=== PATIENT | female | born 1950 | race Caucasian/White ===

== ENCOUNTER → 2021-04-05 09:42 | Outpatient (CLI) | payer BC, SELFPAY | PROVIDERS: PCP Internal Medicine; Referring Provider Internal Medicine; Visit Provider Internal Medicine | DX: M81.0 Age-related osteoporosis without current pathological fracture (principal) | CPT/HCPCS: 77080 ==

== ENCOUNTER → 2021-07-24 16:24 | Outpatient (CLI) | payer BC, SELFPAY ==
[2021-07-24 16:50] LABS: Appearance Urine UA CLEAR; Bilirubin Urine UA NEGATIVE (NEGATIVE); Color Urine UA YELLOW; Glucose Urine UA NEGATIVE (Negative); Ketones Urine UA NEGATIVE (NEGATIVE); Leukocyte Esterase Urine UA 1+ (NEGATIVE); Nitrite Urine UA POSITIVE (Negative); Occult Blood Urine UA TRACE-LYSED (Negative); Protein Urine UA NEGATIVE (Negative); Specific Gravity Urine UA 1.025 (1.000-1.035); Urobilinogen Urine UA 0.2 E.U./dL (0.2)
[2021-07-24 17:01] LABS: Add Manual Diff / Slide Review NO; Amorphous Sediment Urine 2+; Bacteria Urine Moderate (10-30); Basophils Absolute Auto 0 /uL (0-100); Basophils Percent Auto 0.4 % (0-2); Culture Indicated Urine Cult Not Indicated; Eosinophils Absolute Auto 100 /uL (0-450); Eosinophils Percent Auto 1.8 % (2-4); Hematocrit 40.1 % (36-46); Hemoglobin 13.2 g/dL (12.0-16.0); Lymphocytes Absolute Auto 900 /uL (1100-4500); Lymphocytes Percent Auto 19.8 % (25-40); Mean Corpuscular HGB Conc 32.8 % (30-36); Mean Corpuscular Hemoglobin 30.8 PG (26-34); Mean Corpuscular Volume 93.9 fL (80-100); Monocytes Absolute Auto 400 /uL (0-900); Monocytes Percent Auto 7.5 % (3-14); Neutrophils Absolute Auto 3300 /uL (1500-7000); Neutrophils Percent Auto 70.5 % (50-75); Platelet Count 211 X10^3/uL (150-400); RBC Urine None Seen (0-5/HPF); Red Blood Cell Count 4.27 X10^6/uL (4.0-5.2); Red Cell Distribution Width 14.2 % (11.6-14.8); Renal Epithelial Cells Urine 5-10/HPF (0-1/HPF); Squamous Epithelial Cell Urine 10-30 /HPF (0-5/HPF); WBC Urine 5-10/HPF (0-5/HPF); White Blood Cell Count 4.7 X10^3/uL (4.5-11.0)
[2021-07-24 17:02] LABS: Hemoglobin A1C% w Est Avg Glu 4.8 % (4.0-6.0)
[2021-07-24 17:11] LABS: BUN Creatinine Ratio 17.9 (6-22); Blood Urea Nitrogen 17 mg/dL (7-17); Calcium 9.3 mg/dL (8.4-10.2); Carbon Dioxide 29 mmol/L (22-32); Chloride 107 mmol/L (98-107); Estimated Glomerular Filt Rate 58.5 mL/min (>60); Glucose 104 mg/dL (80-110); HEMOLYSIS < 15 (0-50); Potassium 4.4 mmol/L (3.4-5.1); Sodium 139 mmol/L (137-145)
== END ==
PROVIDERS: PCP Internal Medicine; Referring Provider Orthopaedic Surgery; Visit Provider Orthopaedic Surgery
DX: Z01.812 Encounter for preprocedural laboratory examination (principal); R73.9 Hyperglycemia, unspecified; N39.0 Urinary tract infection, site not specified
CPT/HCPCS: 36415; 80048; 81001; 83036; 85025; 93005; 93010

== ENCOUNTER → 2021-08-19 09:28 | Outpatient (CLI) | payer BC, SELFPAY ==
[2021-08-19 16:32] LABS: COVID19 -Nasal RAPID Negative (Negative)
== END ==
PROVIDERS: PCP Internal Medicine; Visit Provider Family Medicine Sleep Medicine
DX: Z20.822 Contact with and (suspected) exposure to COVID-19 (principal)
CPT/HCPCS: 87635; C9803

== ENCOUNTER 2021-08-20 09:00 | Day surgery (SDC) | payer BC, SELFPAY ==
[2021-08-20 12:17] VITALS: BMI 42.1
== END 2021-08-20 23:59 | disposition home or self-care (01) ==
LOC: OR 09-11 09:58
PROVIDERS: PCP Internal Medicine; Referring Provider Orthopaedic Surgery; Visit Provider Orthopaedic Surgery
DX: M17.11 Unilateral primary osteoarthritis, right knee (principal); D17.23 Benign lipomatous neoplasm of skin and subcutaneous tissue of right leg
CPT/HCPCS: 27447; 73560; 97162; 97530; C1776; C1713; C9290; J0171; J0690; J1170; J2250; J2405; J2704; J3010

== ENCOUNTER 2021-08-21 13:05 | Inpatient (IN) | payer MEDICARE, BC, SELFPAY ==
[2021-08-08 09:43] VITALS: BMI 42.1
[2021-08-20] VITALS (15 sets, daily range): BP systolic 92–121; BP diastolic 44–66; PULSE 59–69; RESP 10–16; TEMP 35.5–36.4; O2SAT 92–99; BMI 42.1
--- NOTE | 2021-08-20 | PATH_ITS ---
[facility] Accession Number: [id number] . 01 Material submitted: . knee - LIPOMA R KNEE . 01 Diagnosis: Right Knee, Excisions: Fragments of mature adipose tissue, consistent with lipoma. MRV 08/23/2021 0926 Local . 01 Electronically signed: . Ronen Skinner MD, Dermatopathologist NPI- [id number] . 01 Gross description: . LIPOMA R KNEE: Received in formalin are multiple fragment of shell soft tissue measuring 7.0 x 6.0 x 1.5 cm in aggregate. Tissue is inked. Specimen is sectioned and submitted in sales representative cash registers sections in 3 cassettes. /CODIE 08/22/2021 0104 Local . 01 Pathologist provided ICD-10: D17.9 . 01 CPT . 660541 Specimen Comment: A courtesy copy of this report has been sent to [facility] Pathology Performed at: 01 [facility] [address] [place] [address] [id number] MD Erik Robbins MD Phone: [phone]
--- NOTE | 2021-08-20 06:00 | DI.RAD.S_ITS ---
PROCEDURE: XR KNEE RT 1TO2V INDICATIONS: prosthesis placement TECHNIQUE: 2 view(s) of the knee acquired. COMPARISON: [facility], CR, XR KNEE ARTHRITIC SERIES , 04/03/2021, 11:21. FINDINGS: Bones: Patient is status post knee joint arthroplasty. Hardware components are in expected positions. Visualized bony structures are intact. Soft tissues: Overlying postoperative changes are noted. Soft tissue drain is in place. IMPRESSION: Expected postsurgical changes status post interval right total knee arthroplasty. No acute hardware complication seen. Dictated by: Dexter Duong M.D. on 08/20/2021 at 14:21 Approved by: Dexter Duong M.D. on 08/20/2021 at 14:22
[2021-08-20] MEDS: PREGABALIN 75 MG CAPSULE PO (07:14)
[2021-08-20] MEDS: LACTATED RINGERS 1,000 ML 42 ML IV ×2 (07:14→10:22)
[2021-08-20] MEDS: ACETAMINOPHEN 325 MG TABLET 975 MG PO (07:15)
[2021-08-20] MEDS: VANCOMYCIN 1,000 MG/200 ML PIGGYBACK 200 MG IV (07:22)
--- NOTE | 2021-08-20 07:46 | PM.PREOP ---
Pre-operative Note COVID-19 COVID-19 status: Negative Criteria for continued procedure: Increased loss of function and Continuing or worsening of significant or severe pain Interval Note History & Physical reviewed/Exam performed by Physician: Yes Changes to H&P: No
--- NOTE | 2021-08-20 07:47 | PM.OP.1 ---
Operative Date/Time/Diagnoses Date of procedure: 08/20/21 Time of procedure: 08:00 Pre-op diagnosis: Right knee osteoarthritis, right knee lipoma Post-op diagnosis: same Procedure & Clinicians Procedure: Right total knee arthroplasty, right knee excision of lipoma soft tissue mass Same procedure as scheduled: Yes Indications: The patient has had progressively worsening right knee pain with radiographic changes consistent with arthritis. Non-operative management has failed and the patient has requested total knee replacement. The risks, benefits and alternatives to surgery were discussed with the patient prior to proceeding. Risks discussed included, but were not limited to, failure to relieve pain, stiffness, infection, nerve damage, deep venous thrombosis, pulmonary embolism, stroke, coma, heart attack, permanent paralysis and , as well as the potential need for eventual revision of the prosthetic. She also has a large soft tissue mass on the medial aspect of her leg which was worked up with an MRI scan and showed evidence of a lipoma. Surgeon: Melvi Burdick Columnist/Commentator: Josephine Fung Anesthesia Type: General and Spinal Operative Notes Findings: Severe right knee osteoarthritis especially in the lateral compartment, fairly large medial soft tissue mass consistent with a lipoma, slightly grayish marginally perfused fatty tissue Closure Type: primary Specimen(s): none sent Prosthetic devices, grafts, tissues, transplants, or devices: [employer] BCS 2 size 7 femur, size 5 tibia, 10 mm poly, 35 x 9 mm patella Applied: drain(s) Estimated Blood Loss (mL): 300 Blood products transfused: none Tourniquet time (min): 89 Procedure in detail: The patient was seen in the pre-operative area, where the patient identified the right knee as the operative site and this was marked with my initials. The patient received pre-operative antibiotics, and was taken to the operating room and placed on the operative table in the supine position. After satisfactory anesthesia, a time lock expert out was performed. The right leg was encircled with a tourniquet about the proximal thigh, and the leg was prepared from the toes to the tourniquet with ChloroPrep in the usual fashion and draped through sterile drapes. The leg was elevated and exsanguinated with Eschmark bandage and the tourniquet inflated to [250] mmHg pressure. The knee was approached through an approximately 18 cm incision centered over the patella and carried into the knee through a medial parapatellar arthrotomy. A portion of the medial and lateral meniscus was resected. Soft tissue was carefully mobilized around the patella the patella was measured with a caliper. Bone was resected from the patella and the patellar height was reconstituted with up an appropriate sized patellar component. A cover was then placed on the patella. A small amount of additional medial and lateral meniscus was resected. The distal femur was cut at 5?. A [+2] cut was used. It looked like an appropriate distal femoral cut and the cut was made without difficulty. An extramedullary guide was used for the tibial cut. 10 mm was resected off the least affected side.The tibia was prepared. The rotation was assessed. The patient was placed in extension residual medial and lateral meniscus as well as any residual bone was carefully resected. 4mm additional tibia was resected. Hemostasis was achieved especially posteriorly. Additional local was injected into the posterior capsule. The extension gap was assessed and additional releases for gap balancing were performed as necessary. It was checked with the gap cartridge loading operator. The femoral component was trial was placed and the notch was finished. The rotation was assessed and the appropriate size femoral guide was placed on the distal femur and finishing cuts were made. There was no evidence of notching. The anterior, posterior and chamfer cuts were then made. The posterior osteophytes and soft tissues were then removed. The posterior capsule was injected with part of a mixture of 60 ml 0.25% Marcaine mixed with 20 ml Exparel for post operative pain control. The remainder of this mixture was injected into the capsule and subcutaneous tissues during cement curing. The tibial and femoral components were then placed and the knee placed through a range of motion. Range of motion was [0-130], with good stability throughout the range. The trials were then removed, and the tibia was finished. The bone was prepared with pulsatile lavage, and dried with a sponge. Cement was applied and the final prosthetics placed. During the curing of the cement attention was directed to the lipoma. She had a fairly large lipoma along the medial aspect of her knee. It was medially and in the posterior medial aspect of the distal thigh. Metzenbaum scissors was used to dissect along the medial aspect of the knee. There was fairly large about 4 or 5 cm soft tissue mass consistent with a lipoma that was encountered. It was removed but in a somewhat piecemeal fashion as it was quite friable. It was specifically removed in a way to attempt to minimize any compromise of the vascularity of the medial flap. More normal residual fatty tissue was left intentionally in order to maintain adequate blood flow to the medial flap. Soft tissue mass was sent to pathology a piecemeal fashion. Once the cement had fully cured. Excess cement was removed during and after cement curing. A brief Betadine soak was performed. After confirming there was no extruded cement posteriorly, the final tibial insert was placed. The knee was copiously irrigated and the tourniquet deflated. Hemostasis was obtained with the bovie. A drain was placed and brought out supero medially. A 2nd portion of the drain was placed into the subcutaneous cavity created from the soft tissue mass excision. Subcutaneous flap was gently tacked down medially with interrupted Vicryl. The capsule was closed with interrupted nonabsorbable suture. The subcutaneous layer was closed with barbed sutures, and the skin with a running 3-0 V-Lock suture and skin yehuda. An julian dressing was applied and the patient was taken to recovery having tolerated the procedure well. Complications: none Post-operative Condition: stable Disposition: Acute Care Plan for aftercare: The patient will be maintained on a standard total knee replacement protocol with weight bearing as tolerated. The patient will receive Eliquis and sequential compression devices for DVT prophylaxis. The patient will be discharged home when safe for the home environment.
[2021-08-20] MEDS: CEFAZOLIN 2 GM/20 ML SYRINGE IV ×3 (08:09→23:22)
[2021-08-20] MEDS: TRANEXAMIC ACID 1,000 MG VIAL 1000 MG INJ ×2 (08:29→10:04)
--- NOTE | 2021-08-20 08:37 | SUR.OPER ---
Supine on padded OR bed. Pillow under head, arms secured on padded armboards <90 degree abduction. Safety belt across torso. Non-operative leg secured with tape over blanket over lower leg. Operative leg secured in DeMayo/Yadiel/Nathe positioner. Foam padded brace at thigh of operative leg.
[2021-08-20] MEDS: BUPIVACAINE LIPOSOME 266 MG/20 ML VIAL INJ (08:48)
[2021-08-20] MEDS: BUPIVACAINE 0.25% (PF) 60 ML, EPINEPHrine 0.3 MG INJ (08:49)
[2021-08-20] MEDS: SODIUM CHLORIDE IRRIG SOLUTION 250 ML, POVIDONE-IODINE SPONGE STICKS 1 APPLIC IRR (08:50)
[2021-08-20] MEDS: HYDROMORPHONE 2 MG INJ IV ×2 (10:58→11:16)
[2021-08-20] MEDS: ONDANSETRON 4 MG/2 ML INJ IV (11:17)
[2021-08-20] MEDS: fentaNYL 250 MCG/5 ML INJ IV (11:19)
--- NOTE | 2021-08-20 11:41 | SUR.PHASEI ---
Report to Barbara SANDOVAL
--- NOTE | 2021-08-20 12:47 | PC.NURSE ---
Addendum entered by Belkis Morocho R.N. 08/20/21 18:41: Patient given 5mg of oxycodone earlier around 1330, somewhat helpful. She was also given 2 oxycodone around 1600 and patient has been comfortable since. She has not voided as of yet. Patient came to the floor around 1215, 8hours will be around 0815. Will let junior SANDOVAL know in pass down. Patients Hemovac was emptied times two for a total of 170cc of bloody drainage. She is resting comfortably. Addendum entered by Belkis Morocho R.N. 08/20/21 13:20: Patients blood pressure 90s/50s and 90s/46. She usually runs low with a low pulse. Friend in room and LR infusing. Original Note: Patient to room around 1215, she has a julian dressing to her r.knee that is cdi, hemovac drain will be unclamped at 1300. Patient is groggy but moaning out that her leg hurts. Last blood pressure 90s/50s, given dilaudid down in Pacu and some zofran. Patient states that she still has nausea but then goes back to sleep. When patients blood pressure is a bit more stable and pulse is up, will give patient some oxycodone for pain. She has ice on her knee. CMS wnl and patient has feeling to her bilateral feet.
[2021-08-20] MEDS: OXYCODONE IR 5 MG TABLET PO (13:14)
[2021-08-20] MEDS: LACTATED RINGERS 1,000 ML 100 ML IV (13:17)
--- NOTE | 2021-08-20 13:45 | PT.IIE ---
Current Diagnoses Benign lipomatous neoplasm of skin and subcutaneous tissue of right leg (08/20/21) Unilateral primary osteoarthritis, right knee (08/20/21) Surgery Performed Operation Date: 08/20/21 07:45 Actual Procedures p Total Knee Arthroplasty, lipoma excision right knee(Right) - Melvi Burdick MD Medical History (Last Updated 08/08/21 @ 10:30 by Cari Noe RN) Cervical cancer (~1991) Chronic anemia DDD (degenerative disc disease) Depression Dry skin Easy bruisability Esophageal spasm Fatty liver Fibromyalgia Guillain-Wellington syndrome (~1995) Hearing impaired Macular degeneration of both eyes JL on CPAP Paroxysmal A-fib RLS (restless legs syndrome) Sepsis (~2017) Physical Therapy Inpatient Evaluation/Re-Eval M1 PT/OT-IP Prior Functional Status Start: 08/20/21 14:57 Freq: NEEDED Status: Active Protocol: Document 08/20/21 13:45 AB (Rec: 08/20/21 15:10 AB [email or web address]) Medical Review Prior Functional Status Medical History Reviewed Yes Communication with confusion; drowsy Mobility and Gait pt's friend in room and provided PLOF and home set up info: stated that pt is independent with all mobilities and ambulation without AD but occasionally uses a SPC Social History Household Members none Living Arrangements Mobile home Number of Floors (Floors) One Floor Number of Stairs To Enter/Railing? 1 step to enter Home Environment High Toilet,Walk in Shower, Built-In Shower Seat Home Equipment Hand Held Shower,Lift Recliner ,Grab Bars Near Toilet Additional Social History Comment pt plans to sleep on her lift chair pt's friend will stay with her until August 30 and then pt's daughter will come in and stay with her august 31 M2 PT-IP Current Condition Start: 08/20/21 14:57 Freq: NEEDED Status: Active Protocol: Document 08/20/21 13:45 AB (Rec: 08/20/21 15:10 AB [email or web address]) Physical Therapy Current Condition Current Condition Evaluation Date 08/20/21 Treatment Diagnosis s/p R TKA; difficulty in walking Onset Date 08/20/21 M3 PT-IP Subjective Start: 08/20/21 14:57 Freq: NEEDED Status: Active Protocol: Document 08/20/21 13:45 AB (Rec: 08/20/21 15:10 AB [email or web address]) Subjective Physical Therapy Visit Type Type Initial Evaluation Visit Start Time 13:30 Visit Stop Time 14:45 Total Visit Minutes 60 Number of MANAGER MSW Visits 0 Physical Therapy Visit Comments Patient Comments c/o increase knee pain and wants to get up and stand Therapy Pain Assessment Pain When Pain Assessed At Rest Pain Present Pain Present Pain Reported Location Right Knee Intensity 10 Scale Used Numeric (0 - 10) M4 PT-IP Mobility and Gait Start: 08/20/21 14:57 Freq: NEEDED Status: Active Protocol: Document 08/20/21 13:45 AB (Rec: 08/20/21 15:10 AB [email or web address]) PT-Bed Mobility Assessment Supine to Sit Supine to Sit Moderate Assistance,1 Person Assistance Sit to Supine Sit to Supine Maximum Assistance,1 Person Assistance,2 Person Assistance ,Head of Bed Elevated PT-Transfer Assessment Comments Mobility Comments pt is impulsive, drowsy and restless and just wants to get up. educated on safety. BP checked: 114/83. completed supine to sit mod A and cues. pt able to sit on EOB CGA. pt is drowsy. BP checked: 106/ 55. pt falling asleep sitting on EOB but wants to sit for a while and stated that knee pain is less in sitting. BP checked: 95/55. pt falling asleep sitting. Standing not attempted due to safety concerns as pt is drowsy and will not be able to follow instructions. assisted pt to supine max A x 1-2 and max cues. positioned pt in bed. call light and table placed within reach. BP checked: 95/ 53. informed pt's friend regarding possible SNF at this time but will continue to assess progress. friend understood. PT-Balance Assessment Sitting Balance and Reactions Static Sitting Balance Ability Fair Dynamic Sitting Balance Ability Fair M5 PT-IP Objective Assessments Start: 08/20/21 14:57 Freq: NEEDED Status: Active Protocol: Document 08/20/21 13:45 AB (Rec: 08/20/21 15:10 AB [email or web address]) Orientation Orientation/Cognition Level of Alertness Lethargic Orientation Name Safety Awareness Decreased Safety Awareness Memory Description Short Term Impaired Gross Range of Motion Lower Extremity ROM Assessment Right Impaired Impairments pain limiting R knee movement Strength Lower Extremity Strength Assessment Right Impaired Hip 2-/5 Knee 2-/5 Muscle Tone Muscle Tone WNL Yes M6 PT-IP Treatment Start: 08/20/21 14:57 Freq: NEEDED Status: Active Protocol: Document 08/20/21 13:45 AB (Rec: 08/20/21 15:10 AB [email or web address]) Physical Therapy Treatment Education Education Provided Safety M7 PT-IP Assessment and Plan Start: 08/20/21 14:57 Freq: NEEDED Status: Active Protocol: Document 08/20/21 13:45 AB (Rec: 08/20/21 15:10 AB [email or web address]) PT Summary Assessment and Plan Potential Rehabilitation Potential Fair Status of Condition at Evaluation Evolving Summary Impairments Pain,ROM,Strength,Balance, Coordination,Sensation,Tone, Cognition,Bed Mobility, Transfers,Gait,Activity Tolerance Assessment Summary pt s/p R TKA and just had surgery this morning. pt is lethargic but restless with c/ o increase R knee pain and wants to get up but with decrease BP and not safe to stand. Pt was able to sit on EOB. required mod A with supine to sit but max A x 1-2 with sit to supine. will continue to assess progress but pt may require SNF rehab. will conduct caregiver training when appropriate. Goals Bed Mobility Goal Standby Assistance Transfer Goal Standby Assistance,Front Wheeled Walker Gait Goal Standby Assistance,Front Wheel Walker Gait Distance 100 Other Goals up/down 1 step using FWW Days to Meet Goals 5 Frequency of Treatment Frequency Of Treatment Twice a Day Treatment Plan Physical Therapy Treatment Plan Bed Mobility Training,Transfer Training,Gait Training, Therapeutic Exercise,Balance Retraining,Post Op Education, Discharge Planning,Hot or Cold Pack,Neuromuscular Re-ed, Coordination Retraining,Manual Therapy Weight Bearing Status Weight Bearing Status Weight Bear as Tolerated Allowed Weight Bearing Amount (enter % RLE WBAT or #) (%) Recommendations To Nursing Amount of Assist Needed PT/OT Assist Only Discharge Recommendations PT Discharge Recommendations Home with 05/01 Assist Available,Home Health,SNF Rehab,Home vs SNF Transportation Needs at Discharge Wheelchair/Cabulance,Stretcher /Ambulance
[2021-08-20] MEDS: ACETAMINOPHEN 325 MG TABLET 650 MG PO ×2 (14:54→20:13)
[2021-08-20] MEDS: OXYCODONE IR 10 MG TABLET PO ×3 (16:01→23:22)
[2021-08-20] MEDS: DOCUSATE 100 MG CAPSULE PO (20:13)
[2021-08-20] MEDS: ASPIRIN EC 81 MG TABLET PO (20:13)
[2021-08-20] MEDS: buPROPion SR 150 MG TAB PO (20:14)
[2021-08-20] MEDS: VIT C/E/ZN/COPPR/LUTEIN/ZEAXAN CAPSULE 1 CAP PO (20:15)
[2021-08-20] MEDS: PANTOPRAZOLE DR 20 MG TABLET PO (23:22)
[2021-08-21] VITALS: BP 113/70; PULSE 68; RESP 17; TEMP 36.7; O2SAT 94
[2021-08-21] MEDS: HYDROMORPHONE 2 MG TABLET PO ×4 (00:14→21:33)
[2021-08-21 04:00] VITALS: BP 118/59; PULSE 73; RESP 18; TEMP 36.7; O2SAT 97
[2021-08-21] MEDS: OXYCODONE IR 10 MG TABLET PO (05:09)
[2021-08-21 05:20] LABS: Hemoglobin 12.4 g/dL (12.0-16.0)
[2021-08-21] MEDS: LACTATED RINGERS 1,000 ML 100 ML IV ×2 (06:43→18:56)
[2021-08-21] MEDS: KETOROLAC 30 MG/ML VIAL 15 MG IV ×3 (06:45→15:49)
[2021-08-21] MEDS: ESCITALOPRAM 10 MG TABLET 20 MG PO (08:08)
[2021-08-21] MEDS: VIT C/E/ZN/COPPR/LUTEIN/ZEAXAN CAPSULE 1 CAP PO ×2 (08:08→21:33)
[2021-08-21] MEDS: dilTIAZem CD 120 MG CAP PO (08:09)
[2021-08-21] MEDS: ACETAMINOPHEN 325 MG TABLET 650 MG PO ×3 (08:09→21:34)
[2021-08-21] MEDS: DOCUSATE 100 MG CAPSULE PO ×2 (08:09→21:33)
[2021-08-21] MEDS: buPROPion SR 150 MG TAB PO ×2 (08:09→21:33)
[2021-08-21 08:15] VITALS: BP 125/56; PULSE 56; RESP 16; TEMP 36.9; O2SAT 96
--- NOTE | 2021-08-21 09:23 | CM.DANOTE ---
Addendum entered by Elena Baird R.N. 08/21/21 14:08: Spoke to patient and friend, Perla, who was in the room. She is a retired TAX COMPLIANCE AGENT, patient is a retired nurse. Mentioned skilled rehab, and patient really wants to go home, but feels that she needs another day here with therapy. [facility] does have referral, explained to patient that they can accept her on the COVID waiver if needed. Mentioned home health, patient 'is interested, has not used services before, and is open to any agency. She would like nursing, P.T, O.t, and bath aide. [facility] is listed on calendar for this week. Faxed over face sheet, face to face, orders, and today's progress note with P.T. note to [facility]. Called [facility] and spoke to Danette, she will look for referral. [facility] will keep referral as back up, and will complete PASSR as well. Addendum entered by Elena Baird R.N. 08/21/21 12:42: [facility] ran patient's insurance. She indicated that her Blue Cross is no longer her primary insurance, it is her Medicare A, this is as of December 30. Sent an email to the admission change group. There is no vaccination listed on the state web site. Palak at [facility] had originally stated that she could accept on the COVID waiver, but will have to speak to patient further about this. Addendum entered by Elena Baird R.N. 08/21/21 11:01: Jessica P.T, stated that patient did not do well. She will plan on working again with her this afternoon. Called Palak at [facility] and asked her if she accepted her insurance, Blue [employer] Federal. She indicated that she will run her insurance through, they aren't in network, and she may be responsible for some of the payment. Original Note: DCP: Case received, EMR reviewed and met with patient. Introduced self and role. Was able to obtain information regarding patient's baseline activity status at home prior to her surgery, as well as her current living situation. DCP assessment completed with information currently available. Patient is a 70 year old female who admitted yesterday morning to the care of the hospitalist team. PCP: Dr. Thomas. Payer: confirmed: [employer]. Patient came to the hospital for a surgical procedure. She had right total knee arthroplasty. Patient has history of osteoarthritis. Met with patient in her room. She was sitting in bed, alert and oriented. She did work with P.T. yesterday, and they stated that she was max assist, and may need skilled. Patient does not remember this. Confirmed that she lives here in [place] alone, is a , but has a friend that is staying with her until the 18, and her daughter, Kenyatta, who lives in the [facility], is to be coming up after that. At her baseline, she uses a cane, and does drive. She did ask about Meals on Wheels, can give her resources. Asked her if she would be willing to go to rehab if needed, and she stated, I'd rather not if I don't have to. She will work with P.T. today. P: DCP to continue to follow. Will see how she does with P.T. May give to Palak at [facility] to review, for she does have [employer], and would need insurance auth. Elena Baird RN/Licensing Registration Examiner Discharge Planning/Care Management CM Discharge Assessment Start: 08/21/21 09:20 Freq: Status: Active Protocol: Document 08/21/21 09:20 (Rec: 08/21/21 09:23 [id number]) Discharge Planning Assessment Assigned Business Operations Manager Elena Baird RN/Licensing Registration Examiner Advance Directives? No History Provided By Patient,Medical Record Prior Living Arrangements Mobile home Household Members none Type of transporation used prior to Drives own vehicle admit DME Already Rented / Owned Cane Barriers to Discharge No Discharge Plan Home Transportation Arrangement Friend Additional Comment May send referral to [facility], but will discuss with P. T. first. Whiteboard Updated in Patient Room with Yes name and ext. # of Business Operations Manager Review Status In Process Next Review Type Continued Stay Review Pre-Anesthesia Assessment Start: 08/08/21 09:43 Freq: Status: Active Protocol: Document 08/08/21 09:43 CAB (Rec: 08/08/21 10:46 CAB [id number]) Pre-Anesthesia Assessment Patient Information Reviewed Via Phone Assessment Assessment Completed With Patient Diagnostic Results BMP/CMP,CBC,EKG,Urinalysis Comment Labs/ECG @ [facility] 07/24/21, COVID screen @ 08/19/21 Primary Care Provider Stephen Thomas Seen Specialist in Last 12 Months Yes Specialist Seen Orthopedist Primary Language Yoruba Homeowner Association Manager Required No Height 5 ft 6 in Weight 261 lb Body Mass Index (BMI) 42.1 Hearing Ability Hard of Hearing,Use of Hearing Aid Visual Assist Glasses Dentition Type Teeth, Natural Present Barriers to Learning None Hx Anesthesia Reactions No Hx Family Anesthesia Reaction No Hx Malignant Hyperthermia No Hx Blood Transfusions No Anesthesia Review Requested No alcohol intake current alcohol intake frequency holidays/special occasions only Smoking Status Never smoker Substance Use Type does not use Pain Present Pain Reported Musculoskeletal Symptoms Abnormal Gait,Back Pain, Difficulty Walking,Joint Pain History of Falling (Recent or History of Yes ) Patient is completely paralyzed or No completely immobile Prosthesis or Orthotic Device Cane Mental Status Oriented to own ability Is patient on oxygen? No Does patient have RUTH/SOB No Hx Sleep Apnea Yes CPAP/BIPAP use prescribed and used routinely Will Bring CPAP/BIPAP DOS Yes Currently Taking a Beta Med No Hx Chest Pain No Hx SOB No Hx Syncope or Dizziness No Anti-Coagulant Therapy Yes: Eliquis-pt advised to hold [address] Burdick Has a Manager Solution No Cardiac Testing No Hx Pacemaker/ICD No Pacemaker Rep Required? No Cardiac Clearance Received Not Applicable Diet Type At Home Regular dysphagia Yes: Occasional, esophageal spasm Gastrointestinal Symptoms Diarrhea Bladder Pattern Incontinent,Urgency Urinary Catheter Present No Hx Urinary Self Catheterization No Diabetes No Patient No Lactating No Hx Drug Resistant Organism No Presence of External or Internal Medical Yes Devices Have you had any close contact with Yes: Daughter-approx 1 month someone diagnosed with COVID-19? ago Are you experiencing any of these No symptoms symptoms? Received a COVID vaccine? No Marital Status / Lives With none Prior Living Arrangements Mobile home Support System Friend(s) Does the Patient Have Assistance After Yes: Friend will be with pt Surgery for 2 weeks to assist Patient Discharge Plan Description Return Home Comment Pt advised one night length of stay per surgeon Feels Safe in Current Environment Yes Been Physically Hurt or Threatened By a No Person in Current Environment Do you have thoughts of harming yourself None or others? Are you currently considering suicide? No Do you have a plan to hurt yourself or No Plan others? Do You Have Any Spiritual Beliefs That No May Affect Your HC Choices? Do You Have Any Cultural Practices That No May Affect Your HC Choices? Comment Anabaptist Who Can We Speak to About Patient's Care Family, friends Identifying Code for Release of Patient Declines to issue Information Health Care Proxy/Next of Kin Emily Stoddard Kristi ([facility]) Health Care Proxy Emergency Contact Name Emily Cooperjenniffer ([facility]) Emergency Contact Advance Directives? No Power of Scruff Worker No PAC Instructions Bring CPAP/BIPAP,Do not shave/ clip surgical site,Durable medical equipment,Medications to take/avoid,Nasal antibiotic ,No ETOH/petroleum product on skin DOS,NPO,Post-op transportation,Pre-surgical wash,Sensory aids,Sturdy shoes /comfortable clothes
--- NOTE | 2021-08-21 10:38 | PT.IPTN ---
Current Diagnoses Benign lipomatous neoplasm of skin and subcutaneous tissue of right leg (08/20/21) Morbid (severe) obesity due to excess calories (08/20/21) Unilateral primary osteoarthritis, right knee (08/20/21) Presence of right artificial knee joint (08/20/21) Surgery Performed Operation Date: 08/20/21 07:45 Actual Procedures p Total Knee Arthroplasty, lipoma excision right knee(Right) - Melvi Burdick MD Physical Therapy Treatment Note M2 PT-IP Current Condition Start: 08/20/21 14:57 Freq: NEEDED Status: Active Protocol: Document 08/21/21 09:51 SP (Rec: 08/21/21 14:30 SP [id number]) Physical Therapy Current Condition Current Condition Evaluation Date 08/20/21 Treatment Diagnosis s/p R TKA; difficulty in walking Onset Date 08/20/21 M3 PT-IP Subjective Start: 08/20/21 14:57 Freq: NEEDED Status: Active Protocol: Document 08/21/21 09:51 SP (Rec: 08/21/21 14:30 SP [id number]) Subjective Physical Therapy Visit Type Type Treatment Note Visit Start Time 09:51 Visit Stop Time 10:38 Total Visit Minutes 47 Notes Vitals taken during tx: supine 105/46 HR 72 seated: 104/66 HR 76 post mobility: 100/55 HR 69 Number of ZOO KEEPER Visits 1 Physical Therapy Visit Comments Patient Comments c/o increase knee pain and wants to get up and stand Therapy Pain Assessment Pain When Pain Assessed At Rest Pain Present Pain Present Pain Reported Location Right Knee Intensity 7 Scale Used 7/10 at rest, 9/10 post mobility- declined stronger premedication Description With Movement Pain Behaviors Facial Grimacing,Guarding, Moaning,Restlessness Pain Management Techniques Distraction,Modification of Treatment,Re-positioning, Timing of Activity with Medications M4 PT-IP Mobility and Gait Start: 08/20/21 14:57 Freq: NEEDED Status: Active Protocol: Document 08/21/21 09:51 SP (Rec: 08/21/21 14:30 SP [id number]) PT-Bed Mobility Assessment Supine to Sit Supine to Sit Moderate Assistance,1 Person Assistance Scooting Scooting to Edge of Bed Moderate Assistance,Maximum Assistance PT-Transfer Assessment Sit to and From Stand Sit to and from Stand Maximum Assistance,1 Person Assistance,Use of Upper Extremities Equipment Transfer Assistive Device Gait Belt,Front Wheeled Walker Orthotic/Prosthetic Devices or Brace: No Transfers Transfer Destination Chair,Bedside Commode Transfer Technique Stand Step Pivot Transfer Ability Level of Assist Moderate Assistance,1 Person Assistance,Use of Upper Extremities Comments Mobility Comments Pt impulsive, requires cuing for safety sequencing. ZOO KEEPER instructed post op ex: AROM R LE AP x5, HS approx 30 deg flexion wtih out support. Support for trunk righting and Mod- Max A for scooting to EOB via transfer pad and support under RLE, unableto support self with increased pain 10. Sit>stand Max A x1, diffficulty coming to standing with noted RLE buckling, cued quad facilitation and provided support at anterior R knee, SPT bed>BSC to L, BUE WB on FWW. R knee buckled x1 support provided to recover.PT ableto reposition FWW self wtih cuing for awareness body positioning, back up fully and reach. Stand>Sit Mod A x1. Pt able to void, sit>stand Mod A x1, stood with FWW Min A, ZOO KEEPER assisted pericare in standing . SPT BSC to chair 180 deg with extra time completed. Mod A slow descent to chair, cued RLE forward positioning comfort and BUE on chair arms safety support cues. ZOO KEEPER instructed post op heel slide into flexion R knee. Pt requested keeping BLE on floor . 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 ZOO KEEPER educated required safety cues including not ableto ambulate to bathroom as requested, not fully safe at this time in mobility processing. Pt had call light and all needs in reach, AUTO STRIPER in room. Will continue to assess progress. Gait Assessment Comments Gait Comments SPT Mod A x1 w/FWW only approx 2 ft, decrease foot clearance , stride and WB into RLE, unsteady buckling x1. Stair Climbing Assessment Comments Stair Climbing Comments 1 step required assessment for safe return home. Unable to WB into RLE at this time, unsafe to assess. PT-Balance Assessment Sitting Balance and Reactions Static Sitting Balance Ability Fair Dynamic Sitting Balance Ability Fair Standing Balance and Reactions Static Standing Balance Ability Poor Dynamic Standing Balance Ability Poor Device Used FWW M5 PT-IP Objective Assessments Start: 08/20/21 14:57 Freq: NEEDED Status: Active Protocol: Document 08/20/21 13:45 AB (Rec: 08/20/21 15:10 AB [id number]) Orientation Orientation/Cognition Level of Alertness Lethargic Orientation Name Safety Awareness Decreased Safety Awareness Memory Description Short Term Impaired Gross Range of Motion Lower Extremity ROM Assessment Right Impaired Impairments pain limiting R knee movement Strength Lower Extremity Strength Assessment Right Impaired Hip 2-/5 Knee 2-/5 Muscle Tone Muscle Tone WNL Yes M6 PT-IP Treatment Start: 08/20/21 14:57 Freq: NEEDED Status: Active Protocol: Document 08/21/21 09:51 SP (Rec: 08/21/21 14:30 SP [id number]) Physical Therapy Treatment Exercises Exercises Ankle Pumps,Quad Sets,Heel Slides,Seated Knee Flexion/ Extension Education Education Provided Safety M7 PT-IP Assessment and Plan Start: 08/20/21 14:57 Freq: NEEDED Status: Active Protocol: Document 08/21/21 09:51 SP (Rec: 08/21/21 14:30 SP [id number]) PT Summary Assessment and Plan Potential Rehabilitation Potential Fair Status of Condition at Evaluation Evolving Summary Impairments Pain,ROM,Strength,Balance, Coordination,Sensation,Tone, Cognition,Bed Mobility, Transfers,Gait,Activity Tolerance Progress Towards Goals Progressing Toward Goals,Slow Progress due to Pain,Slow Progress due to Activity Tolerance Assessment Summary Pt requires Mod- Max A x1 for bed mob, STS w/ fWW, RLE buckling during transfers only at this time. Pt will require SNF vs home w/ HHPT at this time for progress strength and functional independence. Pt reports doesn't want to go to SNF, wants to see how afternoon will go and possible work with her friend. Goals Bed Mobility Goal Standby Assistance Transfer Goal Standby Assistance,Front Wheeled Walker Gait Goal Standby Assistance,Front Wheel Walker Gait Distance 100 Other Goals up/down 1 step using FWW Days to Meet Goals 5 Frequency of Treatment Frequency Of Treatment Twice a Day Treatment Plan Physical Therapy Treatment Plan Bed Mobility Training,Transfer Training,Gait Training, Therapeutic Exercise,Balance Retraining,Post Op Education, Discharge Planning,Hot or Cold Pack,Neuromuscular Re-ed, Coordination Retraining,Manual Therapy Other Recommendations and Next Treatment post op ex, check vitals, bed Focus mob, transfers, gait if able. Weight Bearing Status Weight Bearing Status Weight Bear as Tolerated Allowed Weight Bearing Amount (enter % RLE WBAT or #) (%) Recommendations To Nursing Amount of Assist Needed 2 Person Assist Discharge Recommendations PT Discharge Recommendations Home with 05/01 Assist Available,Home Health,SNF Rehab,Home vs SNF Equipment Needed for Home Before pt has personal FWW in room. Discharge Transportation Needs at Discharge Private Vehicle,Wheelchair/ Cabulance
--- NOTE | 2021-08-21 13:45 | PM.PNPO.1 ---
Subjective Subjective Date Patient Seen: 08/21/21 Time Patient Seen: 13:46 Interval history: Sitting up in bed, comfortable. Eating and voiding without difficulty. Did fairly well with PT this morning, but at this point needs maximum assistance. Has a lifelong friend, Brook, who will help her at home, but Brook is herself limited by a rotator cuff tear. Exam Vital Signs (past 8 hours): - 08/21/21 08:15 Temperature 98.4 F Pulse Rate 56 L Respiratory Rate 16 Blood Pressure 125/56 L Pulse Oximetry 96 Oxygen Delivery Method Nasal Cannula Oxygen Flow Rate 0 Narrative Exam Narrative: 5/5 strength in hip flexors, quadriceps, hamstrings, DF, PF, EHL bilaterally. Calves soft, compressible, nontender, and without palpable cords or masses. MAUREEN wrap CDI over KIMBERLY dressing. Hemovac with drains x 2, bloody drainage from both. Objective Labs Result Diagrams: 08/21/21 04:55 Labs: Laboratory Results - last 24 hr 08/21/21 04:55 Hgb 12.4 Hct 39.0 PFSH Medical History (Updated 08/21/21 @ 13:50 by Josephine Fung PA-C) Cervical cancer (~1991) Chronic anemia DDD (degenerative disc disease) Depression Dry skin Easy bruisability Esophageal spasm Fatty liver Fibromyalgia Guillain-Hanalei syndrome (~1995) Hearing impaired Macular degeneration of both eyes Morbid (severe) obesity due to excess calories JL on CPAP Paroxysmal A-fib RLS (restless legs syndrome) Sepsis (~2017) Surgical History (Updated 08/21/21 @ 13:50 by Josephine Fung PA-C) History of bladder surgery History of hysterectomy History of surgery Hx of abdominoplasty Hx of appendectomy (~1991) Hx of arthroscopy of right knee Hx of bariatric surgery (~1991) Hx of cholecystectomy (~1991) Social History household members: none Smoking Status: Never smoker alcohol intake: current Assessment & Plan Post-op Assessment and plan (1) Status post total knee replacement, right: Assessment and Plan narrative: Continue PT. May need HH or SNF if she is not ambulatory enough to discharge with minimal or SBA. Continue multimodal pain control. Pt cannot have NSAIDs d/t h/o gastric bypass. Continue Eliquis and SCDs for VTE prophylaxis. (2) Morbid (severe) obesity due to excess calories: Postoperative Procedures: Procedures Operation Date: 08/20/21 07:45 Actual Procedure Side Surgeon p Total Knee Arthroplasty, lipoma excision right knee Right Melvi Burdick MD Postoperative day: 1
[2021-08-21 14:00] VITALS: BP 104/51; PULSE 78; RESP 16; TEMP 37.1; O2SAT 96
--- NOTE | 2021-08-21 16:36 | PT.IPTN ---
Current Diagnoses Benign lipomatous neoplasm of skin and subcutaneous tissue of right leg (08/21/21) Morbid (severe) obesity due to excess calories (08/21/21) Unilateral primary osteoarthritis, right knee (08/21/21) Presence of right artificial knee joint (08/21/21) Surgery Performed Operation Date: 08/20/21 07:45 Actual Procedures p Total Knee Arthroplasty, lipoma excision right knee(Right) - Melvi Burdick MD Physical Therapy Treatment Note M2 PT-IP Current Condition Start: 08/20/21 14:57 Freq: NEEDED Status: Active Protocol: Document 08/21/21 16:20 SP (Rec: 08/21/21 18:56 SP [id number]) Physical Therapy Current Condition Current Condition Evaluation Date 08/20/21 Treatment Diagnosis s/p R TKA; difficulty in walking Onset Date 08/20/21 M3 PT-IP Subjective Start: 08/20/21 14:57 Freq: NEEDED Status: Active Protocol: Document 08/21/21 16:20 SP (Rec: 08/21/21 18:56 SP [id number]) Subjective Physical Therapy Visit Type Type Treatment Note Visit Start Time 16:20 Visit Stop Time 16:36 Total Visit Minutes 16 Notes Friend in room when arrived. Friend stated unable to give alot of support to pt if needing, more for balancing. Number of ECONOMIC DEVELOPMENT MANAGER Visits 2 Physical Therapy Visit Comments Patient Comments Pt willing to work with therapy. Patient Goals Return home with friend to assist her. Therapy Pain Assessment Pain When Pain Assessed During Mobility Pain Present Pain Present Pain Reported Location Right Knee Intensity 5 Scale Used 5/10 at rest, 7/10 with mobility Description With Movement Pain Behaviors Facial Grimacing,Guarding, Moaning,Restlessness Pain Management Techniques Distraction,Modification of Treatment,Re-positioning, Timing of Activity with Medications M4 PT-IP Mobility and Gait Start: 08/20/21 14:57 Freq: NEEDED Status: Active Protocol: Document 08/21/21 16:20 SP (Rec: 08/21/21 18:56 SP [id number]) PT-Transfer Assessment Sit to and From Stand Sit to and from Stand Maximum Assistance,1 Person Assistance,Use of Upper Extremities Equipment Transfer Assistive Device Gait Belt,Front Wheeled Walker Orthotic/Prosthetic Devices or Brace: No Transfers Transfer Destination Chair Transfer Technique Stand Step Pivot Transfer Ability Level of Assist Moderate Assistance,1 Person Assistance,Use of Upper Extremities Comments Mobility Comments Pt seated on commode when arrived 2nd attempt this pm. 1st attempt pt in bed with pain, waiting for medication. ECONOMIC DEVELOPMENT MANAGER donned gait belt, instructed be sure gait belt on when mobilizing out of bed due to unsteady RLE, verbalized understanding. Sit> Stand from BSC Max A x1, standing w/ FWW, Min- Mod A x1 for trunk standing support heavy BUE on FWW with cuing for R LE quad facilitation prevent buckling, while provided pericare assist post voiding. Pt ableto progress forward gait 4 steps then R hand turn to chair approx 3 ft away, step to patterning, minimal RLE WB in midstance during LLE advancement, didn;t buckle but very unsteady. cued sequencing BLE, FWW and direction positioning at this time, mod A x1. Cued to reach back Min A for slow descent to chair, pt able scoot back in chair self. ECONOMIC DEVELOPMENT MANAGER assisted leg rest elevation. Pt had call light and all needs in reach with friend in room before left. ECONOMIC DEVELOPMENT MANAGER discussed with pt and friend at this time recommending SNF vs home / available w/ HHPT due to decrease RLE WB and unable to assess further distance gait and 1 step mgt needs to perform to enter home. Pt stated wanted to try again tomorrow with friend if can, really doesn't want to go to SNF, even with friend also stating unable to provide more than CGA support, pt not seeing and understanding assist is requiring. pt and friend stated will be ready for CGT tomorrow at 1030. Will continue to assess progress. Gait Assessment Gait Gait Assistance Required: Moderate Assistance,Maximum Assistance,1 Person Assist Distance (Feet) 9 Able to Maintain Weight Bearing Status Yes During Gait Assistive Devices Assistive Device Gait Belt,Front Wheeled Walker Orthotic/Prosthetic Devices or Brace: No Gait Deviations General Gait Pattern Antalgic,Decreased Stride Length,Decreased Feet Clearance,Step-to Gait Factors Limiting Gait Function Factors Limiting Gait Function Decreased Activity Tolerance, Decreased Sensation,Decreased Strength,Limited Range of Motion,Pain,Poor Balance,Poor Safety Awareness,Respiratory Distress Comments Gait Comments Decreased RLE WB unsteady not good quad facilitation w/ heavy BUE WB on FWW (approx 25 % WB RLE), step to gait patterning, cued R quad facilitation and importance of knee extension. Pt ableto reposition FWW self, Mod- Mod A x1. Stair Climbing Assessment Comments Stair Climbing Comments Unable due to decrease WB into RLE, approx 25%, unable and not safe to assess. WIll try if safe to attempt, 1 step required for safe return home. PT-Balance Assessment Sitting Balance and Reactions Static Sitting Balance Ability Fair Dynamic Sitting Balance Ability Fair Standing Balance and Reactions Static Standing Balance Ability Poor Dynamic Standing Balance Ability Poor Device Used FWW M5 PT-IP Objective Assessments Start: 08/20/21 14:57 Freq: NEEDED Status: Active Protocol: Document 08/20/21 13:45 AB (Rec: 08/20/21 15:10 AB [id number]) Orientation Orientation/Cognition Level of Alertness Lethargic Orientation Name Safety Awareness Decreased Safety Awareness Memory Description Short Term Impaired Gross Range of Motion Lower Extremity ROM Assessment Right Impaired Impairments pain limiting R knee movement Strength Lower Extremity Strength Assessment Right Impaired Hip 2-/5 Knee 2-/5 Muscle Tone Muscle Tone WNL Yes M6 PT-IP Treatment Start: 08/20/21 14:57 Freq: NEEDED Status: Active Protocol: Document 08/21/21 16:20 SP (Rec: 08/21/21 18:56 SP [id number]) Physical Therapy Treatment Exercises Exercises Ankle Pumps,Seated Knee Flexion/Extension Knee ROM Measurement approx 85-90deg R knee flexion during seated on commode Education Education Provided Safety M7 PT-IP Assessment and Plan Start: 08/20/21 14:57 Freq: NEEDED Status: Active Protocol: Document 08/21/21 16:20 SP (Rec: 08/21/21 18:56 SP [id number]) PT Summary Assessment and Plan Potential Rehabilitation Potential Fair Status of Condition at Evaluation Evolving Summary Impairments Pain,ROM,Strength,Balance, Coordination,Sensation,Tone, Cognition,Bed Mobility, Transfers,Gait,Activity Tolerance Progress Towards Goals Progressing Toward Goals,Slow Progress due to Pain,Slow Progress due to Activity Tolerance Assessment Summary Mod- Max A x1STS from BSC, Mod Ax1 and assist toileting w/ FWW heavy BUE WB and not full wt on RLE (approx 25%). Able to progress gait approx 9 ft total w/ fWW Mod A x1 via ECONOMIC DEVELOPMENT MANAGER, friend observed only. Pt is unable to apply > 25% WB into RLE, not safe at this time to assess 1 step stair mgt with FWW for safe DC home. Recommending SNF at this time vs home 05/01 available of friend. Friend unableto provide > CGA due to bad R shld. Pt requested CGT tomorrow at 1030 to see if ableto do more self. Goals Bed Mobility Goal Standby Assistance Transfer Goal Standby Assistance,Front Wheeled Walker Gait Goal Standby Assistance,Front Wheel Walker Gait Distance 100 Other Goals up/down 1 step using FWW Days to Meet Goals 5 Frequency of Treatment Frequency Of Treatment Twice a Day Treatment Plan Physical Therapy Treatment Plan Bed Mobility Training,Transfer Training,Gait Training, Therapeutic Exercise,Balance Retraining,Post Op Education, Discharge Planning,Hot or Cold Pack,Neuromuscular Re-ed, Coordination Retraining,Manual Therapy Other Recommendations and Next Treatment post op ex, check vitals, bed Focus mob, transfers, gait if able. 1 PF step mgt required to return home. CGT 08/22 at 1030 with friend. Weight Bearing Status Weight Bearing Status Weight Bear as Tolerated Allowed Weight Bearing Amount (enter % RLE WBAT or #) (%) Recommendations To Nursing Amount of Assist Needed 1 Person Assist Discharge Recommendations PT Discharge Recommendations Home with 05/01 Assist Available,Home Health,SNF Rehab,Home vs SNF Equipment Needed for Home Before pt has personal FWW in room. Discharge Transportation Needs at Discharge Private Vehicle,Wheelchair/ Cabulance
[2021-08-21 20:00] VITALS: BP 102/43; PULSE 77; RESP 18; TEMP 36.6; O2SAT 95
[2021-08-21] MEDS: APIXABAN 5 MG TABLET PO (21:32)
[2021-08-21] MEDS: PANTOPRAZOLE DR 20 MG TABLET PO (21:33)
[2021-08-21 23:29] VITALS: BP 98/43; PULSE 69; RESP 18; TEMP 36.7; O2SAT 95
[2021-08-22] MEDS: KETOROLAC 30 MG/ML VIAL 15 MG IV ×2 (00:54→08:23)
[2021-08-22] MEDS: LACTATED RINGERS 1,000 ML 100 ML IV (05:23)
--- NOTE | 2021-08-22 05:40 | PC.NURSE ---
Pt slept well this shift Complained of pain, dilaudid and toradol given with good results. Pt using bed pain this shift.
[2021-08-22 06:28] VITALS: BP 97/56; PULSE 70; RESP 18; TEMP 37; O2SAT 95
[2021-08-22] MEDS: HYDROMORPHONE 2 MG TABLET PO (06:46)
--- NOTE | 2021-08-22 07:22 | PM.PNPO.1 ---
Subjective Subjective Date Patient Seen: 08/22/21 Time Patient Seen: 07:22 Interval history: Patient is complaining of moderate to severe right knee pain. She denies any fevers, chills, night sweats. No new numbness or tingling. The patient is hoping to be discharged home, her friend from [place] is here to assist her. She does have 1 step up to her house. She had difficulty yesterday with physical therapy and pain management. Exam Vital Signs (past 8 hours): - 08/21/21 23:29 08/22/21 06:28 Temperature 98.0 F 98.6 F Pulse Rate 69 70 Respiratory Rate 18 18 Blood Pressure 98/43 L 97/56 L Pulse Oximetry 95 95 Oxygen Delivery Method Nasal Cannula Oxygen Flow Rate 0 Narrative Exam Narrative: Pleasant 62-year-old female, resting comfortably in bed, no acute distress. Dressing is clean, dry, intact. Drain is still in place and has put out 75 cc this morning. My front of bilateral lower extremities: Motor function is grossly intact, sensation is grossly intact to light touch, calves are soft and nontender to palpation. Objective Labs Result Diagrams: 08/21/21 04:55 [facility] Medical History Cervical cancer (~1991) Chronic anemia DDD (degenerative disc disease) Depression Dry skin Easy bruisability Esophageal spasm Fatty liver Fibromyalgia Guillain-[place] syndrome (~1995) Hearing impaired Macular degeneration of both eyes Morbid (severe) obesity due to excess calories JL on CPAP Paroxysmal A-fib RLS (restless legs syndrome) Sepsis (~2017) Surgical History History of bladder surgery History of hysterectomy History of surgery Hx of abdominoplasty Hx of appendectomy (~1991) Hx of arthroscopy of right knee Hx of bariatric surgery (~1991) Hx of cholecystectomy (~1991) Social History household members: none Smoking Status: Never smoker alcohol intake: current Assessment & Plan Post-op Postoperative Procedures: Procedures Operation Date: 08/20/21 07:45 Actual Procedure Side Surgeon p Total Knee Arthroplasty, lipoma excision right knee Right Melvi Burdick MD Postoperative day: 2 Postoperative status: marginal pain control Postoperative status narrative: Stable status post right total knee arthroplasty, lipoma excision Postoperative plan narrative: -mobilize with PT. Encourage p.o. pain meds prior to physical therapy. Weightbearing as tolerated with front wheel walker -continue with current pain regimen: Tylenol as scheduled, oxy 5-10 mg for moderate to severe pain, Dilaudid 2 mg as needed for severe pain -Eliquis 5 mg daily for DVT prophylaxis -disposition: Possibly home today if she does well with physical therapy and her pain is better controlled, otherwise we will need to consider a care home facility
[2021-08-22] MEDS: buPROPion SR 150 MG TAB PO ×2 (08:23→21:53)
[2021-08-22] MEDS: ACETAMINOPHEN 325 MG TABLET 650 MG PO ×3 (08:23→21:52)
[2021-08-22] MEDS: APIXABAN 5 MG TABLET PO ×2 (08:23→21:53)
[2021-08-22] MEDS: VIT C/E/ZN/COPPR/LUTEIN/ZEAXAN CAPSULE 1 CAP PO ×2 (08:24→21:53)
[2021-08-22] MEDS: OXYCODONE IR 10 MG TABLET PO ×2 (08:24→21:52)
[2021-08-22] MEDS: ESCITALOPRAM 10 MG TABLET 20 MG PO (08:24)
[2021-08-22] MEDS: DOCUSATE 100 MG CAPSULE PO ×2 (08:24→21:53)
[2021-08-22] MEDS: dilTIAZem CD 120 MG CAP PO (08:24)
[2021-08-22] MEDS: CYCLOBENZAPRINE 10 MG TABLET PO ×2 (08:24→21:51)
--- NOTE | 2021-08-22 11:48 | PC.NURSE ---
Addendum entered by Adriana Ritchie R.N. 08/22/21 16:07: Patients drain removed, patient tolerated. MAUREEN re-wrapped. CMS intact. KIMBERLY intact, scant drainage noted. Patient encouraged to continue drinking fluids. Patient on bedpan for void. Endorses pain 4/10 at this time, Tylenol administered. Call light in reach. Friend remains bedside. SDC's on bilateral. Original Note: Patient resting with eyes closed, breathing unlabored at 16 bpm, normal depth, CPAP on, continuous pulse ox on. Friend is at bedside. Reports this is the most comfortable she has seen the patient since her surgery. SCD's on bilaterally. Patient responds to inquiry, pain appears to be controlled. Call light in reach, will continue to monitor.
[2021-08-22 11:55] VITALS: BP 82/57; PULSE 68; RESP 18; TEMP 36; O2SAT 90
--- NOTE | 2021-08-22 11:57 | PT-IP ANOTE ---
Attempted to see pt 10:44 and 11:57 AM, pt too lethargic following medication to participate. Will attempt again in PM.
[2021-08-22] MEDS: OXYCODONE IR 5 MG TABLET PO (13:24)
--- NOTE | 2021-08-22 14:57 | PT.IPTN ---
Current Diagnoses Benign lipomatous neoplasm of skin and subcutaneous tissue of right leg (08/21/21) Morbid (severe) obesity due to excess calories (08/21/21) Unilateral primary osteoarthritis, right knee (08/21/21) Presence of right artificial knee joint (08/21/21) Surgery Performed Operation Date: 08/20/21 07:45 Actual Procedures p Total Knee Arthroplasty, lipoma excision right knee(Right) - Melvi Burdick MD Physical Therapy Treatment Note M2 PT-IP Current Condition Start: 08/20/21 14:57 Freq: NEEDED Status: Active Protocol: Document 08/21/21 16:20 SP (Rec: 08/21/21 18:56 SP [id number]) Physical Therapy Current Condition Current Condition Evaluation Date 08/20/21 Treatment Diagnosis s/p R TKA; difficulty in walking Onset Date 08/20/21 M3 PT-IP Subjective Start: 08/20/21 14:57 Freq: NEEDED Status: Active Protocol: Document 08/22/21 14:36 KS (Rec: 08/22/21 16:09 KS [id number]) Subjective Physical Therapy Visit Type Type Treatment Note Visit Start Time 14:36 Visit Stop Time 14:57 Total Visit Minutes 21 Notes Friend in room when arrived. Friend stated unable to give alot of support to pt if needing, more for balancing. Number of COMMUNITY EDUCATOR Visits 3 Physical Therapy Visit Comments Patient Comments Pt willing to work with therapy but reports feeling very groggy. M4 PT-IP Mobility and Gait Start: 08/20/21 14:57 Freq: NEEDED Status: Active Protocol: Document 08/22/21 14:36 KS (Rec: 08/22/21 16:09 KS [id number]) PT-Transfer Assessment Comments Mobility Comments Pt in bed upon arrival and BP: 87/55 and pt reporting feeling very tired and groggy but agreeable to do exercises in bed. Instructed pt and pt completed 1x10 bilateral ankle pumps, quad sets, heel slides , and glut sets. Pt fell asleep several times during exercise and needed frequent cues as she would lose count or drift off. Pt unsafe to get out of bed due to low BP and grogginess. Gait Assessment Comments Gait Comments Unable to ambulate today. Stair Climbing Assessment Comments Stair Climbing Comments Unable M5 PT-IP Objective Assessments Start: 08/20/21 14:57 Freq: NEEDED Status: Active Protocol: Document 08/20/21 13:45 AB (Rec: 08/20/21 15:10 AB [id number]) Orientation Orientation/Cognition Level of Alertness Lethargic Orientation Name Safety Awareness Decreased Safety Awareness Memory Description Short Term Impaired Gross Range of Motion Lower Extremity ROM Assessment Right Impaired Impairments pain limiting R knee movement Strength Lower Extremity Strength Assessment Right Impaired Hip 2-/5 Knee 2-/5 Muscle Tone Muscle Tone WNL Yes M6 PT-IP Treatment Start: 08/20/21 14:57 Freq: NEEDED Status: Active Protocol: Document 08/22/21 14:36 KS (Rec: 08/22/21 16:09 KS [id number]) Physical Therapy Treatment Exercises Exercises Ankle Pumps,Gluteal Sets,Quad Sets,Heel Slides Education Education Provided Safety M7 PT-IP Assessment and Plan Start: 08/20/21 14:57 Freq: NEEDED Status: Active Protocol: Document 08/22/21 14:36 KS (Rec: 08/22/21 16:09 KS [id number]) PT Summary Assessment and Plan Potential Rehabilitation Potential Fair Status of Condition at Evaluation Evolving Summary Impairments Pain,ROM,Strength,Balance, Coordination,Sensation,Tone, Cognition,Bed Mobility, Transfers,Gait,Activity Tolerance Progress Towards Goals Progressing Toward Goals,Slow Progress due to Pain,Slow Progress due to Activity Tolerance Assessment Summary Pt unable to participate much today due to grogginess and low BP. Able to complete exercises in bed to facilitate blood flow, ROM, and strengthening, but drifted off to sleep several times. At this time, pt will requiee SNF to improve functional mobility independence. Will continue to assess progress. Goals Bed Mobility Goal Standby Assistance Transfer Goal Standby Assistance,Front Wheeled Walker Gait Goal Standby Assistance,Front Wheel Walker Gait Distance 100 Other Goals up/down 1 step using FWW Days to Meet Goals 5 Frequency of Treatment Frequency Of Treatment Twice a Day Treatment Plan Physical Therapy Treatment Plan Bed Mobility Training,Transfer Training,Gait Training, Therapeutic Exercise,Balance Retraining,Post Op Education, Discharge Planning,Hot or Cold Pack,Neuromuscular Re-ed, Coordination Retraining,Manual Therapy Other Recommendations and Next Treatment post op ex, check vitals, bed Focus mob, transfers, gait if able. 1 PF step mgt required to return home. CGT 08/22 at 1030 with friend. Weight Bearing Status Weight Bearing Status Weight Bear as Tolerated Allowed Weight Bearing Amount (enter % RLE WBAT or #) (%) Recommendations To Nursing Amount of Assist Needed 1 Person Assist Discharge Recommendations PT Discharge Recommendations Home with 05/01 Assist Available,Home Health,SNF Rehab,Home vs SNF Equipment Needed for Home Before pt has personal FWW in room. Discharge Transportation Needs at Discharge Private Vehicle,Wheelchair/ Cabulance
[2021-08-22 19:45] VITALS: BP 110/55; PULSE 79; RESP 14; TEMP 36.4; O2SAT 95
[2021-08-22] MEDS: PANTOPRAZOLE DR 20 MG TABLET PO (21:52)
[2021-08-23 06:00] VITALS: BP 110/60; PULSE 74; RESP 14; TEMP 36.8; O2SAT 96
[2021-08-23] MEDS: OXYCODONE IR 5 MG TABLET PO ×2 (07:40→15:14)
--- NOTE | 2021-08-23 08:57 | P.PN_ITS ---
Subjective Subjective Date Patient Seen: 08/23/21 Time Patient Seen: 08:57 Interval history: Patient is complaining of moderate to severe right knee pain. The here she is hoping to go home instead of with physical therapy, however yesterday she developed signs and able to complete PT due to drowsiness from her medications. Denies any new numbness or tingling, no shortness of breath or chest pain. Exam Vital Signs (past 8 hours): - 08/23/21 06:00 Temperature 98.2 F Pulse Rate 74 Respiratory Rate 14 Blood Pressure 110/60 Pulse Oximetry 96 Oxygen Delivery Method BiPAP Oxygen Flow Rate 0 Narrative Exam Narrative: Pleasant 70-year-old female, resting comfortably in bed, no acute distress. Dressing demonstrates some scant serosanguineous drainage, no surrounding erythema or induration. Bilateral lower extremities: Motor function is grossly intact, sensation is grossly intact to light touch, calves are soft and nontender to palpation. Objective Labs Result Diagrams: 08/21/21 04:55 [facility] Medical History Cervical cancer (~1991) Chronic anemia DDD (degenerative disc disease) Depression Dry skin Easy bruisability Esophageal spasm Fatty liver Fibromyalgia Guillain-[place] syndrome (~1995) Hearing impaired Macular degeneration of both eyes Morbid (severe) obesity due to excess calories JL on CPAP Paroxysmal A-fib RLS (restless legs syndrome) Sepsis (~2017) Surgical History History of bladder surgery History of hysterectomy History of surgery Hx of abdominoplasty Hx of appendectomy (~1991) Hx of arthroscopy of right knee Hx of bariatric surgery (~1991) Hx of cholecystectomy (~1991) Social History household members: none Smoking Status: Never smoker alcohol intake: current Assessment & Plan Post-op Postoperative Procedures: Procedures Operation Date: 08/20/21 07:45 Actual Procedure Side Surgeon p Total Knee Arthroplasty, lipoma excision right knee Right Melvi Burdick MD Postoperative day: 3 Postoperative status: marginal pain control Postoperative status narrative: Stable status post right total knee arthroplasty, lipoma excision Postoperative plan narrative: -mobilize with PT. Weightbearing as tolerated front wheel walker -changing current pain regimen: Adding long-acting oxy 10 mg q.12 , plus short- acting oxy every 3-4 hours as needed. At discouraged use of Dilaudid oral as well as cyclobenzaprine due to drowsiness. -continue Eliquis 5 mg b.i.d. for DVT prophylaxis -possibly DC home today after 2 sessions of PT. The patient has a friend from [place] available to help her at home.
[2021-08-23] MEDS: ACETAMINOPHEN 325 MG TABLET 650 MG PO ×3 (09:05→20:58)
[2021-08-23] MEDS: APIXABAN 5 MG TABLET PO ×2 (09:06→20:58)
[2021-08-23] MEDS: buPROPion SR 150 MG TAB PO ×2 (09:06→20:58)
[2021-08-23] MEDS: dilTIAZem CD 120 MG CAP PO (09:07)
[2021-08-23] MEDS: DOCUSATE 100 MG CAPSULE PO ×2 (09:07→20:58)
[2021-08-23] MEDS: VIT C/E/ZN/COPPR/LUTEIN/ZEAXAN CAPSULE 1 CAP PO ×2 (09:07→20:58)
[2021-08-23] MEDS: ESCITALOPRAM 10 MG TABLET 20 MG PO (09:07)
[2021-08-23] MEDS: OXYCODONE IR 10 MG TABLET PO (10:35)
--- NOTE | 2021-08-23 11:04 | PT.IPTN ---
Current Diagnoses Benign lipomatous neoplasm of skin and subcutaneous tissue of right leg (08/21/21) Morbid (severe) obesity due to excess calories (08/21/21) Unilateral primary osteoarthritis, right knee (08/21/21) Presence of right artificial knee joint (08/21/21) Surgery Performed Operation Date: 08/20/21 07:45 Actual Procedures p Total Knee Arthroplasty, lipoma excision right knee(Right) - Melvi Burdick MD Physical Therapy Treatment Note M2 PT-IP Current Condition Start: 08/20/21 14:57 Freq: NEEDED Status: Active Protocol: Document 08/21/21 16:20 SP (Rec: 08/21/21 18:56 SP [id number]) Physical Therapy Current Condition Current Condition Evaluation Date 08/20/21 Treatment Diagnosis s/p R TKA; difficulty in walking Onset Date 08/20/21 M3 PT-IP Subjective Start: 08/20/21 14:57 Freq: NEEDED Status: Active Protocol: Document 08/23/21 10:40 KS (Rec: 08/23/21 12:57 KS [id number]) Subjective Physical Therapy Visit Type Type Treatment Note Visit Start Time 10:40 Visit Stop Time 11:04 Total Visit Minutes 24 Notes Friend in room when arrived. Friend stated unable to give alot of support to pt if needing, more for balancing. Number of SCREW MACHINE SET UP OPERATOR Visits 4 Physical Therapy Visit Comments Patient Comments Pt willing to work with therapy but reports 10/10 pain Therapy Pain Assessment Pain When Pain Assessed At Rest Pain Present Pain Present Pain Reported Location Right Knee Intensity 10 Scale Used Numeric (0 - 10) Pain Behaviors Facial Grimacing,Guarding, Moaning,Restlessness Pain Management Techniques Distraction,Modification of Treatment,Re-positioning M4 PT-IP Mobility and Gait Start: 08/20/21 14:57 Freq: NEEDED Status: Active Protocol: Document 08/23/21 10:40 KS (Rec: 08/23/21 12:57 KS [id number]) PT-Transfer Assessment Sit to and From Stand Sit to and from Stand Moderate Assistance,1 Person Assistance,Use of Upper Extremities Equipment Transfer Assistive Device Gait Belt,Front Wheeled Walker Orthotic/Prosthetic Devices or Brace: No Transfers Transfer Destination Chair Transfer Technique Pt ambulated w/ FWW Transfer Ability Level of Assist Moderate Assistance,1 Person Assistance,Use of Upper Extremities Comments Mobility Comments Pt on BSC upon arrival, cues and CGA for scooting to edge and Mod A w/ cues for hand placement for sit<>Stand w/ FWW. Pt able to weight shift ~ 10 seconds followed by additional [address] w/ difficulty elevating RLE off of ground. Pt ambulated ~4 ft to chair and sat down calling out in pain. Pt performed two additional sit<>stands w/ FWW Mod A and cues for keeping RLE more extended to avoid some pain during transition, she verbalized some relief but had quick approach to fatigue and requested to get back in chair following third stance and 10 more seconds marching in place. Pt left in chair w all needs in reach and friend in room. Gait Assessment Gait Gait Assistance Required: Moderate Assistance,1 Person Assist Distance (Feet) 4 Able to Maintain Weight Bearing Status Yes During Gait Assistive Devices Assistive Device Gait Belt,Front Wheeled Walker Orthotic/Prosthetic Devices or Brace: No Gait Deviations General Gait Pattern Antalgic,Decreased Stride Length,Decreased Feet Clearance,Step-to Gait Factors Limiting Gait Function Factors Limiting Gait Function Decreased Activity Tolerance, Decreased Sensation,Decreased Strength,Limited Range of Motion,Pain,Poor Balance,Poor Safety Awareness,Respiratory Distress Comments Gait Comments Pt very limited due to pain and weakness. Decreased stride and foot clearance. Stair Climbing Assessment Comments Stair Climbing Comments Unable to assess this AM due to low activity tolerance and pain. PT-Balance Assessment Sitting Balance and Reactions Static Sitting Balance Ability Fair Dynamic Sitting Balance Ability Fair Standing Balance and Reactions Static Standing Balance Ability Fair Dynamic Standing Balance Ability Poor Device Used FWW M5 PT-IP Objective Assessments Start: 08/20/21 14:57 Freq: NEEDED Status: Active Protocol: Document 08/20/21 13:45 AB (Rec: 08/20/21 15:10 AB [id number]) Orientation Orientation/Cognition Level of Alertness Lethargic Orientation Name Safety Awareness Decreased Safety Awareness Memory Description Short Term Impaired Gross Range of Motion Lower Extremity ROM Assessment Right Impaired Impairments pain limiting R knee movement Strength Lower Extremity Strength Assessment Right Impaired Hip 2-/5 Knee 2-/5 Muscle Tone Muscle Tone WNL Yes M6 PT-IP Treatment Start: 08/20/21 14:57 Freq: NEEDED Status: Active Protocol: Document 08/23/21 10:40 KS (Rec: 08/23/21 12:57 KS [id number]) Physical Therapy Treatment Exercises Exercises Ankle Pumps Education Education Provided Safety Other Treatments Other Treatment Performed Discussed possible SNF as pt does not have enough assist at home M7 PT-IP Assessment and Plan Start: 08/20/21 14:57 Freq: NEEDED Status: Active Protocol: Document 08/23/21 10:40 KS (Rec: 08/23/21 12:57 KS [id number]) PT Summary Assessment and Plan Potential Rehabilitation Potential Fair Status of Condition at Evaluation Evolving Summary Impairments Pain,ROM,Strength,Balance, Coordination,Sensation,Tone, Cognition,Bed Mobility, Transfers,Gait,Activity Tolerance Progress Towards Goals Progressing Toward Goals,Slow Progress due to Pain,Slow Progress due to Activity Tolerance Assessment Summary Pt remains very limited by pain, weakness, and low activity tolerance. In total she completed 3 sit<>stands w/ FWW Mod A and cues for hand placement, 2x 10 seconds weight shifting and marching in place, and 4 ft ambulation. She has difficulty elevating RLE off floor when ambulating and needs assist to slide her foor forward when sitting or standing to avoid pain from pending. At this time, she will require SNF to improve strength and functional mobility independence. Goals Bed Mobility Goal Standby Assistance Transfer Goal Standby Assistance,Front Wheeled Walker Gait Goal Standby Assistance,Front Wheel Walker Gait Distance 100 Other Goals up/down 1 step using FWW Days to Meet Goals 5 Frequency of Treatment Frequency Of Treatment Twice a Day Treatment Plan Physical Therapy Treatment Plan Bed Mobility Training,Transfer Training,Gait Training, Therapeutic Exercise,Balance Retraining,Post Op Education, Discharge Planning,Hot or Cold Pack,Neuromuscular Re-ed, Coordination Retraining,Manual Therapy Other Recommendations and Next Treatment post op ex, check vitals, bed Focus mob, transfers, gait if able. 1 PF step mgt required to return home. CGT 08/22 at 1030 with friend. Weight Bearing Status Weight Bearing Status Weight Bear as Tolerated Allowed Weight Bearing Amount (enter % RLE WBAT or #) (%) Recommendations To Nursing Amount of Assist Needed 1 Person Assist Discharge Recommendations PT Discharge Recommendations Home with 05/01 Assist Available,Home Health,SNF Rehab,Home vs SNF Equipment Needed for Home Before pt has personal FWW in room. Discharge Transportation Needs at Discharge Private Vehicle,Wheelchair/ Cabulance
[2021-08-23 11:40] VITALS: BP 118/62; RESP 17; O2SAT 97
--- NOTE | 2021-08-23 12:11 | PC.NURSE ---
Patient up to chair after using BSC. Endorses pain with movement in the RLE, dressing intact, quarter size drainage noted x 4 on KIMBERLY. Drain sites remains CDI. No Drains. CMS intact bilat, pulses equal, leg warm, noted swelling on medial aspect of knee. Patient able to ambulate with 1p assist using FWW. Reports pain 5-8/10 depending on activity. Patient encouraged to remain in chair for lunch. Using incentive spirometer. Denies abdominal pain, endorses flatus, BT active x 4, voiding without complications. SCD's on when in bed, removed for activity and while in chair. Patient denies further needs at this time. Call light in reach. Friend remains bedside.
[2021-08-23] MEDS: OXYCODONE ER 10 MG TAB PO ×2 (13:32→20:58)
--- NOTE | 2021-08-23 14:51 | PT.IPTN ---
Current Diagnoses Benign lipomatous neoplasm of skin and subcutaneous tissue of right leg (08/21/21) Morbid (severe) obesity due to excess calories (08/21/21) Unilateral primary osteoarthritis, right knee (08/21/21) Presence of right artificial knee joint (08/21/21) Surgery Performed Operation Date: 08/20/21 07:45 Actual Procedures p Total Knee Arthroplasty, lipoma excision right knee(Right) - Melvi Burdick MD Physical Therapy Treatment Note M2 PT-IP Current Condition Start: 08/20/21 14:57 Freq: NEEDED Status: Active Protocol: Document 08/21/21 16:20 SP (Rec: 08/21/21 18:56 SP [id number]) Physical Therapy Current Condition Current Condition Evaluation Date 08/20/21 Treatment Diagnosis s/p R TKA; difficulty in walking Onset Date 08/20/21 M3 PT-IP Subjective Start: 08/20/21 14:57 Freq: NEEDED Status: Active Protocol: Document 08/23/21 14:30 KS (Rec: 08/23/21 15:23 KS [id number]) Subjective Physical Therapy Visit Type Type Treatment Note Visit Start Time 14:30 Visit Stop Time 14:51 Total Visit Minutes 21 Notes Friend in room when arrived. Friend stated unable to give alot of support to pt if needing, more for balancing. Number of CABLE BRAIDER Visits 5 Physical Therapy Visit Comments Patient Comments Pt willing to work with therapy Therapy Pain Assessment Pain When Pain Assessed At Rest Pain Present Pain Present Pain Reported Location Right Knee Intensity 7 Scale Used 9/10 w/ mobility Pain Behaviors Facial Grimacing,Guarding, Moaning,Restlessness Pain Management Techniques Distraction,Modification of Treatment,Re-positioning, Timing of Activity with Medications M4 PT-IP Mobility and Gait Start: 08/20/21 14:57 Freq: NEEDED Status: Active Protocol: Document 08/23/21 14:30 KS (Rec: 08/23/21 15:23 KS [id number]) PT-Bed Mobility Assessment Supine to Sit Supine to Sit Minimal Assistance,Moderate Assistance,1 Person Assistance ,Head of Bed Elevated,Bedrails Sit to Supine Sit to Supine Moderate Assistance,1 Person Assistance,Head of Bed Elevated Scooting Scooting to Edge of Bed Contact Guard Assistance PT-Transfer Assessment Sit to and From Stand Sit to and from Stand Moderate Assistance,1 Person Assistance,Use of Upper Extremities Equipment Transfer Assistive Device Gait Belt,Front Wheeled Walker Orthotic/Prosthetic Devices or Brace: No Transfers Transfer Destination Bed Transfer Technique Pt ambulated w/ FWW Transfer Ability Level of Assist Moderate Assistance,1 Person Assistance,Use of Upper Extremities Comments Mobility Comments Pt in bed w/ friend in room upon arrival reporting 7/10 pain but premedicated. Min to Mod A for sup<>sit for LE assistance out of bed, CGA for scooting. Mod A and cues for sit<>Stand w/ FWW. Pt then weight shifting and marched in place ~15 seconds each before ambulating. Pt noyl able to tolerate ~8 ft ambulation due to increased pain to 9/10. Pt returned to bed and required Mod A for LE elevation into bed. Discussed SNF w/ pt who seems to be becoming more agreeable. Friend is unable to provide assist needed. Gait Assessment Gait Gait Assistance Required: Minimum Assistance,1 Person Assist Distance (Feet) 8 Able to Maintain Weight Bearing Status Yes During Gait Assistive Devices Assistive Device Gait Belt,Front Wheeled Walker Orthotic/Prosthetic Devices or Brace: No Gait Deviations General Gait Pattern Antalgic,Decreased Stride Length,Decreased Feet Clearance,Step-to Gait Factors Limiting Gait Function Factors Limiting Gait Function Decreased Activity Tolerance, Decreased Sensation,Decreased Strength,Limited Range of Motion,Pain,Poor Balance,Poor Safety Awareness,Respiratory Distress Comments Gait Comments Min A for FWW management and cues. Unable to lift RLE off floor and slides toes while walking w/ step to pattern. Stair Climbing Assessment Comments Stair Climbing Comments Unable to assess due to pain and low activity tolerance PT-Balance Assessment Sitting Balance and Reactions Static Sitting Balance Ability Fair Dynamic Sitting Balance Ability Fair Standing Balance and Reactions Static Standing Balance Ability Fair Dynamic Standing Balance Ability Poor Device Used FWW M5 PT-IP Objective Assessments Start: 08/20/21 14:57 Freq: NEEDED Status: Active Protocol: Document 08/20/21 13:45 AB (Rec: 08/20/21 15:10 AB [id number]) Orientation Orientation/Cognition Level of Alertness Lethargic Orientation Name Safety Awareness Decreased Safety Awareness Memory Description Short Term Impaired Gross Range of Motion Lower Extremity ROM Assessment Right Impaired Impairments pain limiting R knee movement Strength Lower Extremity Strength Assessment Right Impaired Hip 2-/5 Knee 2-/5 Muscle Tone Muscle Tone WNL Yes M6 PT-IP Treatment Start: 08/20/21 14:57 Freq: NEEDED Status: Active Protocol: Document 08/23/21 14:30 KS (Rec: 08/23/21 15:23 KS [id number]) Physical Therapy Treatment Education Education Provided Safety Other Treatments Other Treatment Performed Discussed possible SNF as pt does not have enough assist at home M7 PT-IP Assessment and Plan Start: 08/20/21 14:57 Freq: NEEDED Status: Active Protocol: Document 08/23/21 14:30 KS (Rec: 08/23/21 15:23 KS [id number]) PT Summary Assessment and Plan Potential Rehabilitation Potential Fair Status of Condition at Evaluation Evolving Summary Impairments Pain,ROM,Strength,Balance, Coordination,Sensation,Tone, Cognition,Bed Mobility, Transfers,Gait,Activity Tolerance Progress Towards Goals Progressing Toward Goals,Slow Progress due to Pain,Slow Progress due to Activity Tolerance Assessment Summary Pt remains limited in her mobility and her friend will be unable to provide necessary assist at home. Min to Mod for bed mobility, Mod for sit< >stand and Min for ambulation w/ FWW. Pt only able to tolerate 8 ft ambulation, but has 40 ft walk from car to door of house that she is currently not strong enough or saf enough to complete due to inability to dorsiflex when ambulating and sliding toes to advance RLE increasing risk of fall. She will require SNF to improvr strength and functional mobility independence. Goals Bed Mobility Goal Standby Assistance Transfer Goal Standby Assistance,Front Wheeled Walker Gait Goal Standby Assistance,Front Wheel Walker Gait Distance 100 Other Goals up/down 1 step using FWW Days to Meet Goals 5 Frequency of Treatment Frequency Of Treatment Twice a Day Treatment Plan Physical Therapy Treatment Plan Bed Mobility Training,Transfer Training,Gait Training, Therapeutic Exercise,Balance Retraining,Post Op Education, Discharge Planning,Hot or Cold Pack,Neuromuscular Re-ed, Coordination Retraining,Manual Therapy Other Recommendations and Next Treatment post op ex, check vitals, bed Focus mob, transfers, gait if able. 1 PF step mgt required to return home. CGT 08/22 at 1030 with friend. Weight Bearing Status Weight Bearing Status Weight Bear as Tolerated Allowed Weight Bearing Amount (enter % RLE WBAT or #) (%) Recommendations To Nursing Amount of Assist Needed 1 Person Assist Discharge Recommendations PT Discharge Recommendations Home with 05/01 Assist Available,Home Health,SNF Rehab,Home vs SNF Equipment Needed for Home Before pt has personal FWW in room. Discharge Transportation Needs at Discharge Private Vehicle,Wheelchair/ Cabulance
[2021-08-23 15:21] VITALS: BP 117/51; PULSE 81; RESP 14; TEMP 37.1; O2SAT 97
--- NOTE | 2021-08-23 16:49 | CM.DPC ---
DCP Continued: CM spoke with OLGA LIDIA COOPER and she wants the patient to go to SNF and the patient is now agreeing to SNF placement at [facility]. CM needs to get vaccination record from the patient so CM can give this to November at [facility] and Cm will talk with Utilization Review Nurse to check and see if the patient can be made into an INPT so the patient can go to SNF under her straight medicare and not under Covid waiver. CM will continue to work on a safe DC plan. Gabrielle Burdick RNsenior automation engineer
[2021-08-23 20:00] VITALS: BP 104/57; PULSE 70; RESP 16; TEMP 36.4; O2SAT 93
[2021-08-23] MEDS: PANTOPRAZOLE DR 20 MG TABLET PO (20:58)
[2021-08-24 06:00] VITALS: BP 102/62; PULSE 79; RESP 16; TEMP 36.4; O2SAT 94
[2021-08-24] MEDS: OXYCODONE IR 5 MG TABLET PO (06:44)
--- NOTE | 2021-08-24 08:59 | P.DS_ITS ---
History of Present Illness History of Present Illness Date Patient Seen: 08/24/21 Time Patient Seen: 08:59 Chief complaint: R TKA *OPB* Narrative: Operative Date/Time/Diagnoses Date of procedure: 08/20/21 Time of procedure: 08:00 Pre-op diagnosis: Right knee osteoarthritis, right knee lipoma Post-op diagnosis: same Procedure & Clinicians Procedure: Right total knee arthroplasty, right knee excision of lipoma soft tissue mass Same procedure as scheduled: Yes Indications: The patient has had progressively worsening right knee pain with radiographic changes consistent with arthritis. Non-operative management has failed and the patient has requested total knee replacement. The risks, benefits and alternatives to surgery were discussed with the patient prior to proceeding. Risks discussed included, but were not limited to, failure to relieve pain, stiffness, infection, nerve damage, deep venous thrombosis, pulmonary embolism, stroke, coma, heart attack, permanent paralysis and , as well as the potential need for eventual revision of the prosthetic.? She also has a large soft tissue mass on the medial aspect of her leg which was worked up with an MRI scan and showed evidence of a lipoma. Surgeon: Melvi Burdick Sales Support Coordinator: Josephine Fung Anesthesia Type: General and Spinal Operative Notes Findings: Severe right knee osteoarthritis especially in the lateral compartment, fairly large medial soft tissue mass consistent with a lipoma, slightly grayish marginally perfused fatty tissue Closure Type: primary Specimen(s): none sent Prosthetic devices, grafts, tissues, transplants, or devices: [place] [employer] 2 size 7 femur, size 5 tibia, 10 mm poly, 35 x 9 mm patella Applied: drain(s) Estimated Blood Loss (mL): 300 Blood products transfused: none Tourniquet time (min): 89 Discharge Providers Provider Date of admission: 08/20/2021 Discharge Date: 08/24/21 Primary care physician: Stephen Thomas MD Consults: 08/20/21 06:00 Consult to Anesthesiology Routine Comment: Consulting Provider: Anesthesiologist Reason for consultation: Regional block for post operative pain control 08/20/21 12:19 Consult to Discharge Planning Routine Comment: Consult to Physical Therapy Evaluate & Treat Comment: Physician Instructions: postop TKA protocol Consult to Respiratory Therapy Evaluate & Treat Comment: Physician Instructions: Evaluate and treat 08/21/21 13:55 Consult to Home Health Routine Comment: Reason For Exam: Home Health RN, P.T, O.T, bath aide. Discharge provider: Josephine Fung PA-C Summary Hospital Course Discharge Diagnosis: s/p R TKA Hospital Course: Ms Parsons's hospital course was remarkable for poor pain control and difficulty progressing with physical therapy. She was eventually taken off muscle relaxant medications to alleviate her drowsiness and was given long-acting opioid medication. On POD# 4, she wanted to go home but was felt by PT to be more appropriate for SNF for further rehab. Exam Vital Signs (past 8 hours): - 03/22 06:00 Temperature 97.5 F L Pulse Rate 79 Respiratory Rate 16 Blood Pressure 102/62 Pulse Oximetry 94 Oxygen Delivery Method BiPAP Oxygen Flow Rate 0 Narrative Exam Narrative: 4/5 quadriceps, 5/5 hamstrings, DF, PF, EHL on right. 5/5 throughout LLE. Sensation to light touch intact throughout BLE. Calves soft, compresible, nontender and without palpable cords or masses. Const General: cooperative Orientation: alert, awake and oriented x3 Objective Labs Result Diagrams: 03 04:55 [facility] Medical History Cervical cancer (~1991) Chronic anemia DDD (degenerative disc disease) Depression Dry skin Easy bruisability Esophageal spasm Fatty liver Fibromyalgia Guillain-Washington syndrome (~1995) Hearing impaired Macular degeneration of both eyes Morbid (severe) obesity due to excess calories JL on CPAP Paroxysmal A-fib RLS (restless legs syndrome) Sepsis (~2017) Surgical History History of bladder surgery History of hysterectomy History of surgery Hx of abdominoplasty Hx of appendectomy (~1991) Hx of arthroscopy of right knee Hx of bariatric surgery (~1991) Hx of cholecystectomy (~1991) Social History household members: none Smoking Status: Never smoker alcohol intake: current Discharge Assessment & Plan Assessment and Plan Assessment: POD# 4 s/p right total knee arthroplasty and excision of lipoma on right knee. Plan of Treatment: 1) Pain control with long- and short-acting narcotics. 2) Pt on Eliquis prior to surgery for paroxysmal a fib; this will be adequate for VTE prophylaxis. 3) D/C to SNF for continued PT. Discharge Plan Discharge Plan Patient Disposition: SNF Transfer to: [facility] Transportation: Facility vehicle I certify the postop hospital custodial care is medically necessary on a continuing basis for any conditions for which he/ she received care during this hospitalization.: Yes The receiving facility has agreed to accept transfer and provide medical treatment.: Yes Discharge orders & Medications Prescriptions: New acetaminophen 325 mg Tablet 650 mg PO TID PRN (Reason: fever or pain) Qty: 90 2RF docusate sodium 100 mg Capsule 100 mg PO BID PRN (Reason: constipation) Qty: 60 2RF oxycodone 5 mg Tablet 5 mg PO Q4H PRN (Reason: Pain, Moderate (4-6)) Qty: 60 0RF oxycodone [OxyContin] 10 mg Tablet,Oral Only,Ext.Rel.12 Hr 10 mg PO BID Qty: 10 0RF Continued bupropion HCl 150 mg Tablet Sustained-Release 12 Hr 150 mg PO BID 0RF alendronate 70 mg Tablet 70 mg PO QWEEK 0RF Label Comments: Takes on Sundays escitalopram oxalate 20 mg Tablet 20 mg PO DAILY 0RF Cardizem LA 120 mg Tablet Extended Release 24 Hr 120 mg PO QAM 0RF omeprazole 20 mg Tablet,Delayed Release (Dr/Ec) 20 mg PO BID 0RF Eliquis 5 mg Tablet 5 mg PO BID 0RF PreserVision AREDS-2 250-90-40-1 mg Capsule 1 tab PO BID 0RF Follow up/Referrals: Stephen Thomas MD [Primary Care Provider] - Melvi Burdick MD [Physician] - As previously scheduled (Follow up with Dr Burdick on 09/04/2021 @ 2:00 pm at [email or web address].) Diet/Activity/Treatments Diet: Diet as Tolerated Activity: WBAT RLE. Walk frequently! Cold/Heat Therapy: Ice as needed to right knee for pain. Skin/Wound/Dressing Care Report to your healthcare provider any signs of infection, such as:: chills, fever, night sweats, increased pain, unusual drainage and unusual redness Dressing: Keep dressing on until follow up with Dr Burdick. When battery expires in a few days, it will beep, and you can cut the battery pack off and leave everything else on. You may shower with the dressing on; call the office if it becomes wet inside. No bathing or otherwise soaking incision. [facility] Rehab type: Physical therapy Visit Report/Discharge Packet Instructions: DI for Knee Replacement, DI for Prescription Opioid Use Stand Alone Forms: Surgery Discharge Discharge Data Primary Care Provider: Stephen Thomas Attending Provider: Melvi Burdick
[2021-08-24] MEDS: ACETAMINOPHEN 325 MG TABLET 650 MG PO ×3 (09:08→21:24)
[2021-08-24] MEDS: OXYCODONE ER 10 MG TAB PO ×2 (09:08→21:25)
[2021-08-24] MEDS: APIXABAN 5 MG TABLET PO ×2 (09:10→21:24)
[2021-08-24] MEDS: DOCUSATE 100 MG CAPSULE PO ×2 (09:10→21:24)
[2021-08-24] MEDS: buPROPion SR 150 MG TAB PO ×2 (09:10→21:24)
[2021-08-24] MEDS: VIT C/E/ZN/COPPR/LUTEIN/ZEAXAN CAPSULE 1 CAP PO ×2 (09:11→21:24)
[2021-08-24] MEDS: ESCITALOPRAM 10 MG TABLET 20 MG PO (09:11)
[2021-08-24] MEDS: KETOROLAC 30 MG/ML VIAL 15 MG IV ×2 (09:13→17:47)
[2021-08-24] MEDS: OXYCODONE IR 10 MG TABLET PO (11:07)
--- NOTE | 2021-08-24 11:54 | PT.IPTN ---
Current Diagnoses Benign lipomatous neoplasm of skin and subcutaneous tissue of right leg (08/21/21) Morbid (severe) obesity due to excess calories (08/21/21) Unilateral primary osteoarthritis, right knee (08/21/21) Presence of right artificial knee joint (08/21/21) Surgery Performed Operation Date: 08/20/21 07:45 Actual Procedures p Total Knee Arthroplasty, lipoma excision right knee(Right) - Melvi Burdick MD Physical Therapy Treatment Note M2 PT-IP Current Condition Start: 08/20/21 14:57 Freq: NEEDED Status: Active Protocol: Document 08/21/21 16:20 SP (Rec: 08/21/21 18:56 SP [id number]) Physical Therapy Current Condition Current Condition Evaluation Date 08/20/21 Treatment Diagnosis s/p R TKA; difficulty in walking Onset Date 08/20/21 M3 PT-IP Subjective Start: 08/20/21 14:57 Freq: NEEDED Status: Active Protocol: Document 08/24/21 11:30 KS (Rec: 08/24/21 12:46 KS [id number]) Subjective Physical Therapy Visit Type Type Treatment Note Visit Start Time 11:30 Visit Stop Time 11:54 Total Visit Minutes 24 Number of PRINT PRODUCER Visits 6 Physical Therapy Visit Comments Patient Comments Pt willing to work with therapy Therapy Pain Assessment Pain When Pain Assessed After Treatment Pain Present Pain Present Pain Reported Location Right Knee Intensity 7 Scale Used Numeric (0 - 10) M4 PT-IP Mobility and Gait Start: 08/20/21 14:57 Freq: NEEDED Status: Active Protocol: Document 08/24/21 11:30 KS (Rec: 08/24/21 12:46 KS [id number]) PT-Bed Mobility Assessment Supine to Sit Supine to Sit Contact Guard Assistance,1 Person Assistance,Head of Bed Elevated Scooting Scooting to Edge of Bed Contact Guard Assistance PT-Transfer Assessment Sit to and From Stand Sit to and from Stand Contact Guard Assistance,1 Person Assistance,Use of Upper Extremities Equipment Transfer Assistive Device Gait Belt,Front Wheeled Walker Orthotic/Prosthetic Devices or Brace: No Transfers Transfer Destination Chair Transfer Technique Pt ambulated w/ FWW Transfer Ability Level of Assist Contact Guard Assistance, Minimal Assistance,1 Person Assistance,Use of Upper Extremities Comments Mobility Comments Pt in bed upon arrival, CGA for sup<>Sit and scooting EOB as well as sit<>Stand w/ FWW. Pt then ambulated ~30 ft around room w/ FWW CGA. She then took seated rest break in chair prior to completing platform steps x2 w/ FWW and CGA to Min A w/ cues for sequencing. Pt had very slight R knee buckle prior to bro step but no LOB. She returned to chair CGA and left in chair w/ all needs in reach. Gait Assessment Gait Gait Assistance Required: Contact Guard Assist,1 Person Assist Distance (Feet) 30 Able to Maintain Weight Bearing Status Yes During Gait Assistive Devices Assistive Device Gait Belt,Front Wheeled Walker Orthotic/Prosthetic Devices or Brace: No Gait Deviations General Gait Pattern Antalgic,Decreased Stride Length,Decreased Feet Clearance,Step-to Gait Factors Limiting Gait Function Factors Limiting Gait Function Decreased Activity Tolerance, Decreased Sensation,Decreased Strength,Limited Range of Motion,Pain,Poor Balance,Poor Safety Awareness,Respiratory Distress Comments Gait Comments CGA for 30 ft ambulation w/ cues for increased foot clearance, able to improve slightly w/ cues but ultimately still lacking foot clearance. Stair Climbing Assessment Evaluation Level of Assist On Stairs Contact Guard Assistance, Minimal Assistance,1 Person Assistance Devices Stair Climbing Assistive Devices Front Wheel Walker Technique/Endurance Stair Climbing Direction Ascend and Descend Stair Climbing Technique Step to Step Number of Steps Climbed 1 Stair Climbing Set # Repetitions (reps) 2 Comments Stair Climbing Comments Pt able to ascend/descend 1 platform steps x2 w/ CGA to Min A and cues for step sequencing. Pt fatigued following. PT-Balance Assessment Sitting Balance and Reactions Static Sitting Balance Ability Good Dynamic Sitting Balance Ability Fair Standing Balance and Reactions Static Standing Balance Ability Fair Dynamic Standing Balance Ability Fair Device Used FWW M5 PT-IP Objective Assessments Start: 08/20/21 14:57 Freq: NEEDED Status: Active Protocol: Document 08/20/21 13:45 AB (Rec: 08/20/21 15:10 AB [id number]) Orientation Orientation/Cognition Level of Alertness Lethargic Orientation Name Safety Awareness Decreased Safety Awareness Memory Description Short Term Impaired Gross Range of Motion Lower Extremity ROM Assessment Right Impaired Impairments pain limiting R knee movement Strength Lower Extremity Strength Assessment Right Impaired Hip 2-/5 Knee 2-/5 Muscle Tone Muscle Tone WNL Yes M6 PT-IP Treatment Start: 08/20/21 14:57 Freq: NEEDED Status: Active Protocol: Document 08/24/21 11:30 KS (Rec: 08/24/21 12:46 KS [id number]) Physical Therapy Treatment Education Education Provided Safety M7 PT-IP Assessment and Plan Start: 08/20/21 14:57 Freq: NEEDED Status: Active Protocol: Document 08/24/21 11:30 KS (Rec: 08/24/21 12:46 KS [id number]) PT Summary Assessment and Plan Potential Rehabilitation Potential Fair Status of Condition at Evaluation Evolving Summary Impairments Pain,ROM,Strength,Balance, Coordination,Sensation,Tone, Cognition,Bed Mobility, Transfers,Gait,Activity Tolerance Progress Towards Goals Progressing Toward Goals,Slow Progress due to Pain,Slow Progress due to Activity Tolerance Assessment Summary Pt continues to make progress w/ mobility and activity tolerance.CGA for bed mobility , transfers, and ambulation today, CGA to Min A for platform steps. Pt ambulated 30 ft w/ FWW ad ascended/ descended platform step twice w/ cues for sequencing. She will ebenfit from SNF to improve strength and functional independence as she does not have assist at home. Goals Bed Mobility Goal Standby Assistance Transfer Goal Standby Assistance,Front Wheeled Walker Gait Goal Standby Assistance,Front Wheel Walker Gait Distance 100 Other Goals up/down 1 step using FWW Days to Meet Goals 5 Frequency of Treatment Frequency Of Treatment Twice a Day Treatment Plan Physical Therapy Treatment Plan Bed Mobility Training,Transfer Training,Gait Training, Therapeutic Exercise,Balance Retraining,Post Op Education, Discharge Planning,Hot or Cold Pack,Neuromuscular Re-ed, Coordination Retraining,Manual Therapy Weight Bearing Status Weight Bearing Status Weight Bear as Tolerated Allowed Weight Bearing Amount (enter % RLE WBAT or #) (%) Recommendations To Nursing Amount of Assist Needed 1 Person Assist Discharge Recommendations PT Discharge Recommendations Home with 05/01 Assist Available,Home Health,SNF Rehab,Home vs SNF Equipment Needed for Home Before pt has personal FWW in room. Discharge Transportation Needs at Discharge Private Vehicle,Wheelchair/ Cabulance
--- NOTE | 2021-08-24 14:19 | CM.DPC ---
DCP continued: CM met with the patient and her friend at the bedside patient is not covid vaccinated. Patients friend would the patient to go to a SNF. PT state patient is able to go home with 1 person assist or to SNF. DARYN Spoke with UR Nurse who stated meets for INPT for pain control. DARYN is working on locating an accepting SNF, [facility] cannot accept the patient because she is not vaccinated. Daryn sent clinicals to [facility] and [facility] which are the facilities that accept patients who are not vaccinated.... not wanting to go any farther south or to [place].. Patient friend really insistent that the patient not go home but according to PT could go home with HH. CM let the patient and friend know the challenge with locating a SNF that will accept a patient that is unvaccinated at this time however CM is working on locating a facility but to be prepared for home with HH plan. Daryn will continue to work on DC plan. Gabrielle Burdick RNhospitality house supervisor
--- NOTE | 2021-08-24 15:31 | PT.IPTN ---
Current Diagnoses Benign lipomatous neoplasm of skin and subcutaneous tissue of right leg (08/21/21) Morbid (severe) obesity due to excess calories (08/21/21) Unilateral primary osteoarthritis, right knee (08/21/21) Presence of right artificial knee joint (08/21/21) Surgery Performed Operation Date: 08/20/21 07:45 Actual Procedures p Total Knee Arthroplasty, lipoma excision right knee(Right) - Melvi Burdick MD Physical Therapy Treatment Note M2 PT-IP Current Condition Start: 08/20/21 14:57 Freq: NEEDED Status: Active Protocol: Document 08/21/21 16:20 SP (Rec: 08/21/21 18:56 SP [id number]) Physical Therapy Current Condition Current Condition Evaluation Date 08/20/21 Treatment Diagnosis s/p R TKA; difficulty in walking Onset Date 08/20/21 M3 PT-IP Subjective Start: 08/20/21 14:57 Freq: NEEDED Status: Active Protocol: Document 08/24/21 15:04 KS (Rec: 08/24/21 16:33 KS [id number]) Subjective Physical Therapy Visit Type Type Treatment Note Visit Start Time 15:04 Visit Stop Time 15:31 Total Visit Minutes 27 Notes Friend present for initiation of caregiver training. Number of WOOD SCIENCE PROFESSOR Visits 7 Physical Therapy Visit Comments Patient Comments Pt willing to work with therapy Therapy Pain Assessment Pain When Pain Assessed After Treatment Pain Present Pain Present Pain Reported M4 PT-IP Mobility and Gait Start: 08/20/21 14:57 Freq: NEEDED Status: Active Protocol: Document 08/24/21 15:04 KS (Rec: 08/24/21 16:33 KS [id number]) PT-Bed Mobility Assessment Supine to Sit Supine to Sit Standby Assistance,Head of Bed Elevated,Bedrails Sit to Supine Sit to Supine Standby Assistance,1 Person Assistance Scooting Scooting to Edge of Bed Standby Assistance PT-Transfer Assessment Sit to and From Stand Sit to and from Stand Standby Assistance,1 Person Assistance,Use of Upper Extremities Equipment Transfer Assistive Device Gait Belt,Front Wheeled Walker Orthotic/Prosthetic Devices or Brace: No Transfers Transfer Destination Bed Transfer Technique Pt ambulated w/ FWW Transfer Ability Level of Assist Standby Assistance,Contact Guard Assistance,1 Person Assistance,Use of Upper Extremities Comments Mobility Comments Pt in bed and friend in room upon arrival. Pts friend concerned about pt potentially going home. Initiated caregiver training, Pt SBA for sup<>Sit and scooting EOB, pts friend applied gait belt w / cues. Pt sit<>Stand w/ FWW SBA w/ friend stabilizing FWW. Friend only able to assist from R side of pt due to severed muscle in her R arm. PT ambulated ~60 ft around room w/ FWW CGA provided by her friend w/ cues for quad activation and elevation of toes w/ heel toe walking on R. Pt ambulated slowly and cautiously, but w/o LOB or knee buckling. Pt returned to bed and able to elevate BLE into bed SBA. Enocuraged pt to continue performing LE exercises in bed. Gait Assessment Gait Gait Assistance Required: Contact Guard Assist,1 Person Assist Distance (Feet) 60 Able to Maintain Weight Bearing Status Yes During Gait Assistive Devices Assistive Device Gait Belt,Front Wheeled Walker Orthotic/Prosthetic Devices or Brace: No Gait Deviations General Gait Pattern Antalgic,Decreased Stride Length,Decreased Feet Clearance,Step-to Gait Factors Limiting Gait Function Factors Limiting Gait Function Decreased Activity Tolerance, Decreased Sensation,Decreased Strength,Limited Range of Motion,Pain,Poor Balance,Poor Safety Awareness,Respiratory Distress Comments Gait Comments Please refer to mobility section for details. Stair Climbing Assessment Comments Stair Climbing Comments Not assessed, but will need to perform w/ caregiver prior to d/c. PT-Balance Assessment Sitting Balance and Reactions Static Sitting Balance Ability Good Dynamic Sitting Balance Ability Fair Standing Balance and Reactions Static Standing Balance Ability Fair Dynamic Standing Balance Ability Fair Device Used FWW M5 PT-IP Objective Assessments Start: 08/20/21 14:57 Freq: NEEDED Status: Active Protocol: Document 08/20/21 13:45 AB (Rec: 08/20/21 15:10 AB [id number]) Orientation Orientation/Cognition Level of Alertness Lethargic Orientation Name Safety Awareness Decreased Safety Awareness Memory Description Short Term Impaired Gross Range of Motion Lower Extremity ROM Assessment Right Impaired Impairments pain limiting R knee movement Strength Lower Extremity Strength Assessment Right Impaired Hip 2-/5 Knee 2-/5 Muscle Tone Muscle Tone WNL Yes M6 PT-IP Treatment Start: 08/20/21 14:57 Freq: NEEDED Status: Active Protocol: Document 08/24/21 15:04 KS (Rec: 08/24/21 16:33 KS [id number]) Physical Therapy Treatment Exercises Exercises Ankle Pumps Education Education Provided Safety Other Treatments Other Treatment Performed Initiated caregiver training w / pts friend who was able to provide appropriate assist and cues for bed mobility, transfers, and ambulation althought pt only needing SA to CGA at this time. Did not assess steps this PM. M7 PT-IP Assessment and Plan Start: 08/20/21 14:57 Freq: NEEDED Status: Active Protocol: Document 08/24/21 15:04 KS (Rec: 08/24/21 16:33 KS [id number]) PT Summary Assessment and Plan Potential Rehabilitation Potential Fair Status of Condition at Evaluation Evolving Summary Impairments Pain,ROM,Strength,Balance, Coordination,Sensation,Tone, Cognition,Bed Mobility, Transfers,Gait,Activity Tolerance Progress Towards Goals Progressing Toward Goals,Slow Progress due to Pain,Slow Progress due to Activity Tolerance Assessment Summary Pt showing progress w/ each visit and was SBA for bed mobility and sit<>Stand w/ FWW and CGA and cues for 60 ft ambulation w/ FWW. Pts friend was able to aplly gaitbelt and provide correct cues and assist w/ all tasks but will still need to complete fried assisting pt w/ 1 platform step to enter w/ FWW if going home. She will require incrased assist and HH. Goals Bed Mobility Goal Standby Assistance Transfer Goal Standby Assistance,Front Wheeled Walker Gait Goal Standby Assistance,Front Wheel Walker Gait Distance 100 Other Goals up/down 1 step using FWW Days to Meet Goals 5 Frequency of Treatment Frequency Of Treatment Twice a Day Treatment Plan Physical Therapy Treatment Plan Bed Mobility Training,Transfer Training,Gait Training, Therapeutic Exercise,Balance Retraining,Post Op Education, Discharge Planning,Hot or Cold Pack,Neuromuscular Re-ed, Coordination Retraining,Manual Therapy Weight Bearing Status Weight Bearing Status Weight Bear as Tolerated Allowed Weight Bearing Amount (enter % RLE WBAT or #) (%) Recommendations To Nursing Amount of Assist Needed 1 Person Assist Discharge Recommendations PT Discharge Recommendations Home with 05/01 Assist Available,Home Health,SNF Rehab,Home vs SNF Equipment Needed for Home Before pt has personal FWW in room. Discharge Transportation Needs at Discharge Private Vehicle,Wheelchair/ Cabulance
[2021-08-24 19:52] VITALS: BP 114/60; PULSE 85; RESP 16; TEMP 36.7; O2SAT 96
[2021-08-24] MEDS: CYCLOBENZAPRINE 10 MG TABLET PO (21:24)
[2021-08-24] MEDS: PANTOPRAZOLE DR 20 MG TABLET PO (21:24)
[2021-08-25] MEDS: KETOROLAC 30 MG/ML VIAL 15 MG IV ×3 (00:05→15:30)
[2021-08-25 05:45] VITALS: BP 96/62; PULSE 71; RESP 16; TEMP 36.2; O2SAT 98
[2021-08-25] MEDS: ALENDRONATE 70 MG TABLET PO (06:43)
[2021-08-25] MEDS: ACETAMINOPHEN 325 MG TABLET 650 MG PO ×3 (08:36→22:18)
[2021-08-25] MEDS: buPROPion SR 150 MG TAB PO ×2 (08:37→22:18)
[2021-08-25] MEDS: dilTIAZem CD 120 MG CAP PO (08:37)
[2021-08-25] MEDS: APIXABAN 5 MG TABLET PO ×2 (08:37→22:18)
[2021-08-25] MEDS: DOCUSATE 100 MG CAPSULE PO ×2 (08:40→22:18)
[2021-08-25] MEDS: VIT C/E/ZN/COPPR/LUTEIN/ZEAXAN CAPSULE 1 CAP PO ×2 (08:40→22:18)
[2021-08-25] MEDS: ESCITALOPRAM 10 MG TABLET 20 MG PO (08:40)
[2021-08-25] MEDS: OXYCODONE ER 10 MG TAB PO ×2 (08:40→22:18)
[2021-08-25 08:51] VITALS: BP 138/60; PULSE 84; RESP 18; TEMP 37.1; O2SAT 97
[2021-08-25] MEDS: SODIUM CHLORIDE 0.9% FLUSH 10 ML IV ×2 (10:41→22:19)
--- NOTE | 2021-08-25 10:49 | PM.PN.1 ---
Exam Vital Signs (past 8 hours): - 08/25/21 05:45 08/25/21 08:51 Temperature 97.2 F L 98.7 F Pulse Rate 71 84 Respiratory Rate 16 18 Blood Pressure 96/62 138/60 Pulse Oximetry 98 97 Oxygen Delivery Method BiPAP Oxygen Flow Rate 0 Objective Labs Result Diagrams: 08/21/21 04:55 PFS Medical History Cervical cancer (~1991) Chronic anemia DDD (degenerative disc disease) Depression Dry skin Easy bruisability Esophageal spasm Fatty liver Fibromyalgia Guillain-Peytona syndrome (~1995) Hearing impaired Macular degeneration of both eyes Morbid (severe) obesity due to excess calories JL on CPAP Paroxysmal A-fib RLS (restless legs syndrome) Sepsis (~2017) Surgical History History of bladder surgery History of hysterectomy History of surgery Hx of abdominoplasty Hx of appendectomy (~1991) Hx of arthroscopy of right knee Hx of bariatric surgery (~1991) Hx of cholecystectomy (~1991) Social History household members: none Smoking Status: Never smoker alcohol intake: current Assessment & Plan Assessment & Plan narrative: Patient is doing well post op #5 s/p TKA On exam, NVI and w/o s/s of DVT. Patient is cleared to be d/c'ed home with home health. F/u in 2 weeks for suture removal. Time Spent With Patient Critical Care time: I spent a total of [] minutes of critical care time on this patient's care today; this time is exclusive of procedural time.
--- NOTE | 2021-08-25 11:28 | PT.IPTN ---
Current Diagnoses Benign lipomatous neoplasm of skin and subcutaneous tissue of right leg (08/24/21) Morbid (severe) obesity due to excess calories (08/24/21) Unilateral primary osteoarthritis, right knee (08/24/21) Presence of right artificial knee joint (08/24/21) Surgery Performed Operation Date: 08/20/21 07:45 Actual Procedures p Total Knee Arthroplasty, lipoma excision right knee(Right) - Melvi Burdick MD Physical Therapy Treatment Note M2 PT-IP Current Condition Start: 08/20/21 14:57 Freq: NEEDED Status: Active Protocol: Document 08/21/21 16:20 SP (Rec: 08/21/21 18:56 SP [id number]) Physical Therapy Current Condition Current Condition Evaluation Date 08/20/21 Treatment Diagnosis s/p R TKA; difficulty in walking Onset Date 08/20/21 M3 PT-IP Subjective Start: 08/20/21 14:57 Freq: NEEDED Status: Active Protocol: Document 08/25/21 11:28 AW (Rec: 08/25/21 12:47 AW [id number]) Subjective Physical Therapy Visit Type Type Treatment Note Visit Start Time 11:04 Visit Stop Time 11:28 Total Visit Minutes 24 Number of SUPERVISOR MODERN LANGUAGES Visits 0 Physical Therapy Visit Comments Patient Comments Pt willing to work with therapy Therapy Pain Assessment Pain When Pain Assessed During Mobility Pain Present Pain Present Pain Reported Location Right Knee Intensity 9 Scale Used Numeric (0 - 10) Pain Management Techniques Apply Cold,Distraction, Modification of Treatment,Re- positioning,Timing of Activity with Medications M4 PT-IP Mobility and Gait Start: 08/20/21 14:57 Freq: NEEDED Status: Active Protocol: Document 08/25/21 11:28 AW (Rec: 08/25/21 12:47 AW [id number]) PT-Bed Mobility Assessment Supine to Sit Supine to Sit Standby Assistance,Head of Bed Elevated,Bedrails Scooting Scooting to Edge of Bed Standby Assistance PT-Transfer Assessment Sit to and From Stand Sit to and from Stand Standby Assistance,1 Person Assistance,Use of Upper Extremities Equipment Transfer Assistive Device Gait Belt,Front Wheeled Walker Orthotic/Prosthetic Devices or Brace: No Transfers Transfer Destination Chair Transfer Technique Pt ambulated w/ FWW Transfer Ability Level of Assist Standby Assistance,Contact Guard Assistance,1 Person Assistance,Use of Upper Extremities Comments Mobility Comments Pt was in bed as PT arrived. She completed supine to sit slowly but without assist. She stood SBA and used FWW to ambulate toward the hallway. She needed direction and min assist to ascend one step with FWW. RLE was notably less steady after step training and pt requested to sit down. She ambulated back to the chair with FWW CGA annd transferred SBA. She was left with call light and tray table in reach, fresh ice pack applied. Gait Assessment Gait Gait Assistance Required: Standby Assistance,Contact Guard Assist Distance (Feet) 40 Able to Maintain Weight Bearing Status Yes During Gait Assistive Devices Assistive Device Gait Belt,Front Wheeled Walker Orthotic/Prosthetic Devices or Brace: No Gait Deviations General Gait Pattern Antalgic,Decreased Stride Length,Decreased Feet Clearance,Step-to Gait Factors Limiting Gait Function Factors Limiting Gait Function Decreased Activity Tolerance, Decreased Sensation,Decreased Strength,Limited Range of Motion,Pain,Poor Balance,Poor Safety Awareness,Respiratory Distress Comments Gait Comments See mobility comments for details. Pt does tend to drag her right foot and responded poorly to cues for improved RLE elevation in swing phase. Stair Climbing Assessment Evaluation Level of Assist On Stairs Minimal Assistance,1 Person Assistance Devices Stair Climbing Assistive Devices Front Wheel Walker Technique/Endurance Stair Climbing Direction Ascend and Descend Stair Climbing Technique Step to Step Number of Steps Climbed 1 Stair Climbing Set # Repetitions (reps) 2 Comments Stair Climbing Comments Pt needs assist for platform step and will need to bring in a caregiver for additional training. PT-Balance Assessment Sitting Balance and Reactions Static Sitting Balance Ability Good Dynamic Sitting Balance Ability Fair Standing Balance and Reactions Static Standing Balance Ability Fair Dynamic Standing Balance Ability Fair Device Used FWW M5 PT-IP Objective Assessments Start: 08/20/21 14:57 Freq: NEEDED Status: Active Protocol: Document 08/20/21 13:45 AB (Rec: 08/20/21 15:10 AB [id number]) Orientation Orientation/Cognition Level of Alertness Lethargic Orientation Name Safety Awareness Decreased Safety Awareness Memory Description Short Term Impaired Gross Range of Motion Lower Extremity ROM Assessment Right Impaired Impairments pain limiting R knee movement Strength Lower Extremity Strength Assessment Right Impaired Hip 2-/5 Knee 2-/5 Muscle Tone Muscle Tone WNL Yes M6 PT-IP Treatment Start: 08/20/21 14:57 Freq: NEEDED Status: Active Protocol: Document 08/25/21 11:28 AW (Rec: 08/25/21 12:47 AW [id number]) Physical Therapy Treatment Education Education Provided Safety M7 PT-IP Assessment and Plan Start: 08/20/21 14:57 Freq: NEEDED Status: Active Protocol: Document 08/25/21 11:28 AW (Rec: 08/25/21 12:47 AW [id number]) PT Summary Assessment and Plan Potential Rehabilitation Potential Fair Status of Condition at Evaluation Evolving Summary Impairments Pain,ROM,Strength,Balance, Coordination,Sensation,Tone, Cognition,Bed Mobility, Transfers,Gait,Activity Tolerance Progress Towards Goals Progressing Toward Goals,Slow Progress due to Pain,Slow Progress due to Activity Tolerance Assessment Summary Pt's mobility improving slowly , needing only SBA/CGA for bed mobility and transfers today, min assist for platform step with FWW. Pt will need caregiver to come in for stair training prior to discharge. Goals Bed Mobility Goal Standby Assistance Transfer Goal Standby Assistance,Front Wheeled Walker Gait Goal Standby Assistance,Front Wheel Walker Gait Distance 100 Other Goals up/down 1 step using FWW Days to Meet Goals 5 Frequency of Treatment Frequency Of Treatment Twice a Day Treatment Plan Physical Therapy Treatment Plan Bed Mobility Training,Transfer Training,Gait Training, Therapeutic Exercise,Balance Retraining,Post Op Education, Discharge Planning,Hot or Cold Pack,Neuromuscular Re-ed, Coordination Retraining,Manual Therapy Weight Bearing Status Weight Bearing Status Weight Bear as Tolerated Allowed Weight Bearing Amount (enter % RLE WBAT or #) (%) Recommendations To Nursing Amount of Assist Needed 1 Person Assist Discharge Recommendations PT Discharge Recommendations Home with 05/01 Assist Available,Home Health,SNF Rehab,Home vs SNF Equipment Needed for Home Before pt has personal FWW in room. Discharge Transportation Needs at Discharge Private Vehicle,Wheelchair/ Cabulance
--- NOTE | 2021-08-25 11:49 | CM.DPC ---
Addendum entered by Elena Baird R.N. 08/25/21 15:02: Went ahead and called [facility] and [facility] and left a message in admissions regarding referral that was sent. Called Felicia back at [facility]. She stated, she most likely can accept, she just has to secure a room for unvaccinated individuals. She also has to run the insurance. She indicated that she will also need COVID waiver. Have the form here on the desk, will need to get ortho to sign tomorrow. PASSR already completed. Felicia has set u tentative time of steel pickler tomorrow for 10:30. Addendum entered by Elena Baird R.N. 08/25/21 13:07: Patient not feeling comfortable going home, has no one to assist her, and her friend is going back to [place], she was originally to be assisting her. Let her know that is may be challenging to get her into skilled facility, since she has improved with P.T. Let her know that for her go get into a skilled facility, she may need to pay privately. She stated, she could do this if needed. Asked her if she had planned on getting equipment several days ago when her friend/caregiver was here, since she had time to do so. She stated, they had looked on [employer], didn't have much luck. Was going to give her an IMM to consider appealing discharge, but do not have one as of yet, administration will be bringing one up. Called Felicia at [facility] and asked her if she has female beds for non-vaccinated. She indicated, she does, can't take today, but maybe tomorrow. Asked her about patient paying privately, and she indicate, to do this, Medicare or insurance needs to deny first. Let her know that this resource management planner originally sent this referral to Palak at [facility] who indicated after she ran her insurance through, Medicare A is Primary, and Blue Cross secondary. Also, let her know that she became inpatient on 08-24, would need to go on a COVID waiver, since it would not be three midnights. Updated patient. She stated, I thought you were originally looking for a retirement facility for me. She had stated, she didn't want to go to a facility originally. Let her know that referral was sent to [facility], and is being reviewed today, but it is unclear as to how long she will be authorized for. Felicia indicated that her insurance needs to deny her first before paying privately. P: DCP to continue to follow. Patient does not want to go home today, and she does not currently have an IMM as of yet. Will find out today if Felicia at [facility] can accept patient tomorrow. Elena Baird RN/Digital Marketing Executive Original Note: DCP Cont: Had conversation with patient, and brought in Kiley, bilingual case manager powdered metal supervisor. Let patient know that she should be able to go home today. Asked her what her preference was if she had a choice between skilled and home, and she stated, home. She has been cleared by P.t. for home. Patient concerned that she does not have her friend, or a bedside commode. She is ambulating with walker. Encouraged her to call someone else, if possible, to pick her up, or see if someone can stay with her, for patient has been here since Thu. Let her know that home health was ordered, and that this bilingual case manager will call agencies to see which one can see her the soonest. The original [facility] health ordered was [facility], for it was on the calendar last week. Called [facility], spoke to Dayana. She stated, they are about a week out. Called Kasey at [facility], and she indicated, they can't see her until Thursday. Called Satish at [facility], and he indicated, they should be able to see her in the next couple of days, they will have to look into her insurance. Faxed him over face sheet, orders, face to face, DC Summary and H&P including P.T. notes. Updated Dr. Woods, and he is discharging her today with home health. Reminded patient that she is stable medically for discharge. P: Patient is discharging home with [facility]. Patient will be working on transportation as well. Had discussion with her about this as well. Elena Baird RN/Digital Marketing Executive
--- NOTE | 2021-08-25 13:24 | PC.NURSE ---
Assumed care of pt at 0700. Pt sleeping in bed during bedside hand-off. Awakens to voice. Up to BSC. SBA w/ gait belt. Pt able to scoot herself to edge of bed, stand to FWW and lower down to BSC. D/C to home with home health ordered. Pt states she is unable to go home as she does have anyone to help her. Her friend that was arranged to help has become ill and returned to [place]. Pt stated she has no other friends or family that can help her. This technical report writer notified Care Management/Discharge planning see their documentation for d/c planning updates.
--- NOTE | 2021-08-25 14:47 | PT-IP ANOTE ---
Met with pt at 1435 for PM tx. Pt declined, stating she was too fatigued and painful. Advised pt that later time for PT could not be guaranteed due to staffing constraints. Pt continued to decline. Will follow up as staffing allows.
[2021-08-25] MEDS: OXYCODONE IR 10 MG TABLET PO (15:29)
[2021-08-25 16:27] LABS: COVID19 -Nasal RAPID Negative (Negative)
--- NOTE | 2021-08-25 16:28 | PT.IPTN ---
Current Diagnoses Benign lipomatous neoplasm of skin and subcutaneous tissue of right leg (08/24/21) Morbid (severe) obesity due to excess calories (08/24/21) Unilateral primary osteoarthritis, right knee (08/24/21) Presence of right artificial knee joint (08/24/21) Surgery Performed Operation Date: 08/20/21 07:45 Actual Procedures p Total Knee Arthroplasty, lipoma excision right knee(Right) - Melvi Burdick MD Physical Therapy Treatment Note M2 PT-IP Current Condition Start: 08/20/21 14:57 Freq: NEEDED Status: Active Protocol: Document 08/21/21 16:20 SP (Rec: 08/21/21 18:56 SP [id number]) Physical Therapy Current Condition Current Condition Evaluation Date 08/20/21 Treatment Diagnosis s/p R TKA; difficulty in walking Onset Date 08/20/21 M3 PT-IP Subjective Start: 08/20/21 14:57 Freq: NEEDED Status: Active Protocol: Document 08/25/21 16:28 AW (Rec: 08/25/21 16:44 AW [id number]) Subjective Physical Therapy Visit Type Type Treatment Note Visit Start Time 16:02 Visit Stop Time 16:28 Total Visit Minutes 26 Number of IP LITIGATION PARALEGAL Visits 0 Physical Therapy Visit Comments Patient Comments Pt willing to work with therapy Therapy Pain Assessment Pain When Pain Assessed During Mobility Pain Present Pain Present Pain Reported Location Right Knee Scale Used not quantified M4 PT-IP Mobility and Gait Start: 08/20/21 14:57 Freq: NEEDED Status: Active Protocol: Document 08/25/21 16:28 AW (Rec: 08/25/21 16:44 AW [id number]) PT-Bed Mobility Assessment Supine to Sit Supine to Sit Standby Assistance,Head of Bed Elevated,Bedrails Sit to Supine Sit to Supine Standby Assistance Scooting Scooting to Edge of Bed Standby Assistance PT-Transfer Assessment Sit to and From Stand Sit to and from Stand Standby Assistance,Use of Upper Extremities Equipment Transfer Assistive Device Gait Belt,Front Wheeled Walker Orthotic/Prosthetic Devices or Brace: No Transfers Transfer Destination Bed,Toilet Transfer Technique Pt ambulated w/ FWW Transfer Ability Level of Assist Standby Assistance,Contact Guard Assistance,1 Person Assistance,Use of Upper Extremities Comments Mobility Comments Pt was in bed as PT arrived. With HOB elevated, she completed supine to sit and stood with FWW SBA. She walked in the halls a total of 90 feet with FWW SBA/CGA. On return to the room she walked to the toilet, transferring SBA with use of grab bar. She needed no assist to manage briefs or for pericare. She stood and walked with FWW to the sink, washing her hands SBA. She returned to the bed, including elevating the right leg to the bed SBA. Pt was left with ice on the knee, call light and tray table in reach. Gait Assessment Gait Gait Assistance Required: Standby Assistance,Contact Guard Assist Distance (Feet) 90 Able to Maintain Weight Bearing Status Yes During Gait Assistive Devices Assistive Device Gait Belt,Front Wheeled Walker Orthotic/Prosthetic Devices or Brace: No Gait Deviations General Gait Pattern Antalgic,Decreased Stride Length,Decreased Feet Clearance,Step-to Gait Factors Limiting Gait Function Factors Limiting Gait Function Decreased Activity Tolerance, Decreased Sensation,Decreased Strength,Limited Range of Motion,Pain,Poor Balance,Poor Safety Awareness,Respiratory Distress Comments Gait Comments Pt responded well to cues for quad set in RLE stance phase after right knee buckling x 2. Right foot clearance increased but pt needed cues to flex the knee instead of hiking the hip. PT-Balance Assessment Sitting Balance and Reactions Static Sitting Balance Ability Good Dynamic Sitting Balance Ability Fair Standing Balance and Reactions Static Standing Balance Ability Fair Dynamic Standing Balance Ability Fair Device Used FWW M5 PT-IP Objective Assessments Start: 08/20/21 14:57 Freq: NEEDED Status: Active Protocol: Document 08/20/21 13:45 AB (Rec: 08/20/21 15:10 AB [id number]) Orientation Orientation/Cognition Level of Alertness Lethargic Orientation Name Safety Awareness Decreased Safety Awareness Memory Description Short Term Impaired Gross Range of Motion Lower Extremity ROM Assessment Right Impaired Impairments pain limiting R knee movement Strength Lower Extremity Strength Assessment Right Impaired Hip 2-/5 Knee 2-/5 Muscle Tone Muscle Tone WNL Yes M6 PT-IP Treatment Start: 08/20/21 14:57 Freq: NEEDED Status: Active Protocol: Document 08/25/21 16:28 AW (Rec: 08/25/21 16:44 AW [id number]) Physical Therapy Treatment Exercises Exercises Ankle Pumps,Quad Sets Education Education Provided Safety M7 PT-IP Assessment and Plan Start: 08/20/21 14:57 Freq: NEEDED Status: Active Protocol: Document 08/25/21 16:28 AW (Rec: 08/25/21 16:44 AW [id number]) PT Summary Assessment and Plan Potential Rehabilitation Potential Fair Status of Condition at Evaluation Evolving Summary Impairments Pain,ROM,Strength,Balance, Coordination,Sensation,Tone, Cognition,Bed Mobility, Transfers,Gait,Activity Tolerance Progress Towards Goals Progressing Toward Goals,Slow Progress due to Pain,Slow Progress due to Activity Tolerance Assessment Summary Pt increased gait distance and improved her gait quality. She no longer has a friend to stay with her at discharge and DCP is seeking SNF placement. Goals Bed Mobility Goal Standby Assistance Transfer Goal Standby Assistance,Front Wheeled Walker Gait Goal Standby Assistance,Front Wheel Walker Gait Distance 100 Other Goals up/down 1 step using FWW Days to Meet Goals 5 Frequency of Treatment Frequency Of Treatment Twice a Day Treatment Plan Physical Therapy Treatment Plan Bed Mobility Training,Transfer Training,Gait Training, Therapeutic Exercise,Balance Retraining,Post Op Education, Discharge Planning,Hot or Cold Pack,Neuromuscular Re-ed, Coordination Retraining,Manual Therapy Weight Bearing Status Weight Bearing Status Weight Bear as Tolerated Allowed Weight Bearing Amount (enter % RLE WBAT or #) (%) Recommendations To Nursing Amount of Assist Needed 1 Person Assist Discharge Recommendations PT Discharge Recommendations Home with 05/01 Assist Available,Home Health,SNF Rehab,Home vs SNF Equipment Needed for Home Before pt has personal FWW in room. Discharge Transportation Needs at Discharge Private Vehicle,Wheelchair/ Cabulance
[2021-08-25 17:00] VITALS: BP 99/54; PULSE 70; RESP 18; TEMP 36.9; O2SAT 93
[2021-08-25 20:00] VITALS: BP 106/52; PULSE 71; RESP 16; TEMP 36.6; O2SAT 97
[2021-08-25] MEDS: PANTOPRAZOLE DR 20 MG TABLET PO (22:18)
[2021-08-26 04:00] VITALS: BP 118/48; PULSE 77; RESP 18; TEMP 36.7; O2SAT 97
[2021-08-26 08:15] VITALS: O2SAT 96
--- NOTE | 2021-08-26 08:26 | CM.DPC ---
DCP Discharge SNF Per Ortho PA, pt remains medically stable to d/c today and wrote orders for SNF to [facility] and signed COVID waiver and signed med rec and printed scripts. NEFTALI Alexis kindly faxing d/c summ, orders, PASRR, med rec, scripts, updated COVID swab from yesterday. Per RN, pt wants to shower prior to leaving this morning and aware of the d/c timeframe. SW provided the RN report number and time of transport. SW spoke to [facility] admissions and confirmed they are accepting today and pt to transport around [id number] today. ROGELIO updated MICROBIOLOGY TECHNICIAN, field trainer and RN. Plan: Patient to d/c to [facility] today via facility van around [id number] prior to safe return home. RJ Tolbert
[2021-08-26 08:31] VITALS: BP 100/37; PULSE 90; RESP 18; TEMP 37; O2SAT 98
[2021-08-26] MEDS: OXYCODONE ER 10 MG TAB PO (08:49)
[2021-08-26] MEDS: buPROPion SR 150 MG TAB PO (08:50)
[2021-08-26] MEDS: ACETAMINOPHEN 325 MG TABLET 650 MG PO (08:50)
[2021-08-26] MEDS: ESCITALOPRAM 10 MG TABLET 20 MG PO (08:50)
[2021-08-26] MEDS: APIXABAN 5 MG TABLET PO (08:50)
[2021-08-26] MEDS: VIT C/E/ZN/COPPR/LUTEIN/ZEAXAN CAPSULE 1 CAP PO (08:50)
--- NOTE | 2021-08-26 09:52 | PC.NURSE ---
Assess- Patient is alert and oriented x3. She has a julian dressing to her r.knee that is cdi with motor flashing green. Patient is a sba/1pa when she is up ambulating to the bathroom. She is also using a walker. CMS wnl and ppx2. Patient is in the shower now as she is discharging to [facility].
--- NOTE | 2021-08-26 11:05 | PT-IP ANOTE ---
Checked on pt at 1105. She had showered and was awaiting transport to SNF. Pt was allowed to rest for transfer and possible evaluation at SNF later today.
== END 2021-08-26 12:25 | DRG 554 ==
LOC: OR 16:04 → AC 16:04
PROVIDERS: Admitting Provider Orthopaedic Surgery; PCP Internal Medicine; Referring Provider Orthopaedic Surgery; Visit Provider Orthopaedic Surgery
PROC: 0SRC0JZ Replacement of Right Knee Joint with Synthetic Substitute, Open Approach (ICD-10-PCS; CPT 27447; principal; 2021-08-20 07:45)
DX: M17.11 Unilateral primary osteoarthritis, right knee (principal); Z68.41 Body mass index [BMI] 40.0-44.9, adult; D17.23 Benign lipomatous neoplasm of skin and subcutaneous tissue of right leg; I48.0 Paroxysmal atrial fibrillation; F32.A Depression, unspecified; I10 Essential (primary) hypertension; G47.33 Obstructive sleep apnea (adult) (pediatric); K21.9 Gastro-esophageal reflux disease without esophagitis; E66.01 Morbid (severe) obesity due to excess calories; Z20.822 Contact with and (suspected) exposure to COVID-19; Z79.01 Long term (current) use of anticoagulants
CPT/HCPCS: 36415; 73560; 85014; 85018; 87635; 97116; 97162; 97530; C1776; C9803; G0378; C1713; C9290; J0171; J0690; J1170; J1885; J2250; J2405; J2704; J3010

== ENCOUNTER → 2021-09-25 15:37 | Outpatient (CLI) | payer BC, SELFPAY ==
[2021-09-25 18:09] LABS: COVID19 -Nasal RAPID Negative (Negative)
== END ==
PROVIDERS: PCP Internal Medicine; Visit Provider Family Medicine Sleep Medicine
DX: Z20.822 Contact with and (suspected) exposure to COVID-19 (principal)
CPT/HCPCS: 87635; C9803

== ENCOUNTER 2021-09-27 08:51 | Day surgery (SDC) | payer BC, SELFPAY ==
[2021-09-26 09:41] VITALS: BMI 42.1
[2021-09-27] VITALS (15 sets, daily range): BP systolic 64–124; BP diastolic 25–81; PULSE 46–80; RESP 11–18; TEMP 36.8; O2SAT 93–99; BMI 42.1
--- NOTE | 2021-09-27 09:40 | PM.PREOP ---
Pre-operative Note COVID-19 COVID-19 status: Negative Interval Note History & Physical reviewed/Exam performed by Physician: Yes Changes to H&P: No
[2021-09-27] MEDS: CEFAZOLIN 2 GM/20 ML SYRINGE IV (11:48)
--- NOTE | 2021-09-27 11:59 | SUR.OPER ---
Supine on padded OR bed, on airway ramp. Head supported with pillow, arms secured on padded arm boards with blankets at <90 degrees abduction, legs uncrossed, safety belt on abdomen, tape over blanket over non-operative leg. Pillow under BLE.
[2021-09-27] MEDS: BUPIVACAINE 0.25% (PF) 30 ML, EPINEPHrine 0.15 MG INJ (12:00)
[2021-09-27] MEDS: VANCOMYCIN 1,000 MG VIAL 1000 MG TOP (12:15)
--- NOTE | 2021-09-27 12:23 | SUR.OPER ---
Right knee tissue sent for culture, aerobic and culture, anaerobic with gram stain.
--- NOTE | 2021-09-27 13:01 | P.OP_ITS ---
Operative Date/Time/Diagnoses Date of procedure: 09/27/21 Time of procedure: 11:45 Pre-op diagnosis: Status post right total knee arthroplasty Incisional wound dehiscence Post-op diagnosis: same Procedure & Clinicians Procedure: Incision and drainage postoperative wound dehiscence right knee CPT code 51571 Wound closure right knee CPT code 75256 Same procedure as scheduled: Yes Indications: Patient is a 70-year-old female status post right knee arthroplasty on 08/20/[address] Burdick. She had excessive soft tissues and was noted to have delayed healing at the central portion of her incision. Her wound closure devices were kept in place longer and this area of blistered. She now presents to clinic with a full-thickness skin wound at the central aspect of her total knee incision. The remainder of the incision is well healed. She has a local erythema around the open wound and exposed subcutaneous fat. She is able to flex and extend the knee and has been full weight-bearing. She is indicated for operative excision of the wound and necrotic fat debridement and wound closure. We discussed if the wound goes deeper or violate the capsule she would require addressing the joint foot appears to be superficial at this time. With full- thickness tissue. Dr. Burdick is out of town so I will take care of this this week. Risks and benefits of the procedure have been discussed with the patient even opportunity to ask questions. The risks of surgery include but are not limited to infection, malunion, nonunion, persistence of pain, damage to nerves and blood vessels, posttraumatic arthritis, DVT, PE, cardiopulmonary complications and . The patient expressed a thorough understanding of the risks and benefits of surgery and has elected to proceed. Consent was signed in the office. Surgeon: Dinora Roland Click Yes if Unassisted: Yes Anesthesia Type: General and Local Operative Notes Findings: Full-thickness wound central TKA incision approximately 2 x 2 cm round this was a Edge sized out there was necrotic fat no gross purulence. The retinaculum was intact. There was an area of necrotic fat demonstrating a void medially from the incision overlying the patella. This was debrided thoroughly and then closed primarily with vancomycin powder. Closure Type: primary Specimen(s): other (Tissue for culture) Estimated Blood Loss (mL): 10 Blood products transfused: none Tourniquet time (min): 24 Procedure in detail: Patient was seen in the preoperative area the site of surgery marked informed consent confirmed. She was brought back to the operating room and placed supine on operative table. General anesthesia was administered. Right lower extremities prepped and draped in the standard sterile fashion. Formal time-out procedure was performed confirming the patient's side and site of surgery administration of appropriate preoperative antibiotic. All were in agreement. Attention turned to the right lower extremity gravity exsanguination was used and the tourniquet was elevated to 250 mmHg and stayed elevator 24 minutes. Was turned to the right knee this is placed over a bump. There is approximately 2 x 2 cm circular open wound at the midline of the a incision and there was exposed subcutaneous fat with some fat necrosis and surrounding induration. The incision line was drawn on the knee this ellipsed sized the wound. This was carried down through the skin subcutaneous tissue excising the wound. Underneath there was some necrotic fat that was debrided with a rongeur and sharp knife. There was additional and necrotic fat just tracking medially from with a subcutaneously. This was debrided. The retinaculum was noted to be intact. Then a pulsatile lavage with 3 L of saline was used to thoroughly irrigate the wound additional curetting on the soft tissues to make sure these were bleeding well and removed any nonviable tissue. The tissue was sent for culture. Once this was completed drapes and gloves were changed. Vancomycin powder was placed into the wound this was closed with 2-0 PDS subcutaneously and 3-0 and 2-0 nylon in the skin. Tourniquet was released hemostasis was achieved. Local anesthetic was infiltrated for postoperative pain control. Aquacel dressing was placed. Drapes removed. Patient was woken from anesthesia and taken to recovery room in good condition. There no immediate complications from this procedure. All counts were correct. Complications: none Post-operative Condition: stable Disposition: PACU Plan for aftercare: Weightbear as tolerated. Aquacel dressing keep in place. May shower no soaking of dressing. Reinforce as indicated. Take antibiotics as prescribed. Follow up in clinic in 2 weeks as scheduled
[2021-09-27] MEDS: ONDANSETRON 4 MG/2 ML INJ IV (13:06)
[2021-09-27] MEDS: HYDROMORPHONE 2 MG INJ IV (13:14)
--- NOTE | 2021-09-27 13:25 | SUR.PHASEI ---
Addendum entered by Emily Vargas R.N. 09/27/21 13:57: 1330-becoming more aware of surroundings. anxiety improving. reassured prn. ekg seen by Dr Antunez-normal. patient now requesting gi cocktail for indegestion/esophus reflux. Med given. symptoms clearing more. Second RN at bedside, Macario , to reassure/emotional support patient. 1349-vss. dressing rt knee remains cdi. no changes with csm rt foot/leg. to phase 2 with Macario SANODVAL. patient told Macario RN, she usually runs a low bp. Daughter to be called for emotional support. patient more alert/cognizant of surroundings. no further c/o knee pain. Original Note: 09/27/21- 1258-arouseable. sedate and c/o neck pain, and nausea. pale in color, bp checked and 64/33 and bradycardic at 48/sb. hob down,ivf bolused,vs changed to q 2.[address] Antunez made aware. bp rising to 103/65. hob elevated. iv slowed. 1322-c.o knee pain,medicated prior. now repeating nausea c/o and bp dropped again . hob lowered. ivf bolus again. c/o chest pain, then changed to esophageal. hx of reflux. Dr Antunez and Jesus aware. 12 lead ekg done. labs to be drawn.
[2021-09-27] MEDS: MAG HYDROX/ALUMINUM/SIMETH SUS 20 ML, LIDOCAINE VISCOUS 2% 15 ML PO (13:48)
[2021-09-27 13:58] LABS: Creatine Kinase 36 U/L (30-135)
[2021-09-27 14:10] LABS: Troponin I < 0.012 ng/mL (0.01-0.034)
--- NOTE | 2021-09-27 14:26 | PM.PN.1 ---
Exam Vital Signs (past 8 hours): - 09/27/21 09:32 09/27/21 12:45 09/27/21 12:53 Temperature 98.2 F 98.2 F Pulse Rate 80 67 50 L Respiratory Rate 16 11 L 11 L Blood Pressure 124/81 99/47 L 91/37 L Pulse Oximetry 99 93 93 09/27/21 12:58 09/27/21 13:01 09/27/21 13:05 Temperature Pulse Rate 46 L 48 L 59 L Respiratory Rate 12 18 14 Blood Pressure 64/33 L 71/32 L 96/50 L Pulse Oximetry 94 95 96 09/27/21 13:10 09/27/21 13:15 09/27/21 13:20 Temperature Pulse Rate 73 64 64 Respiratory Rate 14 12 14 Blood Pressure 103/55 L 100/50 L 81/25 L Pulse Oximetry 94 95 95 09/27/21 13:25 09/27/21 13:30 09/27/21 13:40 Temperature Pulse Rate 63 66 65 Respiratory Rate 16 14 14 Blood Pressure 74/40 L 96/48 L 102/51 L Pulse Oximetry 96 96 98 09/27/21 13:47 09/27/21 14:04 Temperature 98.2 F Pulse Rate 66 68 Respiratory Rate 14 18 Blood Pressure 96/51 L 100/60 Pulse Oximetry 95 98 Oxygen Delivery Method Room Air Oxygen Flow Rate 2 Narrative Exam Narrative: Called from OR for pt hypotension in PACU after I&D knee wound. I was unable to see pt at the time, but, per RN's, pt complained of chest pain and had a brief episode of SBP to the 70's. Pt was given a fluid bolus, 12-lead ECG (NSR, no ST or T wave abnormalities), and cardiac enzyme screen. Troponin was normal, CK normal. Pt requested GI cocktail, which has given her relief for similar symptoms of esophageal spasm in the past. She described the GI Cocktail as viscous lidocaine with maalox. She previously had bariatric surgery and has had occasional esophageal spasm since that surgery, and described her symptoms as being similar to previous episodes. She was administered the GI cocktail with resolution of symptoms, and VS have remained normal since. She is ready to go home and her daughter is at bedside. Objective Labs Labs: Laboratory Results - last 24 hr 09/27/21 13:47 Total Creatine Kinase 36 CK-MB (CK-2) TNP CK-MB (CK-2) Rel Index TNP Troponin I < 0.012 [facility] Medical History Cervical cancer (~1991) Chronic anemia DDD (degenerative disc disease) Depression Dry skin Easy bruisability Esophageal spasm Fatty liver Fibromyalgia Guillain-[place] syndrome (~1995) Hearing impaired Macular degeneration of both eyes Morbid (severe) obesity due to excess calories JL on CPAP Paroxysmal A-fib RLS (restless legs syndrome) Sepsis (~2017) Surgical History (Updated 09/26/21 @ 09:52 by Cari Noe RN) History of arthroplasty of right knee (08/20/21) History of bladder surgery History of hysterectomy History of surgery Hx of abdominoplasty Hx of appendectomy (~1991) Hx of arthroscopy of right knee Hx of bariatric surgery (~1991) Hx of cholecystectomy (~1991) Social History household members: none Smoking Status: Never smoker alcohol intake: current Assessment & Plan Assessment & Plan narrative: d/c home, regular post op care per surgical team. Time Spent With Patient Critical Care time: I spent a total of [] minutes of critical care time on this patient's care today; this time is exclusive of procedural time.
== END 2021-09-27 14:50 | disposition home or self-care (01) ==
PROVIDERS: PCP Internal Medicine; Referring Provider Orthopaedic Surgery Foot and Ankle Surgery; Visit Provider Orthopaedic Surgery Foot and Ankle Surgery
PROC: (CPT 13160; principal; 2021-09-27 10:15)
DX: B96.20 Unspecified Escherichia coli [E. coli] as the cause of diseases classified elsewhere (principal); T81.31XA Disruption of external operation (surgical) wound, not elsewhere classified, initial encounter; M17.0 Bilateral primary osteoarthritis of knee; I48.0 Paroxysmal atrial fibrillation; G47.33 Obstructive sleep apnea (adult) (pediatric); K21.9 Gastro-esophageal reflux disease without esophagitis; Z79.01 Long term (current) use of anticoagulants; Z96.651 Presence of right artificial knee joint; B96.89 Other specified bacterial agents as the cause of diseases classified elsewhere
CPT/HCPCS: 13160; 82550; 84484; 87070; 87075; 87077; 87186; 87205; 93005; J0171; J0690; J1100; J1170; J2250; J2405; J2704; J3010

== ENCOUNTER → 2022-02-06 06:50 | Outpatient (CLI) | payer BC, SELFPAY ==
[2022-02-06 09:10] LABS: Add Manual Diff / Slide Review NO; Basophils Absolute Auto 0 /uL (0-100); Basophils Percent Auto 0.3 % (0-2); Eosinophils Absolute Auto 100 /uL (0-450); Eosinophils Percent Auto 1.9 % (2-4); Hematocrit 36.1 % (36-46); Lymphocytes Absolute Auto 500 /uL (1100-4500); Lymphocytes Percent Auto 11.3 % (25-40); Mean Corpuscular HGB Conc 33.3 % (30-36); Mean Corpuscular Hemoglobin 29.2 PG (26-34); Mean Corpuscular Volume 87.8 fL (80-100); Monocytes Absolute Auto 300 /uL (0-900); Monocytes Percent Auto 7.8 % (3-14); Neutrophils Absolute Auto 3400 /uL (1500-7000); Neutrophils Percent Auto 78.7 % (50-75); Platelet Count 213 X10^3/uL (150-400); Red Blood Cell Count 4.11 X10^6/uL (4.0-5.2); Red Cell Distribution Width 16.8 % (11.6-14.8); White Blood Cell Count 4.3 X10^3/uL (4.5-11.0)
[2022-02-06 09:32] LABS: Vitamin D 25 Hydroxy (D3) 16.2 ng/mL (30.0-100.0)
[2022-02-06 09:39] LABS: Alanine Aminotransferase 11 IU/L (<35); Albumin 3.4 g/dL (3.5-5.0); Albumin Globulin Ratio 1.3 (1.0-2.8); Alkaline Phosphatase 78 U/L (38-126); Aspartate Aminotransferase 16 IU/L (14-36); BUN Creatinine Ratio 21.4 (6-22); Bilirubin Total 0.3 mg/dL (0.2-1.3); Blood Urea Nitrogen 18 mg/dL (7-17); Calcium 9.1 mg/dL (8.4-10.2); Carbon Dioxide 29 mmol/L (22-32); Chloride 106 mmol/L (98-107); Cholesterol 120 mg/dL (140-199); Estimated Glomerular Filt Rate > 60 mL/min (>60); Globulin 2.7 g/dL (1.7-4.1); Glucose 85 mg/dL (80-110); HDL Cholesterol 60 mg/dL (40-60); HEMOLYSIS < 15 (0-50); LDL Cholesterol Calculated 49 mg/dL (<100); Sodium 140 mmol/L (137-145); Total Protein 6.1 g/dL (6.3-8.2); Triglycerides 53 mg/dL (35-150)
[2022-02-06 09:43] LABS: Free T4, Direct Thyroxine 1.07 ng/dL (0.78-2.19)
[2022-02-06 09:57] LABS: Thyroid Stimulating Hormone 2.63 uIU/mL (0.47-4.68)
[2022-02-06 10:13] LABS: Ferritin 45 ng/mL (11-264)
[2022-02-06 10:44] LABS: Vitamin B12 196 pg/mL (239-931)
== END ==
PROVIDERS: PCP Internal Medicine; Referring Provider Naturopath; Visit Provider Naturopath
DX: Z00.00 Encounter for general adult medical examination without abnormal findings (principal); E55.9 Vitamin D deficiency, unspecified; Z98.84 Bariatric surgery status; E63.9 Nutritional deficiency, unspecified; R53.83 Other fatigue
CPT/HCPCS: 36415; 80053; 80061; 82306; 82607; 82728; 82746; 84439; 84443; 84481; 85025

== ENCOUNTER → 2022-05-14 16:31 | Outpatient (CLI) | payer BC, SELFPAY ==
--- NOTE | 2022-05-14 16:32 | DI.RAD.S_ITS ---
PROCEDURE: XR CHEST 2V INDICATIONS: Positive PPD test TECHNIQUE: 2 views of the chest were acquired. COMPARISON: None. FINDINGS: Surgical changes and devices: None. Lungs and pleura: Lungs are clear. No pleural effusions or pneumothorax. Mediastinum: Mediastinal contours are normal. Heart size is normal. Bones and chest wall: No suspicious bony abnormalities. Soft tissues appear unremarkable. IMPRESSION: No active pulmonary tuberculosis identified radiographically. Dictated by: Faheem Cooper RR Interpreted: Armando Marcelo MD on 05/14/2022 at 16:43 Transcribed by: HENRY on 05/14/2022 at 16:43 Approved by: Armando Marcelo M.D. on 05/14/2022 at 17:41
== END ==
PROVIDERS: PCP Internal Medicine; Referring Provider Nurse Practitioner Family; Visit Provider Nurse Practitioner Family
DX: R76.11 Nonspecific reaction to tuberculin skin test without active tuberculosis (principal); Z92.89 Personal history of other medical treatment
CPT/HCPCS: 71046

== ENCOUNTER → 2022-09-01 08:56 | Outpatient (CLI) | payer BC, SELFPAY ==
[2022-09-01 10:15] LABS: Alanine Aminotransferase 18 IU/L (<35); Albumin 3.7 g/dL (3.5-5.0); Albumin Globulin Ratio 1.3 (1.0-2.8); Alkaline Phosphatase 74 U/L (38-126); Aspartate Aminotransferase 22 IU/L (14-36); Bilirubin Total 0.5 mg/dL (0.2-1.3); Blood Urea Nitrogen 20 mg/dL (7-17); Calcium 8.4 mg/dL (8.4-10.2); Carbon Dioxide 28 mmol/L (22-32); Chloride 106 mmol/L (98-107); Estimated Glomerular Filt Rate > 60 mL/min (>60); Globulin 2.8 g/dL (1.7-4.1); Glucose 89 mg/dL (80-110); HEMOLYSIS < 15 (0-50); Potassium 3.9 mmol/L (3.4-5.1); Sodium 139 mmol/L (137-145); Total Protein 6.5 g/dL (6.3-8.2)
[2022-09-01 10:36] LABS: Vitamin D 25 Hydroxy (D3) < 12.8 ng/mL (30.0-100.0)
[2022-09-01 11:17] LABS: Folate 10.5 ng/mL (2.76-20.0); Vitamin B12 212 pg/mL (239-931)
== END ==
PROVIDERS: PCP Internal Medicine; Referring Provider Internal Medicine; Visit Provider Internal Medicine
DX: M81.0 Age-related osteoporosis without current pathological fracture (principal); Z98.84 Bariatric surgery status; Z76.89 Persons encountering health services in other specified circumstances; Z12.11 Encounter for screening for malignant neoplasm of colon
CPT/HCPCS: 36415; 80053; 82306; 82607; 82746

== ENCOUNTER → 2022-10-12 | Outpatient (CLI) | payer OTHER, SELFPAY ==
--- NOTE | 2022-10-12 15:11 | DI.MRI.S_ITS ---
PROCEDURE: MR LUMBAR SPINE WO CON INDICATIONS: STRAIN OF LUMBAR REGION TECHNIQUE: Noncontrast sagittal T1 spin echo and T2 fast echo, sagittal STIR, and T2 fast spin echo through the lumbar spine. In cases with scoliosis, additional coronal T2 fast spin echo may be performed. COMPARISON: [facility], CR, XR LUMBAR SPINE WITH OBLIQUES PLUS FLEXION EXTENSION, 09/16/2022, 15:24. FINDINGS: Image quality: Excellent. Alignment and Curvature: 5 lumbar type vertebral bodies are present by plain film. 4 mm of retrolisthesis of T12 on L1. 2 mm of retrolisthesis of L1 on L2. 3 mm of retrolisthesis of L2 on L3. Bone Marrow: Marrow is of normal overall signal. No acute vertebral body compression fractures. Mild chronic appearing wedging of T12. Mild reactive signal throughout the endplates of the lumbar and lower thoracic spine. Spinal Cord: Conus medullaris terminates at the mid L2 level. Visualized cord demonstrates normal signal and size. Paraspinous Soft Tissues: No paravertebral masses. T12-L1: Moderate disc desiccation. Mild disc height loss and diffuse disc bulge. Mild canal stenosis. Mild bilateral foraminal stenosis. L1-L2: Mild diffuse disc bulge. Mild facet and ligamentum flavum hypertrophy. Mild canal stenosis. Mild bilateral foraminal stenosis. L2-L3: Mild disc desiccation and diffuse disc bulge. Mild bilateral facet hypertrophy. Mild canal stenosis. Mild bilateral foraminal stenosis. L3-L4: Mild disc desiccation and diffuse disc bulge. Mild facet and ligamentum flavum hypertrophy. Mild canal stenosis. Moderate bilateral foraminal stenosis. L4-L5: Mild disc desiccation and diffuse disc bulge. Mild bilateral facet hypertrophy. Mild canal stenosis. Moderate bilateral foraminal stenosis. L5-S1: Mild disc desiccation. Mild bilateral facet hypertrophy. No significant canal nor foraminal stenosis. IMPRESSION: 1. Multilevel degenerative disc and facet disease, as well as ligamentum flavum hypertrophy and epidural lipomatosis. 2. Mild multilevel canal and foraminal stenoses. No neural impingement. Dictated by: Anupam Harmon M.D. on 10/13/2022 at 9:47 Approved by: Anupam Harmon M.D. on 10/13/2022 at 9:50
== END ==
PROVIDERS: PCP Internal Medicine; Referring Provider Physical Medicine & Rehabilitation Pain Medicine; Visit Provider Physical Medicine & Rehabilitation Pain Medicine
DX: S39.012A Strain of muscle, fascia and tendon of lower back, initial encounter (principal); M51.36 Other intervertebral disc degeneration, lumbar region; M48.061 Spinal stenosis, lumbar region without neurogenic claudication; M47.896 Other spondylosis, lumbar region; M47.897 Other spondylosis, lumbosacral region
CPT/HCPCS: 72148

== ENCOUNTER → 2023-01-22 14:42 | Outpatient (CLI) | payer BC, SELFPAY ==
[2023-01-22 15:23] LABS: Hematocrit 40.1 % (36-46); Hemoglobin 13.3 g/dL (12.0-16.0); Mean Corpuscular HGB Conc 33.1 % (30-36); Mean Corpuscular Hemoglobin 30.4 PG (26-34); Mean Corpuscular Volume 91.8 fL (80-100); Platelet Count 213 X10^3/uL (150-400); Red Blood Cell Count 4.37 X10^6/uL (4.0-5.2); White Blood Cell Count 4.4 X10^3/uL (4.5-11.0)
[2023-01-22 16:17] LABS: Alanine Aminotransferase 19 IU/L (<35); Albumin 3.7 g/dL (3.5-5.0); Albumin Globulin Ratio 1.4 (1.0-2.8); Alkaline Phosphatase 91 U/L (38-126); Aspartate Aminotransferase 21 IU/L (14-36); BUN Creatinine Ratio 22.2 (6-22); Bilirubin Total 0.3 mg/dL (0.2-1.3); Blood Urea Nitrogen 16 mg/dL (7-17); Calcium 8.1 mg/dL (8.4-10.2); Carbon Dioxide 20 mmol/L (22-32); Chloride 108 mmol/L (98-107); Cholesterol 140 mg/dL (140-199); Estimated Glomerular Filt Rate > 60 mL/min (>60); Globulin 2.7 g/dL (1.7-4.1); Glucose 91 mg/dL (80-110); HDL Cholesterol 57 mg/dL (40-60); HEMOLYSIS < 15 (0-50); LDL Cholesterol Calculated 60 mg/dL (<100); Potassium 4.1 mmol/L (3.4-5.1); Sodium 137 mmol/L (137-145); Total Protein 6.4 g/dL (6.3-8.2); Triglycerides 113 mg/dL (35-150)
[2023-01-22 16:20] LABS: TSH w/ Reflex to FT4 3.26 uIU/mL (0.47-4.68)
[2023-01-22 16:39] LABS: Vitamin B12 399 pg/mL (239-931)
[2023-01-22 17:38] LABS: Vitamin D 25 Hydroxy (D3) 22.1 ng/mL (30.0-100.0)
[2023-01-23 06:07] LABS: Labcorp Hemoglobin (Hb) A1c 5.2 % (4.8-5.6)
== END ==
PROVIDERS: PCP Internal Medicine; Referring Provider Internal Medicine; Visit Provider Internal Medicine
DX: E53.8 Deficiency of other specified B group vitamins (principal); E55.9 Vitamin D deficiency, unspecified; E78.2 Mixed hyperlipidemia; I10 Essential (primary) hypertension; I48.0 Paroxysmal atrial fibrillation
CPT/HCPCS: 36415; 80053; 80061; 82306; 82607; 83036; 84443; 85027

== ENCOUNTER → 2023-02-10 12:47 | Outpatient (CLI) | payer BC, SELFPAY ==
--- NOTE | 2023-02-10 | DI.MG.S_ITS ---
BILATERAL DIGITAL SCREENING MAMMOGRAM 3D/2D WITH CAD: 02/10/2023 CLINICAL: Routine screening. Comparison is made to exams dated: 06/13/2020 mammogram and 05/31/2019 mammogram - outside location. There are scattered areas of fibroglandular density in both breasts (category b / 25%-50% glandular tissue). Current study was also evaluated with a Computer Aided Detection (CAD) system. No significant masses, calcifications, or other findings are seen in either breast. There has been no significant interval change. IMPRESSION: NEGATIVE There is no mammographic evidence of malignancy. A 1 year screening mammogram is recommended. Based on the Tyrer Cuzick model (a risk assessment model) the patient's lifetime risk is 3.6% and her 10 year risk is 2.2%. According to the ACR, ACS, and NCCN guidelines, an annual breast MRI exam along with mammogram is recommended if the patient's lifetime risk is 20% or greater. This exam was interpreted at Station ID: [id number]. NOTE: For mammograms, a report in lay terms will be sent to the patient. Approximately 15% of breast malignancies will not be visualized mammographically. In the management of a palpable breast mass, a negative mammogram must not discourage biopsy of a clinically suspicious lesion. Electronically Signed By: Dexter rosales/malaika:02/10/2023 17:41:41 letter sent: Normal Exam ACR BI-RADS Category 1: Negative [id number]
== END ==
PROVIDERS: PCP Internal Medicine; Referring Provider Internal Medicine; Visit Provider Internal Medicine
DX: Z12.31 Encounter for screening mammogram for malignant neoplasm of breast (principal)
CPT/HCPCS: 77063; 77067

== ENCOUNTER 2023-03-25 23:46 | Emergency (ER) | payer BC, SELFPAY ==
--- NOTE | 2023-03-25 23:50 | DI.RAD.S_ITS ---
PROCEDURE: XR CHEST 1V INDICATIONS: chest pain TECHNIQUE: One view of the chest was acquired. COMPARISON: [facility], CR, XR CHEST 2V, 05/14/2022, 17:38. FINDINGS: Surgical changes and devices: None. Lungs and pleura: Increased interstitial lung markings are noted bilaterally. No definite focal infiltrate.. No pleural effusions or pneumothorax. Mediastinum: Mediastinal contours appear normal. Heart size is normal. Bones and chest wall: No suspicious bony lesions. Overlying soft tissues appear unremarkable. IMPRESSION: Increased interstitial lung markings concerning for mild pneumonitis. No focal infiltrate, pleural effusion or pneumothorax. Dictated by: Steve Chavez M.D. on 03/26/2023 at 0:21 Approved by: Steve Chavez M.D. on 03/26/2023 at 0:21
[2023-03-25 23:54] VITALS: BP 142/64; PULSE 75; RESP 16; O2SAT 95
[2023-03-26] VITALS (12 sets, daily range): BP systolic 117–144; BP diastolic 55–65; PULSE 72–84; RESP 14–24; TEMP 36.9–37.2; O2SAT 92–99; BMI 40.8
[2023-03-26 00:20] LABS: Add Manual Diff / Slide Review NO; Basophils Absolute Auto 0 /uL (0-100); Basophils Percent Auto 0.3 % (0-2); Eosinophils Absolute Auto 0 /uL (0-450); Eosinophils Percent Auto 0.4 % (2-4); Hematocrit 39.4 % (36-46); Lymphocytes Absolute Auto 200 /uL (1100-4500); Lymphocytes Percent Auto 5.3 % (25-40); Mean Corpuscular HGB Conc 33.1 % (30-36); Mean Corpuscular Hemoglobin 30.4 PG (26-34); Mean Corpuscular Volume 91.8 fL (80-100); Monocytes Absolute Auto 400 /uL (0-900); Monocytes Percent Auto 10.8 % (3-14); Neutrophils Absolute Auto 3500 /uL (1500-7000); Neutrophils Percent Auto 83.2 % (50-75); Platelet Count 177 X10^3/uL (150-400); Red Blood Cell Count 4.29 X10^6/uL (4.0-5.2); Red Cell Distribution Width 14.3 % (11.6-14.8); White Blood Cell Count 4.2 X10^3/uL (4.5-11.0)
[2023-03-26 00:27] LABS: INR 1.2 (0.9-1.3); Prothrombin Time 13.8 SECONDS (10.1-12.7)
[2023-03-26 00:29] LABS: PTT Partial Thromboplastin Tim 49 SECONDS (26-36)
[2023-03-26 00:47] LABS: Alanine Aminotransferase 17 IU/L (<35); Albumin 3.8 g/dL (3.5-5.0); Albumin Globulin Ratio 1.3 (1.0-2.8); Alkaline Phosphatase 102 U/L (38-126); Aspartate Aminotransferase 23 IU/L (14-36); Bilirubin Total 0.3 mg/dL (0.2-1.3); Blood Urea Nitrogen 18 mg/dL (7-17); Calcium 8.7 mg/dL (8.4-10.2); Carbon Dioxide 25 mmol/L (22-32); Chloride 103 mmol/L (98-107); Creatine Kinase 76 U/L (30-135); Estimated Glomerular Filt Rate > 60 mL/min (>60); Glucose 88 mg/dL (80-110); HEMOLYSIS 22 (0-50); Lipase 211 U/L (23-300); Potassium 4.5 mmol/L (3.4-5.1); Sodium 135 mmol/L (137-145); Total Protein 6.8 g/dL (6.3-8.2)
[2023-03-26 00:58] LABS: Troponin I < 0.012 ng/mL (0.01-0.034)
--- NOTE | 2023-03-26 01:34 | ED_ITS ---
HPI - Chest Pain General Chief Complaint: Chest Pain Stated Complaint: chest pain Time Seen by Provider: 03/26/23 01:28 Source: patient Mode of arrival: Ambulatory Limitations: no limitations History of Present Illness HPI narrative: 72-year-old female with history of paroxysmal atrial fibrillation on Eliquis, patient has had prior gastric biliary or bypass with an Angelchik prosthesis in the , obesity with significant weight loss, restless leg, dyslipidemia and GERD. Patient presents with substernal chest pain that started around 19303/25/23, patient states was sitting in her recliner when it started does not radiate to her abdomen or jaw, little bit towards the back. No shortness of breath. She is felt cold but had no diaphoresis. No pleuritic chest pain. No shortness of breath. No nausea or vomiting, no abdominal back or flank pain. She has had a headache today. She denies cold cough or congestion. No issues with bowel movements she is had normal stools with no black or blood. No urinary dysuria urgency or frequency. No swelling in her extremities. Patient states she felt a little bit off today she is not had any lightheadedness. Show other blood pressure was elevated at 170 range at home. She states she is quite stressed today her dog ran away from home today but she is able find him. Patient states she has had similar symptoms in the past, 1 prior episode she was seen at [facility] and they believed it was her Angelchik device causing symptoms. She states she does not have symptoms regularly exertion does not seem to make it worse got worse this evening when she laid down for bed. She states once when she had similar symptoms she had a GI cocktail which resolved it. She states she is on Eliquis because she is had paroxysmal atrial fibrillation 3 times in the past she is never required ablation or intervention she is never had a cardiac catheterization. She takes Cardizem daily prophylactically. States no diabetes or hemoglobin A1c was 5.2 on last check. She is had prior cholecystectomy, appendectomy, total hysterectomy urinary surgeries, bilateral inner thigh lift and abdominal plasty as well as gastric biliary bypass and the angelchik device. Patient states allergic to Robaxin makes her itch, IV contrast from CTs causes respiratory distress, nitro makes her pass out, iron gives her abdominal pain. No tobacco, alcohol or illicit. Her primary care is Dr. Merrill. She has not established with Cardiology locally she moved to the area in the last year or two. Related Data Home Medications Medication Instructions Recorded Confirmed syringe with needle 3 mL 25 x 1 #100 ea 01/15/23 01/15/2306/16 (BD Luer-Brittany Syringe) vit C 250 mg-vit E 90 mg-zinc 40 1 tab PO BID 01/15/23 01/15/23 mg-copper 1 [id number] capsule (PreserVision AREDS-2) Fish oil [place] 3 (250 +50) PO 01/20/23 Joint movement 1 tab PO DAILY 01/20/[address] Iron ([place]) PO 01/20/23 liquid 18mg QD [address] Vitamin D3 liquid PO 01/20/23 1000mg QD loperamide 30 ml liquid PO 01/20/23 phentermine 37.5 mg tablet 37.5 mg PO DAILY 01/20/23 topiramate 25 mg capsule,extended 25 mg PO DAILY 01/20/23 release 24 hr Previous Rx's Medication Instructions Recorded acetaminophen 325 mg tablet 650 mg (2 x 325 mg) PO TID PRN 08/24/21 fever or pain #90 tabs docusate sodium 100 mg capsule 100 mg PO BID PRN constipation #60 08/24/21 caps alendronate 70 mg tablet 70 mg PO QWEEK #12 tabs 01/15/23 apixaban 5 mg tablet (Eliquis) 5 mg PO BID #180 tabs 01/15/23 bupropion HCl 450 mg 24 hr tablet, 450 mg PO QAM #90 tabs 01/15/23 extended release cyanocobalamin (vitamin B-12) 1,000 mcg IM Q4W #3 mL 01/15/23 1,000 mcg/mL injection solution diltiazem HCl 120 mg 120 mg PO QAM #90 tabs 01/15/23 tablet,extended release 24 hr (Cardizem LA) ergocalciferol (vitamin D2) 1,250 1,250 mcg PO QWEEK #12 caps 01/15/23 mcg (50,000 unit) capsule escitalopram oxalate 20 mg tablet 20 mg PO DAILY #90 tabs 01/15/23 omeprazole 20 mg capsule,delayed 20 mg PO DAILY #90 caps 01/15/23 release ropinirole 1 mg tablet 3 mg (3 x 1 mg) PO BEDTIME #90 tabs 01/15/23 lidocaine HCl 2 % mucosal solution 15 ml mucous membrane DAILY PRN 01/27/23 (Lidocaine Viscous) pain #100 mL Allergies Allergy/AdvReac Type Severity Reaction Status Date / Time Iodinated Contrast Media Allergy Severe Difficulty Verified 01/20/23 17:31 Breathing methocarbamol [From Robaxin] Allergy Intermediate Rash Verified 01/20/23 17:31 ferrous sulfate AdvReac Mild Gastrointestinal Verified 01/20/23 17:31 Upset Review of Systems Review of Systems ROS Unobtainable: All systems reviewed & are unremarkable except as noted in HPI and below Patient History Medical History Eczema (~2021) Actinic keratosis (~2021) Osteoarthritis Shoulder pain (~05/2022) Scoliosis Osteoporosis (~2014) Fractures Ankle pain (~05/2022) Positive PPD (~2006) Measles (~1957) Chicken pox (~1956) Anemia (~1990) Vertigo (~2014) History of urinary incontinence (~1987) Fecal incontinence (~1991) Hemorrhoid Cardiac arrhythmia (~2001) Atrial fibrillation (~2001) Cervical cancer (~1992) Vitamin D deficiency History of cervical cancer B12 deficiency Severe obesity (BMI >= 40) History of Guillain-Low Moor syndrome GERD without esophagitis Generalized anxiety disorder Depression, major, recurrent Age-related osteoporosis without current pathological fracture Chronic low back pain (~1969) Chronic anticoagulation Primary osteoarthritis involving multiple joints Mixed hyperlipidemia DDD (degenerative disc disease) Chronic anemia Depression Dry skin Easy bruisability Fatty liver JL on CPAP (~2019) Hearing impaired (~2014) Macular degeneration of both eyes RLS (restless legs syndrome) (~09/2021) Fibromyalgia (~1996) Esophageal spasm Paroxysmal A-fib Surgical History Anesthesia History of total hysterectomy History of hernia repair History of arthroplasty of right knee (08/20/21) Status post total knee replacement, right History of bladder surgery Hx of arthroscopy of right knee History of surgery Hx of abdominoplasty History of hysterectomy Hx of appendectomy (~1991) Hx of cholecystectomy (~1991) Hx of bariatric surgery (~1991) Family History Father History of heart disease Mother Stroke Brother Stroke Brother Subdural hemorrhage Family/Other ADHD Mitral regurgitation History of bipolar disorder Atrial fibrillation Mental health problem Social History details: x 3, 3 children, retired, part-time RN household members: none Smoking Status: Former smoker alcohol intake: current Smoking Status: Former smoker alcohol intake frequency: holidays/special occasions only Substance Use Type: does not use Exam Narrative Exam Narrative: GENERAL: Alert and oriented x three, obese female in mild distress. HEENT: Head normocephalic, atraumatic, EOMI, pupils reactive, face symmetric, moist mucous membranes NECK: Supple, full range of motion CARDIOVASCULAR: Regular rate and rhythm without murmurs, rubs or gallops. No JVD. No swelling bilateral lower extremities. No reproducible chest pain. RESPIRATORY: Breath sounds equal bilaterally, no wheezes rales or rhonchi. No tachypnea, no accessory muscle use. Speaks in full sentences. ABDOMEN: Soft, nontender. Normoactive bowel sounds all 4 quadrants. No guarding or rebound, rigidity, no mass, no pulsatile mass or bruit. : No CVA tenderness EXTREMITIES: Normal range of motion, no clubbing or edema. 2+ pulses bilateral lower extremities. Neurovascularly intact NEUROLOGICAL: Cranial nerves II through XII grossly intact. Moving all extremities SKIN: Warm, dry, no petechiae, no rashes or lesions. Initial Vital Signs Initial Vital Signs: Vital Signs Pulse Rate 75 03/25/23 23:54 Respiratory Rate 16 03/25/23 23:54 Blood Pressure 142/64 H 03/25/23 23:54 Pulse Oximetry 95 03/25/23 23:54 Course Orders Ordered: ED Orders 03/25/23 23:50 XR chest 1V Stat Complete Blood Count AUTO DIFF Stat Comprehensive Metabolic Panel Stat Lipase Stat Magnesium Stat PTT Partial Thromboplastin Graeme Stat Prothrombin Time INR Stat Troponin & CK Cardiac Panel Stat EKG-12 Lead Stat 03/26/23 02:05 COVID19 -Nasal RAPID Stat 03/26/23 02:20 Urine Culture Stat Urine Microscopic Stat EKG-12 Lead Stat 03/26/23 02:27 BNP [NT-proBNP (BNP-Adult 18+)] Stat Trop I [Troponin I] Stat Discontinued Medications Aspirin (Aspirin 81 Mg Chew Tab) 324 mg PO NOW ONE Stop: 03/25/23 23:51 Al Hydrox/Mg Hydrox/Simethicone 20 ml/ Lidocaine HCl 15 ml 0 ml PO NOW ONE Stop: 03/26/23 02:01 Last Admin: 03/26/23 02:09 Dose: 20 ml Documented By: SIMON Vital Signs Vital signs: Vital Signs - 8 hr 03/25/23 23:54 03/25/23 23:54 03/26/23 00:00 Temperature Pulse Rate 75 Respiratory Rate 16 Blood Pressure 142/64 H 144/65 H Pulse Oximetry 95 Oxygen Delivery Method 03/26/23 00:00 03/26/23 00:06 03/26/23 00:30 Temperature 98.9 F Pulse Rate 77 74 Respiratory Rate 21 18 Blood Pressure 142/64 H 137/62 Pulse Oximetry 99 99 Oxygen Delivery Method Room Air 03/26/23 00:30 03/26/23 01:00 03/26/23 01:01 Temperature Pulse Rate 84 83 83 Respiratory Rate 16 19 18 Blood Pressure Pulse Oximetry 95 94 95 Oxygen Delivery Method 03/26/23 01:01 03/26/23 01:30 03/26/23 01:30 Temperature Pulse Rate 81 Respiratory Rate 18 Blood Pressure 136/63 131/63 Pulse Oximetry 93 Oxygen Delivery Method 03/26/23 02:00 03/26/23 02:00 03/26/23 02:16 Temperature Pulse Rate 80 Respiratory Rate 17 Blood Pressure 131/60 130/60 Pulse Oximetry 93 Oxygen Delivery Method 03/26/23 02:16 03/26/23 02:30 03/26/23 02:30 Temperature Pulse Rate 84 79 Respiratory Rate 23 14 Blood Pressure 124/55 L Pulse Oximetry 93 Oxygen Delivery Method 03/26/23 03:00 03/26/23 03:00 03/26/23 03:23 Temperature Pulse Rate 76 74 Respiratory Rate 20 24 Blood Pressure 120/62 Pulse Oximetry 92 93 Oxygen Delivery Method 03/26/23 03:24 03/26/23 03:24 Temperature 98.4 F Pulse Rate 72 Respiratory Rate 16 Blood Pressure 117/61 Pulse Oximetry 93 Oxygen Delivery Method MDM - Chest Pain Lab Data 03/26/23 00:05 03/26/23 00:05 Labs: Lab Results 10/12/23 10/12/23 10/12/23 Range/Units 00:05 02:05 02:20 WBC 4.2 L (4.5-11.0) X10^3/uL RBC 4.29 (4.0-5.2) X10^6/uL Hgb 13.0 (12.0-16.0) g/dL Hct 39.4 (36-46) % MCV 91.8 (80-100) fL MCH 30.4 (26-34) PG MCHC 33.1 (30-36) % RDW 14.3 (11.6-14.8) % Plt Count 177 (150-400) X10^3/uL Neut % (Auto) 83.2 H (50-75) % Lymph % (Auto) 5.3 L (25-40) % [place] % (Auto) 10.8 (3-14) % Eos % (Auto) 0.4 L (2-4) % Baso % (Auto) 0.3 (0-2) % Neut # (Auto) 3500 (0742-1138) /uL Lymph # (Auto) 200 L (1285-4131) /uL [place] # (Auto) 400 (0-900) /uL Eos # (Auto) 0 (0-450) /uL Baso # (Auto) 0 (0-100) /uL PT 13.8 H (10.1-12.7) SECONDS INR 1.2 (0.9-1.3) APTT 49 H (26-36) SECONDS Sodium 135 L (137-145) mmol/L Potassium 4.5 (3.4-5.1) mmol/L Chloride 103 (98-107) mmol/L Carbon Dioxide 25 (22-32) mmol/L BUN 18 H (7-17) mg/dL Creatinine 0.75 (0.52-1.04) mg/dL Estimated GFR > 60 (>60) mL/min BUN/Creatinine Ratio 24.0 H (6-22) Glucose 88 (80-110) mg/dL Calcium 8.7 (8.4-10.2) mg/dL Magnesium 2.0 (1.6-2.3) mg/dL Total Bilirubin 0.3 (0.2-1.3) mg/dL AST 23 (14-36) IU/L ALT 17 (<35) IU/L Alkaline Phosphatase 102 (38-126) U/L Total Creatine Kinase 76 (30-135) U/L Troponin I < 0.012 (0.01-0.034) ng/mL NT-Pro-B Natriuret Pep (<125) pg/mL Total Protein 6.8 (6.3-8.2) g/dL Albumin 3.8 (3.5-5.0) g/dL Globulin 3.0 (1.7-4.1) g/dL Albumin/Globulin Ratio 1.3 (1.0-2.8) Lipase 211 (23-300) U/L Urine RBC None seen (0-5/HPF) Urine WBC 0-1/hpf (0-5/HPF) Ur Squamous Epith Cells None seen D (0-5/HPF) Urine Bacteria Many (>30) H (None) Ur Culture Indicated? Specimen cultured SARS-CoV-2 (PCR) Positive H (Negative) 03/26/23 Range/Units 02:27 WBC (4.5-11.0) X10^3/uL RBC (4.0-5.2) X10^6/uL Hgb (12.0-16.0) g/dL Hct (36-46) % MCV (80-100) fL MCH (26-34) PG MCHC (30-36) % RDW (11.6-14.8) % Plt Count (150-400) X10^3/uL Neut % (Auto) (50-75) % Lymph % (Auto) (25-40) % [place] % (Auto) (3-14) % Eos % (Auto) (2-4) % Baso % (Auto) (0-2) % Neut # (Auto) (6338-7857) /uL Lymph # (Auto) (3758-4789) /uL [place] # (Auto) (0-900) /uL Eos # (Auto) (0-450) /uL Baso # (Auto) (0-100) /uL PT (10.1-12.7) SECONDS INR (0.9-1.3) APTT (26-36) SECONDS Sodium (137-145) mmol/L Potassium (3.4-5.1) mmol/L Chloride (98-107) mmol/L Carbon Dioxide (22-32) mmol/L BUN (7-17) mg/dL Creatinine (0.52-1.04) mg/dL Estimated GFR (>60) mL/min BUN/Creatinine Ratio (6-22) Glucose (80-110) mg/dL Calcium (8.4-10.2) mg/dL Magnesium (1.6-2.3) mg/dL Total Bilirubin (0.2-1.3) mg/dL AST (14-36) IU/L ALT (<35) IU/L Alkaline Phosphatase (38-126) U/L Total Creatine Kinase (30-135) U/L Troponin I < 0.012 (0.01-0.034) ng/mL NT-Pro-B Natriuret Pep 202 H (<125) pg/mL Total Protein (6.3-8.2) g/dL Albumin (3.5-5.0) g/dL Globulin (1.7-4.1) g/dL Albumin/Globulin Ratio (1.0-2.8) Lipase (23-300) U/L Urine RBC (0-5/HPF) Urine WBC (0-5/HPF) Ur Squamous Epith Cells (0-5/HPF) Urine Bacteria (None) Ur Culture Indicated? SARS-CoV-2 (PCR) (Negative) Urine Dip Bedside Urine Glucose Negative Bedside Urine Bilirubin - Negative Bedside Urine Ketone - Negative Urine Specific [place] 1.015 Bedside Urine Occult Blood +/- Bedside Urine pH 6.0 Bedside Urine Protein - Negative Bedside Urine Urobilinogen - Negative Bedside Urine Nitrite + Positive Bedside Urine Leukocytes - Negative Esterase Imaging Data Chest x-ray: Radiologist's Impression: [address] [address] XRay Report? Signed Patient: Haleigh Parsons MR#: [id number] : 1950 Acct:[id number] Age/Sex: 72 / F Date of Service: 03/25/23 Loc: ED Accession Number: [id number]? ? Procedure: XR chest 1V Ordering Provider: Nery Taylor D.O. PROCEDURE:? XR CHEST 1V ? INDICATIONS:? chest pain ? TECHNIQUE:? One view of the chest was acquired.?? ? COMPARISON:? [facility], CR, XR CHEST 2V, 05/14/2022, 17:38. ? FINDINGS:?? ? Surgical changes and devices:? None.?? ? Lungs and pleura:? Increased interstitial lung markings are noted bilaterally.? No? definite focal infiltrate..? No pleural effusions or pneumothorax.?? ? Mediastinum:? Mediastinal contours appear normal.? Heart size is normal.?? ? Bones and chest wall:? No suspicious bony lesions.? Overlying soft tissues appear? unremarkable.? IMPRESSION:? Increased interstitial lung markings concerning for mild pneumonitis.? No? focal infiltrate, pleural effusion or pneumothorax.?? ? Dictated by: Steve Chavez M.D. on 03/26/2023 at 0:21? ? ? Approved by: Steve Chavez M.D. on 03/26/2023 at 0:21? ? ECG Data Attestation: I personally reviewed and interpreted this ECG as follows: Prior ECG tracings: available for review Interpretation: Sinus rhythm rate of 70 6p are 198 QRS of 94 and QTC of 416. No acute ST elevation depression noted. Patient has prior from 09/27/2021 which appears similar no acute or dynamic changes noted. EKG#2. Sinus rhythm rate of 79 AL 208 QRS of 92 and QTC 433. No acute ST elevation or depression noted. No dynamic changes. MDM Narrative Medical decision making narrative: This is a 72-year-old female who presents with complaint of chest pain. Patient does have a history of atrial fibrillation but is sinus rhythm here today she states she is felt a little under the weather today, had some headache just felt sort of fatigued. Had some substernal chest pain did radiate a little bit. No syncope, no other GI or urinary symptoms as some mild nausea. Patient states pain was still present she is had similar issues in the past and responded to GI cocktail. Was given 1 here which was helpful. Patient's chest x-ray showed possible little bit of pneumonitis. CBC, CMP, lipase and troponin did not show clear cause, troponin was repeated and EKG x2 showed no acute ST changes. Patient's COVID swab is positive today and discussed with patient's thinks that is the likely source of her symptoms currently. Patient is feeling somewhat improved stools does have a headache but states she can take medication at home. Discussed return precautions all questions answered. Discharge Plan Departure Patient Disposition: Home Clinical Impression: COVID-19 virus infection, Chest pain Instructions: DI for COVID-19 (Suspected or Confirmed ) Activity Restrictions/Additional Instructions: You tested positive today for COVID infection, you do have some mild changes on your chest x-ray consistent with pneumonitis. Your cardiac workup was negative. I hope you continue to feel better I suspect some of your chest pain is secondary to your current infection. You may continue your home medications as prescribed. Please return for fevers new or worsening chest pain or shortness of breath, passing out, new swelling in her extremities, persistent vomiting, black or bloody stools or other new or concerning changes. Prescriptions: No Action Joint movement 1 tab PO DAILY Rx Instructions: Joint Movement (Glucosamine 2,000 + Chondrointin 1200 + MSM 500 + Vit D3 10mcg, + Hydroluronic Acid 10 mg) [address] Iron ([place]) liquid 18mg QD PO Rx Instructions: Nature[place] Iron ([place]) liquid 18mg QD Fish oil [place] 3 (250 +50) PO Rx Instructions: Fish oil [place] 3 (250 +50) Nature[address] Way Vitamin D3 liquid 1000mg QD PO Rx Instructions: Nature?[address] Vitamin D3 liquid 1000mg QD loperamide 30 ml liquid PO Rx Instructions: loperamide is 30 ml liquid phentermine 37.5 mg tablet 37.5 mg PO DAILY Rx Instructions: must administer 30 minutes before or 1-2 hours after breakfast topiramate 25 mg capsule,extended release 24hr 25 mg PO DAILY lidocaine HCl [Lidocaine Viscous] 2 % solution 15 ml mucous membrane DAILY PRN (Reason: pain) Qty: 100 1RF Rx Instructions: Lidocaine HCL 2% Viscous 100ml 15ml PRN choking/chest pain related to a faulty mechanism on my esophagus. (DME) BD Luer-Brittany Syringe 3 mL 25 x 1 1/2 syringe See Rx Instructions .ROUTE .MEDSUPPLY Qty: 100 Patient Comments: [NO ORIGINAL SIG] Rx Instructions: As directed for b12 injections PreserVision AREDS-2 250-90-40-1 mg capsule 1 tab PO BID Eliquis 5 mg tablet 5 mg PO BID Qty: 180 3RF Cardizem LA 120 mg tablet extended release 24 hr 120 mg PO QAM Qty: 90 3RF bupropion HCl 450 mg tablet extended release 24 hr 450 mg PO QAM Qty: 90 3RF escitalopram oxalate 20 mg tablet 20 mg PO DAILY Qty: 90 3RF ropinirole 1 mg tablet 3 mg PO BEDTIME Qty: 90 3RF ergocalciferol (vitamin D2) 1,250 mcg (50,000 unit) capsule 1,250 mcg PO QWEEK Qty: 12 3RF cyanocobalamin (vitamin B-12) 1,000 mcg/mL solution 1,000 mcg IM Q4W Qty: 3 3RF alendronate 70 mg tablet 70 mg PO QWEEK Qty: 12 3RF omeprazole 20 mg capsule,delayed release(DR/EC) 20 mg PO DAILY Qty: 90 3RF acetaminophen 325 mg Tablet 650 mg PO TID PRN (Reason: fever or pain) Qty: 90 2RF docusate sodium 100 mg Capsule 100 mg PO BID PRN (Reason: constipation) Qty: 60 2RF Referrals: Quinton Merrill MD [Primary Care Provider] - Stand Alone Forms: Patient Portal/API
[2023-03-26] MEDS: MAG HYDROX/ALUMINUM/SIMETH SUS 20 ML, LIDOCAINE VISCOUS 2% 15 ML PO (02:09)
[2023-03-26 02:53] LABS: NT-proBNP (BNP-Adult 18+) 202 pg/mL (<125)
[2023-03-26 02:55] LABS: RBC Urine None Seen (0-5/HPF); WBC Urine 0-1/HPF (0-5/HPF)
[2023-03-26 02:56] LABS: Troponin I < 0.012 ng/mL (0.01-0.034)
[2023-03-26 02:56] LABS: Bacteria Urine Many (>30); Culture Indicated Urine Specimen Cultured; Squamous Epithelial Cell Urine None Seen (0-5/HPF)
[2023-03-26 03:10] LABS: COVID19 -Nasal RAPID POSITIVE (Negative)
== END 2023-03-26 03:32 | disposition home or self-care (01) ==
PROVIDERS: Emergency Provider Emergency Medicine; PCP Internal Medicine
DX: U07.1 COVID-19 (principal); R07.9 Chest pain, unspecified; Z79.01 Long term (current) use of anticoagulants
CPT/HCPCS: 36415; 71045; 80053; 81003; 81015; 82550; 83690; 83735; 83880; 84484; 85025; 85610; 85730; 87077; 87086; 87186; 87635; 93005; 99284; C9803

== ENCOUNTER → 2023-08-20 13:46 | Outpatient (CLI) | payer BC, SELFPAY ==
[2023-03-26 12:39] VITALS: BMI 42.1
== END ==
PROVIDERS: PCP Internal Medicine; Referring Provider Internal Medicine; Visit Provider Internal Medicine
DX: I48.91 Unspecified atrial fibrillation (principal); I48.92 Unspecified atrial flutter; R00.2 Palpitations
CPT/HCPCS: 93246

== ENCOUNTER → 2023-11-12 14:27 | Outpatient (CLI) | payer BC, SELFPAY ==
[2023-03-26 12:39] VITALS: BMI 42.1
[2023-11-12 15:50] LABS: Hemoglobin 13.9 g/dL (12.0-16.0); Mean Corpuscular HGB Conc 33.1 % (30-36); Mean Corpuscular Hemoglobin 30.4 PG (26-34); Mean Corpuscular Volume 91.8 fL (80-100); Platelet Count 268 X10^3/uL (150-400); Red Blood Cell Count 4.57 X10^6/uL (4.0-5.2); Red Cell Distribution Width 13.9 % (11.6-14.8); White Blood Cell Count 7.2 X10^3/uL (4.5-11.0)
[2023-11-12 16:34] LABS: HEMOLYSIS < 15 (0-50); Iron 85 ug/dL (37-170)
[2023-11-12 16:42] LABS: Alanine Aminotransferase 18 IU/L (<35); Albumin 4.3 g/dL (3.5-5.0); Albumin Globulin Ratio 1.5 (1.0-2.8); Alkaline Phosphatase 85 U/L (38-126); Aspartate Aminotransferase 25 IU/L (14-36); BUN Creatinine Ratio 26.3 (6-22); Bilirubin Total 0.4 mg/dL (0.2-1.3); Blood Urea Nitrogen 20 mg/dL (7-17); Calcium 8.7 mg/dL (8.4-10.2); Carbon Dioxide 19 mmol/L (22-32); Chloride 113 mmol/L (98-107); Cholesterol 144 mg/dL (140-199); Estimated Glomerular Filt Rate > 60 mL/min (>60); Globulin 2.8 g/dL (1.7-4.1); Glucose 75 mg/dL (80-110); HDL Cholesterol 84 mg/dL (40-60); HEMOLYSIS < 15 (0-50); LDL Cholesterol Calculated 31 mg/dL (<100); Potassium 4.3 mmol/L (3.4-5.1); Sodium 139 mmol/L (137-145); Total Protein 7.1 g/dL (6.3-8.2); Triglycerides 147 mg/dL (35-150)
[2023-11-12 16:43] LABS: Hemoglobin A1C% w Est Avg Glu 4.9 % (4.0-6.0)
[2023-11-12 16:47] LABS: Percent Iron Saturation 20 % (15-50); Total Iron Binding Capacity 420 ug/dL (265-497); Transferrin 326 mg/dL (206-381)
[2023-11-12 16:55] LABS: Vitamin D 25 Hydroxy (D3) 16.2 ng/mL (30.0-100.0)
[2023-11-12 17:20] LABS: Ferritin 12 ng/mL (11-264)
[2023-11-12 17:35] LABS: Vitamin B12 519 pg/mL (239-931)
== END ==
PROVIDERS: PCP Internal Medicine; Referring Provider Internal Medicine; Visit Provider Internal Medicine
DX: I48.0 Paroxysmal atrial fibrillation (principal); E55.9 Vitamin D deficiency, unspecified; E53.8 Deficiency of other specified B group vitamins; D64.9 Anemia, unspecified; R73.01 Impaired fasting glucose; E61.1 Iron deficiency
CPT/HCPCS: 36415; 80053; 80061; 82306; 82607; 82728; 83036; 83540; 83550; 84443; 85027

== ENCOUNTER → 2024-05-02 11:36 | Outpatient (CLI) | payer BC, SELFPAY ==
[2023-03-26 12:39] VITALS: BMI 42.1
--- NOTE | 2024-05-02 11:37 | DI.MG.S_ITS ---
BILATERAL DIGITAL SCREENING MAMMOGRAM 3D/2D WITH CAD: 05/02/2024 CLINICAL: Routine screening. Comparison is made to exams dated: 02/10/2023 mammogram - [facility], 06/13/2020 mammogram, and 05/31/2019 mammogram - outside location. There are scattered areas of fibroglandular density (category b / 25%-50% glandular tissue). Current study was also evaluated with a Computer Aided Detection (CAD) system. No significant masses, calcifications, or other findings are seen in either breast. There has been no significant interval change. IMPRESSION: NEGATIVE There is no mammographic evidence of malignancy. A 1 year screening mammogram is recommended. Based on the Tyrer Cuzick model (a risk assessment model) the patient's lifetime risk is 3.4% and her 10 year risk is 2.3%. According to the ACR, ACS, and NCCN guidelines, an annual breast MRI exam along with mammogram is recommended if the patient's lifetime risk is 20% or greater. This exam was interpreted at Station ID: [id number]. NOTE: For mammograms, a report in lay terms will be sent to the patient. Approximately 15% of breast malignancies will not be visualized mammographically. In the management of a palpable breast mass, a negative mammogram must not discourage biopsy of a clinically suspicious lesion. Electronically Signed By: Dexter rosales/malaika:05/02/2024 17:17:04 letter sent: Normal Exam ACR BI-RADS Category 1: Negative
== END ==
PROVIDERS: PCP Family Medicine; Referring Provider Family Medicine; Visit Provider Family Medicine
DX: Z12.31 Encounter for screening mammogram for malignant neoplasm of breast (principal)
CPT/HCPCS: 77063; 77067

== ENCOUNTER → 2024-07-22 14:23 | Outpatient (CLI) | payer BC, SELFPAY ==
[2023-03-26 12:39] VITALS: BMI 42.1
[2024-07-22 16:04] LABS: Free T4, Direct Thyroxine 1.03 ng/dL (0.78-2.19)
[2024-07-22 16:18] LABS: Thyroid Stimulating Hormone 3.13 uIU/mL (0.47-4.68)
== END ==
PROVIDERS: PCP Family Medicine; Referring Provider Internal Medicine Cardiovascular Disease; Visit Provider Internal Medicine Cardiovascular Disease
DX: I48.0 Paroxysmal atrial fibrillation (principal)
CPT/HCPCS: 36415; 84439; 84443

== ENCOUNTER → 2024-08-11 09:33 | Outpatient (CLI) | payer BC, SELFPAY ==
[2023-03-26 12:39] VITALS: BMI 42.1
--- NOTE | 2024-08-11 09:34 | DI.ECHO.S_ITS ---
[facility]+ [facility] : : [address] : : [place] : : [id number] : : Phone: [phone] Echocardiogram Report + + :Name: JEROME WERNER Study Date: 08/11/2024 Height: 66 in : :Hospital ReadingLocation: Weight: 208 lb: : Gender: Female BSA: 2.0 m2 : :: 1950 Age: 73 yrs BP: 98/62 mmHg: :Reason For Study: ATRIAL FIBRILLATION : :Ordering Physician: Génesis CARRIONformed By: Gume Benitez : :Referring: ROX CARRION : + + Interpretation Summary 1. The left ventricular contractility is normal. Estimate ejection fraction is greater than 55% with no segmental wall motion abnormalities. No LVH. Age- appropriate diastolic function. 2. The right ventricular contractility is normal. 3. All cardiac chambers are of normal size. 4. Mild eccentric tricuspid regurgitation with estimated pulmonary systolic artery pressures of 29 mmHg. 5. No obvious intracardiac shunts. The intra-atrial septum is mobile but not aneurysmal. 6. No obvious intracardiac masses nor thrombi. 7. No hemodynamically significant pericardial effusion. 8. Low right-sided filling pressures. Conclusion: Normal biventricular systolic function with mild tricuspid regurgitation without pulmonary hypertension. Procedure: A two-dimensional transthoracic echocardiogram with color flow and Doppler was performed. The study quality was technically good. There is no prior echocardiogram noted for this patient. The patient was in atrial fibrillation with heart rates between 57-74 bpm during the exam. Left Ventricle: The left ventricle is normal in size. There is normal left ventricular wall thickness. There is no ventricular septal defect visualized. The ejection fraction is estimated to be 55-60%. There are no focal wall motion abnormalities. Diastolic parameters suggest a relaxation abnormality of the left ventricle, consistent with probable normal filling pressures. Right Ventricle: The right ventricle is normal in size and function. Atria: The left atrial size is normal. Right atrial size is normal. There is no Doppler evidence for an atrial septal defect. Mitral Valve: The mitral valve leaflets appear normal. There is no evidence of stenosis, fluttering, or prolapse. There is trace mitral regurgitation. Aortic Valve: The aortic valve is trileaflet. The aortic valve opens well. No aortic regurgitation is present. Tricuspid Valve: The tricuspid valve leaflets are thin and pliable. There is mild tricuspid regurgitation. The right ventricular systolic pressure is estimated to be at least 29 mmHg based on an estimated right atrial pressure of 3 mm Hg. Pulmonic Valve: The pulmonic valve leaflets are thin and pliable; valve motion is normal. There is no pulmonic valvular regurgitation. Great Vessels: The aortic root is normal size. The ascending aorta is at the upper limits of normal in size. The pulmonary artery is normal size. The IVC is of normal diameter and collapses greater than 50% with a sniff. This suggests a low right atrial pressure of 3 mm Hg. Pericardium/ Pleura There is no pericardial effusion. There is no pleural effusion. MMode/2D Measurements & Calculations LVIDd: 4.3 cm LVOT diam: 2.0 cm LVIDs: 3.3 cm Ao root diam: 3.2 cm FS: 24.0 % asc Aorta Diam: 3.8 cm EPSS: 0.82 cm Ao Arch Diam (Prox Trans): 2.0 cm IVSd: 0.73 cm LVPWd: 0.66 cm LV bentley. diameter/BSA (cm/m^2): 2.1 LV sys. diameter/BSA (cm/m^2): 1.6 LA A2 area: 18.0 cm2 RA long axis: 5.0 cm LA A4 area: 18.4 cm2 RA area: 14.4 cm2 LA length (vol): 5.8 cm RA vol: 35.1 ml LA vol: 49.0 ml RA : 17.2 ml/m2 LA vol index: 24.1 ml/m2 IVC diam: 1.8 cm RVD1 (basal): 3.2 cm RVD2 (mid): 2.6 cm TAPSE: 1.7 cm Doppler Measurements & Calculations Ao V2 max: 140.8 cm/sec LVOT Max Gagan: 124.5 cm/sec Ao V2 mean: 96.2 cm/sec LV V1 max P.2 mmHg Ao max P.9 mmHg LV V1 VTI: 28.1 cm Ao mean P.1 mmHg ARNOL(I,D): 3.0 cm2 Ao V2 VTI: 30.0 cm ARNOL(V,D): 2.8 cm2 sev ratio: 0.93 ARNOL indexed to BSA (cm^2/m^2): 1.5 MV E max gagan: 51.9 cm/sec TR max gagan: 256.6 cm/sec MV A max gagan: 82.5 cm/sec TR max P.3 mmHg MV E/A: 0.63 PA V2 max: 77.0 cm/sec Med Peak E' Gagan: 5.3 cm/sec PA V2 mean: 51.5 cm/sec E/E' med: 9.7 PA mean P.2 mmHg Lat Peak E' Gagan: 8.5 cm/sec PA pr(Accel): 36.2 mmHg E/E' lat: 6.1 E/e' average: 7.9 MV dec time: 0.26 sec SV(LVOT): 90.4 ml Reading Physician:AMCRINA
== END ==
PROVIDERS: PCP Family Medicine; Referring Provider Internal Medicine Cardiovascular Disease; Visit Provider Internal Medicine Cardiovascular Disease
DX: I48.0 Paroxysmal atrial fibrillation (principal); I07.1 Rheumatic tricuspid insufficiency
CPT/HCPCS: 93306

== ENCOUNTER 2024-10-12 21:08 | Emergency (ER) | payer BC, SELFPAY ==
[2023-03-26 12:39] VITALS: BMI 42.1
--- NOTE | 2024-10-12 21:11 | EKG_ITS ---
[place] [id number] [place] [id number] Test Date: 2024-10-12 Pat Name: [facility] Department: [facility] Room: Gender: Female Dental Financial Coordinator: : 1950 Requested By: Order Number: [id number] Reading MD: Manuel Aguilar Measurements Intervals Liberal Rate: 94 P: 2 DE: 192 QRS: 8 QRSD: 82 T: 41 QT: 332 QTc: 415 Interpretive Statements Normal sinus rhythm Cannot rule out Anterior infarct , age undetermined Electronically Signed On 10-13-2024 8:14:12 PDT by Manuel Aguilar
[2024-10-12 21:12] VITALS: BP 140/77; PULSE 89; RESP 22; TEMP 36.9; O2SAT 97; BMI 33.6
--- NOTE | 2024-10-12 21:17 | DI.RAD.S_ITS ---
PROCEDURE: XR CHEST 1V INDICATIONS: Shortness of breath TECHNIQUE: One view of the chest was acquired. COMPARISON: [facility], CT, CT ABDOMEN PELVIS WITHOUT CONTRAST, 04/01/2024, 15:20. [facility], CR, XR CHEST 1V, 03/25/2023, 23:52. [facility], CR, XR CHEST 2V, 05/14/2022, 17:38. FINDINGS: Surgical changes and devices: Postsurgical changes in the left upper quadrant. Lungs and pleura: Lungs are clear. No pleural effusions or pneumothorax. Mediastinum: Mediastinal contours appear normal. Heart size is normal. Bones and chest wall: No suspicious bony lesions. Overlying soft tissues appear unremarkable. IMPRESSION: No acute cardiopulmonary abnormality is seen. Dictated by: Armando Marcelo M.D. on 10/12/2024 at 22:17 Approved by: Armando Marcelo M.D. on 10/12/2024 at 22:18
[2024-10-12 21:52] LABS: Add Manual Diff / Slide Review NO; Basophils Absolute Auto 0 /uL (0-100); Basophils Percent Auto 0.5 % (0-2); Eosinophils Absolute Auto 100 /uL (0-450); Eosinophils Percent Auto 3.3 % (2-4); Hematocrit 39.8 % (36-46); Hemoglobin 13.4 g/dL (12.0-16.0); Lymphocytes Absolute Auto 800 /uL (1100-4500); Lymphocytes Percent Auto 19.9 % (25-40); Mean Corpuscular HGB Conc 33.6 % (30-36); Mean Corpuscular Hemoglobin 31.5 PG (26-34); Mean Corpuscular Volume 93.7 fL (80-100); Monocytes Absolute Auto 400 /uL (0-900); Monocytes Percent Auto 10.2 % (3-14); Neutrophils Absolute Auto 2500 /uL (1500-7000); Neutrophils Percent Auto 66.1 % (50-75); Platelet Count 183 X10^3/uL (150-400); Red Blood Cell Count 4.25 X10^6/uL (4.0-5.2); Red Cell Distribution Width 14.7 % (11.6-14.8); White Blood Cell Count 3.8 X10^3/uL (4.5-11.0)
[2024-10-12 21:57] VITALS: BP 129/64; PULSE 94; O2SAT 95
[2024-10-12 21:59] LABS: INR 1.1 (0.9-1.3); Prothrombin Time 12.6 SECONDS (9.4-12.5)
[2024-10-12 22:00] VITALS: BP 133/66; PULSE 90; RESP 18; O2SAT 94
[2024-10-12 22:04] LABS: Influenza A - CEPHEID Flu A NEGATIVE (NEGATIVE); Influenza B - CEPHEID Flu B NEGATIVE (NEGATIVE); Respiratory Syncytial Virus Negative (Negative)
[2024-10-12 22:04] LABS: Alanine Aminotransferase 25 IU/L (<35); Albumin 3.8 g/dL (3.5-5.0); Albumin Globulin Ratio 1.5 (1.0-2.8); Alkaline Phosphatase 119 U/L (38-126); Aspartate Aminotransferase 26 IU/L (14-36); BUN Creatinine Ratio 30.6 (6-22); Bilirubin Total 0.6 mg/dL (0.2-1.3); Blood Urea Nitrogen 22 mg/dL (7-17); Calcium 9.4 mg/dL (8.4-10.2); Carbon Dioxide 24 mmol/L (22-32); Chloride 104 mmol/L (98-107); Estimated Glomerular Filt Rate > 60 mL/min (>60); Globulin 2.6 g/dL (1.7-4.1); Glucose 88 mg/dL (70-99); HEMOLYSIS < 15 (0-50); Lactate (Lactic Acid) 1.3 mmol/L (0.7-2.1); Potassium 4.2 mmol/L (3.4-5.1); Sodium 137 mmol/L (137-145); Total Protein 6.4 g/dL (6.3-8.2)
[2024-10-12 22:06] LABS: COVID-19 CEPHEID 4-PLEX PCR Negative (Negative)
[2024-10-12 22:15] LABS: NT-proBNP (BNP-Adult 18+) 99 pg/mL (<125); Troponin I < 0.012 ng/mL (0.01-0.034)
[2024-10-12 22:30] VITALS: BP 120/69; PULSE 90; O2SAT 92
[2024-10-12] MEDS: ALBUTEROL 2.5 MG/3 ML NEB (ADULT) INH (22:39)
[2024-10-12 23:00] VITALS: BP 117/66; PULSE 96; RESP 18; O2SAT 96
--- NOTE | 2024-10-12 23:19 | ED.GENADULT ---
HPI - General Adult General Chief complaint: Shortness of Breath/Dyspnea Stated complaint: Cough, Chest Pressure Time Seen by Provider: 10/12/24 22:25 Source: patient Mode of arrival: Ambulatory History of Present Illness HPI narrative: 73-year-old female with chart history of anxiety, fibromyalgia, JOSSELINE, prior Guillain-Strasburg, obesity, atrial fibrillation on Eliquis, complains of 2 days duration of dry cough with increasing shortness of breath and some chest discomfort with cough. No fevers or chills. Takes blood thinner medication Eliquis. She is not coughing up any blood. She denies leg pain or swelling symptoms. She has not tried any [id number] medications for this cough. Related Data Home Medications Medication Instructions Recorded Confirmed syringe with needle 3 mL 25 x 1 #100 ea 01/15/23 11/12/2306/16 (BD Luer-Brittany Syringe) vit C 250 mg-vit E 90 mg-zinc 40 1 tab PO BID 01/15/23 11/12/23 mg-copper 1 [id number]-ebkgev capsule (PreserVision AREDS-2) Fish oil [place] 3 (250 +50) PO 01/20/23 11/12/23 Joint movement 1 tab PO DAILY 01/20/23 11/12/[address] Iron ([place]) PO 01/20/23 11/12/23 liquid 18mg QD [address] Vitamin D3 liquid PO 01/20/23 11/12/23 1000mg QD loperamide 30 ml liquid PO 01/20/23 11/12/23 phentermine 37.5 mg tablet 37.5 mg PO DAILY 01/20/23 11/12/23 topiramate 25 mg capsule,extended 25 mg PO DAILY 01/20/23 11/12/23 release 24 hr doxylamine succinate [Sleep Aid 1 tab PO BEDTIME PRN 07/22/23 11/12/23 (doxylamine)] azithromycin 250 mg tablet 250 mg PO DIRECTED 11/12/23 11/12/23 naltrexone 50 mg tablet 50 mg PO DAILY 11/12/23 11/12/23 Previous Rx's Medication Instructions Recorded acetaminophen 325 mg tablet 650 mg (2 x 325 mg) PO TID PRN 08/24/21 fever or pain #90 tabs docusate sodium 100 mg capsule 100 mg PO BID PRN constipation #60 08/24/21 caps alendronate 70 mg tablet 70 mg PO QWEEK #12 tabs 01/15/23 apixaban 5 mg tablet (Eliquis) 5 mg PO BID #180 tabs 01/15/23 bupropion HCl 450 mg 24 hr tablet, 450 mg PO QAM #90 tabs 01/15/23 extended release cyanocobalamin (vitamin B-12) 1,000 mcg IM Q4W #3 mL 01/15/23 1,000 mcg/mL injection solution diltiazem HCl 120 mg 120 mg PO QAM #90 tabs 01/15/23 tablet,extended release 24 hr (Cardizem LA) escitalopram oxalate 20 mg tablet 20 mg PO DAILY #90 tabs 01/15/23 omeprazole 20 mg capsule,delayed 20 mg PO DAILY #90 caps 01/15/23 release lidocaine HCl 2 % mucosal solution 15 ml mucous membrane DAILY PRN 01/27/23 (Lidocaine Viscous) pain #100 mL rosuvastatin 10 mg tablet 10 mg PO DAILY #90 tabs 11/12/23 ergocalciferol (vitamin D2) 1,250 2,500 mcg (2 x 1,250 mcg (50,000 11/16/23 mcg (50,000 unit) capsule unit)) PO QWEEK #24 caps Allergies Allergy/AdvReac Type Severity Reaction Status Date / Time Iodinated Contrast Media Allergy Severe Difficulty Verified 11/12/23 12:44 Breathing methocarbamol [From Robaxin] Allergy Intermediate Rash Verified 11/12/23 12:44 ferrous sulfate AdvReac Mild Gastrointestinal Verified 11/12/23 12:44 Upset Patient History Medical History (Updated 10/12/24 @ 23:29 by Basim Hill MD) Lipomatosis dolorosa Scoliosis Fractures Positive PPD (~2006) Measles (~1957) Chicken pox (~1956) Anemia (~1990) Vertigo (~2014) History of urinary incontinence (~1987) Fecal incontinence (~1991) Hemorrhoid Vitamin D deficiency History of cervical cancer B12 deficiency Severe obesity (BMI >= 40) History of Guillain-Strasburg syndrome GERD without esophagitis Generalized anxiety disorder Depression, major, recurrent Age-related osteoporosis without current pathological fracture Chronic low back pain (~1969) Chronic anticoagulation Primary osteoarthritis involving multiple joints Mixed hyperlipidemia DDD (degenerative disc disease) Chronic anemia Depression Dry skin Easy bruisability Fatty liver JL on CPAP (~2019) Hearing impaired (~2014) Macular degeneration of both eyes RLS (restless legs syndrome) (~09/2021) Fibromyalgia (~1996) Esophageal spasm Paroxysmal A-fib Surgical History Anesthesia History of total hysterectomy History of hernia repair History of arthroplasty of right knee (08/20/21) Status post total knee replacement, right History of bladder surgery Hx of arthroscopy of right knee History of surgery Hx of abdominoplasty History of hysterectomy Hx of appendectomy (~1991) Hx of cholecystectomy (~1991) Hx of bariatric surgery (~1991) Family History Father History of heart disease Mother Stroke Brother Stroke Brother Subdural hemorrhage Family/Other ADHD Mitral regurgitation History of bipolar disorder Atrial fibrillation Mental health problem Social History details: x 3, 3 children, retired, part-time RN household members: none Smoking Status: Never smoker alcohol intake: current Smoking Status: Never smoker alcohol intake frequency: holidays/special occasions only Exam Narrative Exam Narrative: GENERAL: Well-developed patient, in mild distress. HEAD: Atraumatic. Normocephalic. EYES: Pupils equal round and reactive. Extraocular motions intact. No scleral icterus. No injection or drainage. ENT: Nose without bleeding, purulent drainage. Throat without erythema, tonsillar hypertrophy or exudate. Airway patent. NECK: Trachea midline. Non tender CARDIOVASCULAR: Regular rate and rhythm without murmurs, gallops, or rubs. RESPIRATORY: Clear to auscultation. Breath sounds equal bilaterally. No wheezes, rales, or rhonchi. GASTROINTESTINAL: Abdomen soft, non-tender, nondistended. EXTREMITIES: No edema or joint tenderness. BACK: Nontender without deformity or crepitance. No flank tenderness. NEURO: AOx3. Motor functions grossly nonfocal SKIN: No rash or erythema of visible areas Initial Vital Signs Initial Vital Signs: Vital Signs Temperature 98.4 F 10/12/24 21:12 Pulse Rate 89 10/12/24 21:12 Respiratory Rate 22 10/12/24 21:12 Blood Pressure 140/77 10/12/24 21:12 Pulse Oximetry 97 10/12/24 21:12 Oxygen Delivery Method Room Air 10/12/24 21:12 Course Orders Ordered: ED Orders 10/12/24 21:11 EKG-12 Lead Stat 10/12/24 21:17 XR chest 1V Stat Covid-19 + FLU A/B + RSV - PCR Stat Measure peak expiratory flow ONCE RT Consult Eval and Treat NOW 10/12/24 21:40 Complete Blood Count AUTO DIFF Stat Comprehensive Metabolic Panel Stat Lactate (Lactic Acid) Stat NT-proBNP (BNP-Adult 18+) Stat Prothrombin Time INR Stat Troponin I Stat Discontinued Medications Hydrocodone Bitart/Acetaminophen (Hydrocodone/Acet 5/325 Prepack) 1 bottle MISC DIRECTED ONE Stop: 10/12/24 23:25 Last Admin: 10/12/24 23:39 Dose: 1 bottle Documented By: MONROE Albuterol (Albuterol 2.5 Mg/3 Ml Neb (Adult)) 2.5 mg INH NOW ONE Stop: 10/12/24 22:33 Last Admin: 10/12/24 22:39 Dose: 2.5 mg Documented By: Albuterol (Albuterol Hfa Prepack) 1 box MISC DIRECTED ONE Stop: 10/12/24 23:25 Last Admin: 10/12/24 23:33 Dose: 1 box Documented By: Vital Signs Vital signs: Vital Signs - 8 hr 10/12/24 21:12 10/12/24 21:57 10/12/24 21:57 Temperature 98.4 F Pulse Rate 89 94 H Respiratory Rate 22 Blood Pressure 140/77 129/64 Pulse Oximetry 97 95 Oxygen Delivery Method Room Air 10/12/24 22:00 10/12/24 22:00 10/12/24 22:30 Temperature Pulse Rate 90 90 Respiratory Rate 18 Blood Pressure 133/66 Pulse Oximetry 94 92 Oxygen Delivery Method 10/12/24 22:30 10/12/24 23:00 10/12/24 23:00 Temperature Pulse Rate 96 H Respiratory Rate 18 Blood Pressure 120/69 117/66 Pulse Oximetry 96 Oxygen Delivery Method Medical Decision Making Lab Data Lab results reviewed: Yes I reviewed the patient's lab results. Lab results narrative: White blood cell count 3800, hemoglobin 13.4, platelets adequate. Basic metabolic panel unremarkable. Liver functions normal, lipase negative. Troponin negative/unmeasurable. COVID/flu/RSV swab negative. 10/12/24 21:40 10/12/24 21:40 Labs: Lab Results 10/12/24 10/12/24 Range/Units 21:17 21:40 WBC 3.8 L (4.5-11.0) X10^3/uL RBC 4.25 (4.0-5.2) X10^6/uL Hgb 13.4 (12.0-16.0) g/dL Hct 39.8 (36-46) % MCV 93.7 (80-100) fL MCH 31.5 (26-34) PG MCHC 33.6 (30-36) % RDW 14.7 (11.6-14.8) % Plt Count 183 (150-400) X10^3/uL Neut % (Auto) 66.1 (50-75) % Lymph % (Auto) 19.9 L (25-40) % [place] % (Auto) 10.2 (3-14) % Eos % (Auto) 3.3 (2-4) % Baso % (Auto) 0.5 (0-2) % Neut # (Auto) 2500 (8418-9764) /uL Lymph # (Auto) 800 L (6474-3857) /uL [place] # (Auto) 400 (0-900) /uL Eos # (Auto) 100 (0-450) /uL Baso # (Auto) 0 (0-100) /uL PT 12.6 H (9.4-12.5) SECONDS INR 1.1 (0.9-1.3) Sodium 137 (137-145) mmol/L Potassium 4.2 (3.4-5.1) mmol/L Chloride 104 (98-107) mmol/L Carbon Dioxide 24 (22-32) mmol/L BUN 22 H (7-17) mg/dL Creatinine 0.72 (0.52-1.04) mg/dL Estimated GFR > 60 (>60) mL/min BUN/Creatinine Ratio 30.6 H (6-22) Glucose 88 (70-99) mg/dL Lactate 1.3 (0.7-2.1) mmol/L Calcium 9.4 (8.4-10.2) mg/dL Total Bilirubin 0.6 (0.2-1.3) mg/dL AST 26 (14-36) IU/L ALT 25 (<35) IU/L Alkaline Phosphatase 119 (38-126) U/L Troponin I < 0.012 (0.01-0.034) ng/mL NT-Pro-B Natriuret Pep 99 (<125) pg/mL Total Protein 6.4 (6.3-8.2) g/dL Albumin 3.8 (3.5-5.0) g/dL Globulin 2.6 (1.7-4.1) g/dL Albumin/Globulin Ratio 1.5 (1.0-2.8) SARS-CoV-2 (PCR) Negative (Negative) Influenza A (RT-PCR) Flu a negative (NEGATIVE) Influenza B (RT-PCR) Flu b negative (NEGATIVE) RSV (PCR) Negative (Negative) Imaging Data Chest x-ray: Radiologist's Impression: [address] [address] XRay Report Signed Patient: Haleigh Parsons MR#: [id number] : 1950 Acct:[id number] Age/Sex: 73 / F Date of Service: 10/12/24 Loc: ED Accession Number: [id number] Procedure: XR chest 1V Ordering Provider: Basim Hill MD PROCEDURE: XR CHEST 1V INDICATIONS: Shortness of breath TECHNIQUE: One view of the chest was acquired. COMPARISON: [facility], CT, CT ABDOMEN PELVIS WITHOUT CONTRAST, 04/01/2024, 15:20. [facility], CR, XR CHEST 1V, 03/25/2023, 23:52. [facility], CR, XR CHEST 2V, 05/14/2022, 17:38. FINDINGS: Surgical changes and devices: Postsurgical changes in the left upper quadrant. Lungs and pleura: Lungs are clear. No pleural effusions or pneumothorax. Mediastinum: Mediastinal contours appear normal. Heart size is normal. Bones and chest wall: No suspicious bony lesions. Overlying soft tissues appear unremarkable. IMPRESSION: No acute cardiopulmonary abnormality is seen. Dictated by: Armando Marcelo M.D. on 10/12/2024 at 22:17 Approved by: Armando Marcelo M.D. on 10/12/2024 at 22:18 ECG Data Attestation: I personally reviewed and interpreted this ECG as follows: Interpretation: Normal sinus rhythm with rate of 94, no obvious ST segment elevation or depression changes. T-wave inversions lead 3 but upright in contiguous inferior leads 2 and F. PA 192, QRS 82, QTC 415. MDM Narrative Medical decision making narrative: 73-year-old female with history of fibromyalgia and anxiety, on Eliquis for AFib, has 2 days duration of cough, chest pain with cough only, afebrile, sirs screen negative, no oxygen requirement, clear lungs on examination. Chest x-ray negative. EKG without obvious ischemic changes. Troponin negative ordered from triage. Doubt ACS at this time. COVID flu RSV negative. Other screening labs unremarkable. Albuterol neb, felt maybe a little bit better, seems interested in albuterol. We will send with home pack albuterol/spacer, 2 puffs four times daily for this next week and then as needed. No indication for antibiotics at this time. Home pack hydrocodone/acetaminophen for pain and antitussive effect, no refills or prescription just home pack. Recheck advised with the PCP in the next couple of days if not improving. Return precautions discussed. Discharged home. Discharge Plan Departure Patient Disposition: Home Clinical Impression: Upper respiratory infection, Chest pain Activity Restrictions/Additional Instructions: Recent cough, chest pain with cough, lungs clear on examination, no oxygen requirement, chest x-ray showed no acute changes, swab for COVID and flu and RSV were negative. Breathing treatment given. Discharge with albuterol/spacer 2 puffs 4 times daily for this next week and then as needed. Consider use of hydrocodone/acetaminophen for pain control and also as a cough suppressant for the next day or so if needed, home pack dispensed. Recheck with your regular doctor advised if not improving in the next couple of days. Continue taking your chronic medications. Drink plenty of fluids. Return to this/nearest emergency department for any change worsening symptoms or any concerns prior. Prescriptions: No Action Joint movement 1 tab PO DAILY Rx Instructions: Joint Movement (Glucosamine 2,000 + Chondrointin 1200 + MSM 500 + Vit D3 10mcg, + Hydroluronic Acid 10 mg) Nature[address] Iron (Glyconade) liquid 18mg QD PO Rx Instructions: Nature[address] Way Iron ([place]) liquid 18mg QD Fish oil [place] 3 (250 +50) PO Rx Instructions: Fish oil [place] 3 (250 +50) Nature[address] Vitamin D3 liquid 1000mg QD PO Rx Instructions: Nature?s Way Vitamin D3 liquid 1000mg QD loperamide 30 ml liquid PO Rx Instructions: loperamide is 30 ml liquid phentermine 37.5 mg tablet 37.5 mg PO DAILY Rx Instructions: must administer 30 minutes before or 1-2 hours after breakfast topiramate 25 mg capsule,extended release 24hr 25 mg PO DAILY lidocaine HCl [Lidocaine Viscous] 2 % solution 15 ml mucous membrane DAILY PRN (Reason: pain) Qty: 100 1RF Rx Instructions: Lidocaine HCL 2% Viscous 100ml 15ml PRN choking/chest pain related to a faulty mechanism on my esophagus. ergocalciferol (vitamin D2) 1,250 mcg (50,000 unit) capsule 2,500 mcg PO QWEEK Qty: 24 3RF Rx Instructions: Dose increased to ergocalciferol 2500 mcg weekly. azithromycin 250 mg tablet 250 mg PO DIRECTED naltrexone 50 mg tablet 50 mg PO DAILY Rx Instructions: 0.1 ml daily rosuvastatin 10 mg tablet 10 mg PO DAILY Qty: 90 3RF (DME) BD Luer-Brittany Syringe 3 mL 25 x 1 1/2 syringe See Rx Instructions .ROUTE .MEDSUPPLY Qty: 100 Patient Comments: [NO ORIGINAL SIG] Rx Instructions: As directed for b12 injections PreserVision AREDS-2 250-90-40-1 mg capsule 1 tab PO BID Eliquis 5 mg tablet 5 mg PO BID Qty: 180 3RF Cardizem LA 120 mg tablet extended release 24 hr 120 mg PO QAM Qty: 90 3RF bupropion HCl 450 mg tablet extended release 24 hr 450 mg PO QAM Qty: 90 3RF escitalopram oxalate 20 mg tablet 20 mg PO DAILY Qty: 90 3RF cyanocobalamin (vitamin B-12) 1,000 mcg/mL solution 1,000 mcg IM Q4W Qty: 3 3RF alendronate 70 mg tablet 70 mg PO QWEEK Qty: 12 3RF omeprazole 20 mg capsule,delayed release(DR/EC) 20 mg PO DAILY Qty: 90 3RF doxylamine succinate [Sleep Aid (doxylamine)] 1 tab PO BEDTIME PRN acetaminophen 325 mg Tablet 650 mg PO TID PRN (Reason: fever or pain) Qty: 90 2RF docusate sodium 100 mg Capsule 100 mg PO BID PRN (Reason: constipation) Qty: 60 2RF Referrals: Yamilka Oneal MD [Primary Care Provider] - Stand Alone Forms: Patient Portal/API/Survey
[2024-10-12] MEDS: ALBUTEROL HFA PREPACK 1 BOX MISC (23:33)
[2024-10-12] MEDS: HYDROCODONE/ACET 5/325 PREPACK 1 BOTTLE MISC (23:39)
== END 2024-10-12 23:50 | disposition home or self-care (01) ==
PROVIDERS: Emergency Provider Emergency Medicine; PCP Family Medicine
DX: J06.9 Acute upper respiratory infection, unspecified (principal); R07.9 Chest pain, unspecified; I48.91 Unspecified atrial fibrillation; Z79.01 Long term (current) use of anticoagulants
CPT/HCPCS: 0241U; 36415; 71045; 80053; 83605; 83880; 84484; 85025; 85610; 93005; 94640; 99283; 99284; J7613

== ENCOUNTER 2025-03-03 00:12 | Observation (INO) | payer BC, SELFPAY ==
[2023-03-26 12:39] VITALS: BMI 42.1
[2025-03-03] VITALS (42 sets, daily range): BP systolic 78–141; BP diastolic 48–96; PULSE 85–158; RESP 10–33; TEMP 36.4–36.6; O2SAT 90–100; BMI 29.0; BMI 30.7
--- NOTE | 2025-03-03 00:21 | EKG_ITS ---
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
--- NOTE | 2025-03-03 00:21 | DI.RAD.S_ITS ---
PROCEDURE: XR CHEST 1V INDICATIONS: Chest Pain TECHNIQUE: One view of the chest was acquired. COMPARISON: [facility], CR, XR CHEST 1V, 10/12/2024, 21:14. FINDINGS: Surgical changes and devices: None. Lungs and pleura: Lungs are clear. No pleural effusions or pneumothorax. Mediastinum: Mediastinal contours appear normal. Heart size is normal. Bones and chest wall: No suspicious bony lesions. Overlying soft tissues appear unremarkable. IMPRESSION: No acute cardiopulmonary pathology. Dictated by: Steve Chavez M.D. on 03/03/2025 at 0:42 Approved by: Steve Chavez M.D. on 03/03/2025 at 0:42
[2025-03-03 00:49] LABS: Add Manual Diff / Slide Review NO; Hematocrit 38.7 % (36-46); Hemoglobin 13.0 g/dL (12.0-16.0); Lymphocytes Absolute Auto 1400 /uL (1100-4500); Mean Corpuscular HGB Conc 33.7 % (30-36); Mean Corpuscular Hemoglobin 33.5 PG (26-34); Mean Corpuscular Volume 99.5 fL (80-100); Platelet Count 191 X10^3/uL (150-400)
[2025-03-03 00:54] LABS: INR 1.0 (0.9-1.3); Prothrombin Time 11.5 SECONDS (9.4-12.5)
[2025-03-03 00:57] LABS: Alanine Aminotransferase 22 IU/L (<35); Albumin 3.6 g/dL (3.5-5.0); Albumin Globulin Ratio 1.3 (1.0-2.8); Alkaline Phosphatase 119 U/L (38-126); Blood Urea Nitrogen 23 mg/dL (7-17); Calcium 8.9 mg/dL (8.4-10.2); Carbon Dioxide 25 mmol/L (22-32); Chloride 105 mmol/L (98-107); Creatine Kinase 38 U/L (30-135); Estimated Glomerular Filt Rate 58 mL/min (>60); Globulin 2.8 g/dL (1.7-4.1); Glucose 91 mg/dL (70-99); HEMOLYSIS < 15 (0-50); Lipase 183 U/L (23-300); Magnesium 1.9 mg/dL (1.6-2.3); PTT Partial Thromboplastin Tim 46 SECONDS (25.1-36.5); Potassium 4.0 mmol/L (3.4-5.1); Sodium 136 mmol/L (137-145); Total Protein 6.4 g/dL (6.3-8.2)
[2025-03-03 01:08] LABS: NT-proBNP (BNP-Adult 18+) 314 pg/mL (<125); Troponin I < 0.012 ng/mL (0.01-0.034)
--- NOTE | 2025-03-03 01:20 | ED.ARRPALP ---
HPI - Arrhythmia/Palpitations General Chief Complaint: Arrhythmia/Palpitations Stated Complaint: AFIB, SOB, Rapid Time Seen by Provider: 03/03/25 01:16 Source: patient Mode of arrival: Ambulatory History of Present Illness HPI narrative: 74-year-old female with history of paroxysmal atrial fibrillation 1st diagnosed 13 years ago, last episode 10 years ago, prior IV medications and discharged home, no shocks, believes that she might have an allergy to diltiazem, unsure about metoprolol, thinks that she has had metoprolol before. Takes Eliquis chronic anticoagulation for the last 10 years, denies recent missed doses. Last night 11:15 p.m. while watching TV she felt that she had fast irregular heartbeat sensation. No chest pain or shortness of breath. Denies syncope or presyncope. Denies nausea or vomiting. Denies diaphoresis. No focal weakness to face arm or leg. Related Data Home Medications ?Medication ?Instructions ?Recorded ?Confirmed syringe with needle 3 mL 25 x 1 #100 ea 01/15/23 11/12/2306/16 (BD Luer-Brittany Syringe) vit C 250 mg-vit E 90 mg-zinc 40 1 tab PO BID 01/15/23 11/12/23 mg-copper 1 pm-vhkesj-adssvs capsule (PreserVision AREDS-2) Fish oil [place] 3 (250 +50) PO 01/20/23 11/12/23 Joint movement 1 tab PO DAILY 01/20/23 11/12/[address] Iron ([place]) PO 01/20/23 11/12/23 liquid 18mg QD [address] Vitamin D3 liquid PO 01/20/23 11/12/23 1000mg QD loperamide 30 ml liquid PO 01/20/23 11/12/23 phentermine 37.5 mg tablet 37.5 mg PO DAILY 01/20/23 11/12/23 topiramate 25 mg capsule,extended 25 mg PO DAILY 01/20/23 11/12/23 release 24 hr doxylamine succinate [Sleep Aid 1 tab PO BEDTIME PRN 07/22/23 11/12/23 (doxylamine)] azithromycin 250 mg tablet 250 mg PO DIRECTED 11/12/23 11/12/23 naltrexone 50 mg tablet 50 mg PO DAILY 11/12/23 11/12/23 Previous Rx's ?Medication ?Instructions ?Recorded acetaminophen 325 mg tablet 650 mg (2 x 325 mg) PO TID PRN 08/24/21 fever or pain #90 tabs docusate sodium 100 mg capsule 100 mg PO BID PRN constipation #60 08/24/21 caps alendronate 70 mg tablet 70 mg PO QWEEK #12 tabs 01/15/23 apixaban 5 mg tablet (Eliquis) 5 mg PO BID #180 tabs 01/15/23 bupropion HCl 450 mg 24 hr tablet, 450 mg PO QAM #90 tabs 01/15/23 extended release cyanocobalamin (vitamin B-12) 1,000 mcg IM Q4W #3 mL 01/15/23 1,000 mcg/mL injection solution diltiazem HCl 120 mg 120 mg PO QAM #90 tabs 01/15/23 tablet,extended release 24 hr (Cardizem [place]) escitalopram oxalate 20 mg tablet 20 mg PO DAILY #90 tabs 01/15/23 omeprazole 20 mg capsule,delayed 20 mg PO DAILY #90 caps 01/15/23 release lidocaine HCl 2 % mucosal solution 15 ml mucous membrane DAILY PRN 01/27/23 (Lidocaine Viscous) pain #100 mL rosuvastatin 10 mg tablet 10 mg PO DAILY #90 tabs 11/12/23 ergocalciferol (vitamin D2) 1,250 2,500 mcg (2 x 1,250 mcg (50,000 10/17/24 mcg (50,000 unit) capsule unit)) PO QWEEK #24 caps Allergies Allergy/AdvReac Type Severity Reaction Status Date / Time Iodinated Contrast Media Allergy Severe Difficulty Verified 11/12/23 12:44 Breathing methocarbamol (From Robaxin) Allergy Intermediate Rash Verified 11/12/23 12:44 ferrous sulfate AdvReac Mild Gastrointestinal Verified 11/12/23 12:44 Upset Patient History Medical History (Updated 03/03/25 @ 04:05 by Basim Hill MD) Lipomatosis dolorosa Scoliosis Fractures Positive PPD (~2006) Measles (~1957) Chicken pox (~1956) Anemia (~1990) Vertigo (~2014) History of urinary incontinence (~1987) Fecal incontinence (~1991) Hemorrhoid Vitamin D deficiency History of cervical cancer B12 deficiency Severe obesity (BMI >= 40) History of Guillain-[place] syndrome GERD without esophagitis Generalized anxiety disorder Depression, major, recurrent Age-related osteoporosis without current pathological fracture Chronic low back pain (~1969) Chronic anticoagulation Primary osteoarthritis involving multiple joints Mixed hyperlipidemia DDD (degenerative disc disease) Chronic anemia Depression Dry skin Easy bruisability Fatty liver JL on CPAP (~2019) Hearing impaired (~2014) Macular degeneration of both eyes RLS (restless legs syndrome) (~09/2021) Fibromyalgia (~1996) Esophageal spasm Paroxysmal A-fib Surgical History Anesthesia History of total hysterectomy History of hernia repair History of arthroplasty of right knee (08/20/21) Status post total knee replacement, right History of bladder surgery Hx of arthroscopy of right knee History of surgery Hx of abdominoplasty History of hysterectomy Hx of appendectomy (~1991) Hx of cholecystectomy (~1991) Hx of bariatric surgery (~1991) Family History Father History of heart disease Mother Stroke Brother Stroke Brother Subdural hemorrhage Family/Other ADHD Mitral regurgitation History of bipolar disorder Atrial fibrillation Mental health problem Social History details: x 3, 3 children, retired, part-time RN household members: none Smoking Status: Never smoker alcohol intake: current Smoking Status: Never smoker alcohol intake frequency: holidays/special occasions only Exam Narrative Exam Narrative: GENERAL: Well-developed patient, in mild distress. HEAD: Atraumatic. Normocephalic. EYES: Pupils equal round and reactive. Extraocular motions intact. No scleral icterus. No injection or drainage. ENT: Nose without bleeding, purulent drainage. Throat without erythema, tonsillar hypertrophy or exudate. Airway patent. NECK: Trachea midline. Non tender CARDIOVASCULAR: Fast rate unclear rhythm, without murmurs, gallops, or rubs. RESPIRATORY: Clear to auscultation. Breath sounds equal bilaterally. No wheezes, rales, or rhonchi. GASTROINTESTINAL: Abdomen soft, non-tender, nondistended. EXTREMITIES: No edema or joint tenderness. BACK: Nontender without deformity or crepitance. No flank tenderness. NEURO: AOx3. Motor functions grossly nonfocal. SKIN: No rash or erythema of visible areas Initial Vital Signs Initial Vital Signs: Vital Signs Temperature 97.5 F L 03/03/25 00:38 Pulse Rate 145 H 03/03/25 00:38 Respiratory Rate 19 03/03/25 00:38 Blood Pressure 141/96 H 03/03/25 00:38 Pulse Oximetry 100 03/03/25 00:38 Oxygen Delivery Method Room Air 03/03/25 00:38 Course Orders Ordered: ED Orders 03/03/25 00:21 XR chest 1V Stat EKG-12 Lead Stat 03/03/25 00:35 Complete Blood Count AUTO DIFF Stat Comprehensive Metabolic Panel Stat Lipase Stat Magnesium Stat NT-proBNP (BNP-Adult 18+) Stat PTT Partial Thromboplastin Graeme Stat Prothrombin Time INR Stat Troponin & CK Cardiac Panel Stat Acetaminophen (Acetaminophen 325 Mg Tablet) 1,000 mg PO Q6H PRN PRN Reason: Fever/Mild Pain (1-3) Apixaban (Apixaban 5 Mg Tablet) 5 mg PO BID JENNIFER Amiodarone HCl/Dextrose (Nexterone) 360 mg in 200 mls @ 33.333 mls/hr IV NOW ONE; Protocol Stop: 03/03/25 11:17 Amiodarone HCl/Dextrose (Nexterone) 360 mg in 200 mls @ 16.7 mls/hr IV CONT JENNIFER; Protocol Stop: 03/03/25 17:29 Amiodarone HCl/Dextrose (Nexterone) 180 mg in 100 mls @ 16.7 mls/hr IV CONT JENNIFER; Protocol Stop: 03/03/25 11:30 Amiodarone HCl/Dextrose (Nexterone) 150 mg in 100 mls @ 600 mls/hr IV NOW ONE; Protocol Stop: 03/03/25 05:27 Naloxone HCl (Naloxone 0.4 Mg/Ml Vial) 0.2 mg IV Q2MIN PRN PRN Reason: Opiate Reversal Pantoprazole Sodium (Pantoprazole Dr 20 Mg Tablet) 20 mg PO 0600 JENNIFER Sodium Chloride (Sodium Chloride 0.9% Flush) 10 ml IV PRN PRN PRN Reason: Flush Discontinued Medications Aspirin (Aspirin 81 Mg Chew Tab) 324 mg PO NOW ONE Stop: 03/03/25 00:22 Last Admin: 03/03/25 01:57 Dose: Not Given Documented By: KW Digoxin (Digoxin 500 Mcg/2 Ml Ampul) 500 mcg IV NOW ONE Stop: 03/03/25 03:05 Last Admin: 03/03/25 03:13 Dose: 500 mcg Documented By: DAVID Sodium Chloride (Normal Saline 0.9%) 1,000 mls @ 1,000 mls/hr IV BOLUS ONE Stop: 03/03/25 03:15 Last Infusion: 03/03/25 03:02 Dose: Infused Documented By: Admin: 03/03/25 02:22 Dose: 1,000 mls/hr Documented By: MANA Metoprolol Tartrate (Metoprolol Tartrate 5 Mg/5 Ml Inj) 5 mg IV Q5M [facility] Stop: 03/03/25 01:56 Last Admin: 03/03/25 03:41 Dose: Not Given Documented By: Admin: 03/03/25 03:41 Dose: Not Given Documented By: Admin: 03/03/25 01:52 Dose: 5 mg Documented By: MANA Non-Formulary Medication (Omeprazole) 20 mg PO DAILY [facility] Vital Signs Vital signs: Vital Signs - 8 hr 03/03/25 00:38 03/03/25 01:20 03/03/25 01:27 Temperature 97.5 F L Pulse Rate 145 H 156 H 148 H Respiratory Rate 19 19 19 Blood Pressure 141/96 H Pulse Oximetry 100 96 95 Oxygen Delivery Method Room Air 03/03/25 01:27 03/03/25 01:30 03/03/25 01:35 Temperature Pulse Rate 155 H 158 H Respiratory Rate 16 17 Blood Pressure 127/72 Pulse Oximetry 95 95 Oxygen Delivery Method 03/03/25 01:40 03/03/25 01:45 03/03/25 01:50 Temperature Pulse Rate 153 H 149 H 152 H Respiratory Rate 18 13 15 Blood Pressure Pulse Oximetry 96 96 96 Oxygen Delivery Method 03/03/25 01:54 03/03/25 01:54 03/03/25 01:55 Temperature Pulse Rate 152 H 153 H Respiratory Rate 19 14 Blood Pressure 119/53 L Pulse Oximetry 95 94 Oxygen Delivery Method 03/03/25 02:00 03/03/25 02:00 03/03/25 02:05 Temperature Pulse Rate 134 H 129 H Respiratory Rate 12 20 Blood Pressure 78/48 L Pulse Oximetry 94 93 Oxygen Delivery Method 03/03/25 02:07 03/03/25 02:10 03/03/25 02:15 Temperature Pulse Rate 131 H 133 H 120 H Respiratory Rate 14 11 L Blood Pressure 100/65 Pulse Oximetry 90 L 94 Oxygen Delivery Method 03/03/25 02:20 03/03/25 02:25 03/03/25 02:25 Temperature Pulse Rate 113 H 116 H 129 H Respiratory Rate 11 L 14 Blood Pressure 100/60 Pulse Oximetry 94 95 Oxygen Delivery Method 03/03/25 02:30 03/03/25 02:35 03/03/25 02:40 Temperature Pulse Rate 131 H 132 H 141 H Respiratory Rate 12 12 33 H Blood Pressure Pulse Oximetry 95 95 97 Oxygen Delivery Method 03/03/25 02:44 03/03/25 02:45 03/03/25 02:50 Temperature Pulse Rate 134 H 134 H 138 H Respiratory Rate 11 L 10 L Blood Pressure 100/60 Pulse Oximetry 95 95 Oxygen Delivery Method 03/03/25 02:55 03/03/25 02:56 03/03/25 02:56 Temperature Pulse Rate 142 H 139 H Respiratory Rate 16 19 Blood Pressure 92/62 Pulse Oximetry 97 97 Oxygen Delivery Method 03/03/25 03:03 03/03/25 03:15 03/03/25 03:15 Temperature Pulse Rate 142 H 146 H Respiratory Rate 14 Blood Pressure 89/59 L Pulse Oximetry 96 Oxygen Delivery Method 03/03/25 03:30 03/03/25 04:00 Temperature Pulse Rate 146 H 150 H Respiratory Rate 14 12 Blood Pressure Pulse Oximetry 95 94 Oxygen Delivery Method MDM - Arrhythmia/Palpitations Lab Data Attestation: I reviewed the patient's lab results. Lab results narrative: White blood cell count 4700, hemoglobin 13, platelets adequate. Glucose 91. Renal function unremarkable, normal serum CO2 and potassium. Sodium 136 slightly low. LFTs and lipase normal. Troponin negative/unmeasurable. 03/03/25 00:35 03/03/25 00:35 Labs: Lab Results 03/03/25 Range/Units 00:35 WBC 4.7 (4.5-11.0) X10^3/uL RBC 3.89 L (4.0-5.2) X10^6/uL Hgb 13.0 (12.0-16.0) g/dL Hct 38.7 (36-46) % MCV 99.5 (80-100) fL MCH 33.5 (26-34) PG MCHC 33.7 (30-36) % RDW 13.4 (11.6-14.8) % Plt Count 191 (150-400) X10^3/uL Neut % (Auto) 59.2 (50-75) % Lymph % (Auto) 29.4 (25-40) % [place] % (Auto) 8.7 (3-14) % Eos % (Auto) 2.3 (2-4) % Baso % (Auto) 0.4 (0-2) % Neut # (Auto) 2800 (9953-5035) /uL Lymph # (Auto) 1400 (6355-6519) /uL [place] # (Auto) 400 (0-900) /uL Eos # (Auto) 100 (0-450) /uL Baso # (Auto) 0 (0-100) /uL PT 11.5 (9.4-12.5) SECONDS INR 1.0 (0.9-1.3) APTT 46 H (25.1-36.5) SECONDS Sodium 136 L (137-145) mmol/L Potassium 4.0 (3.4-5.1) mmol/L Chloride 105 (98-107) mmol/L Carbon Dioxide 25 (22-32) mmol/L BUN 23 H (7-17) mg/dL Creatinine 1.03 (0.52-1.04) mg/dL Estimated GFR 58 L (>60) mL/min BUN/Creatinine Ratio 22.3 H (6-22) Glucose 91 (70-99) mg/dL Calcium 8.9 (8.4-10.2) mg/dL Magnesium 1.9 (1.6-2.3) mg/dL Total Bilirubin 1.0 (0.2-1.3) mg/dL AST 29 (14-36) IU/L ALT 22 (<35) IU/L Alkaline Phosphatase 119 (38-126) U/L Total Creatine Kinase 38 (30-135) U/L Troponin I < 0.012 (0.01-0.034) ng/mL NT-Pro-B Natriuret Pep 314 H (<125) pg/mL Total Protein 6.4 (6.3-8.2) g/dL Albumin 3.6 (3.5-5.0) g/dL Globulin 2.8 (1.7-4.1) g/dL Albumin/Globulin Ratio 1.3 (1.0-2.8) Lipase 183 (23-300) U/L ECG Data Attestation: I personally reviewed and interpreted this ECG as follows: Interpretation: 0028, sinus tachycardia with rate of 147, no obvious ST segment elevation or depression changes. TN 164, QRS 78, QTC 413. MDM Narrative Medical decision making narrative: History of atrial fibrillation paroxysmal, on Eliquis chronic anticoagulation without missed doses known. EKG shows atrial fibrillation with rapid ventricular response, 147 beats per minute. Normotensive. Offered cardioversion, patient declines. She would like a trial of IV medications to slow her heart rate down, and states that she has converted with this approach in the past. For now does not want to be shocked. Some kind of intolerance to diltiazem recalled, none to metoprolol. IV metoprolol 5 mg Q 5 minutes as needed for rate control. EKG AFib RVR 147 beats per minute. Chest x-ray no acute changes. See radiology report. Initial lab data: White blood cell count 4700, hemoglobin 13, platelets adequate. Glucose 91. Renal function unremarkable, normal serum CO2 and potassium. Sodium 136 slightly low. LFTs and lipase normal. Troponin negative/unmeasurable. Metoprolol 5 mg IV 1st dose caused of reduction and blood pressure, IV fluid bolus. Potassium adequate. We will give IV digoxin 500 mcg bolus. Consider admission for further rate control. Patient does not want cardioversion at this point, although she is anticoagulated taking Eliquis without reported missed doses. We will contact hospitalist Case discussed with hospitalist Dr. Ball who accepts patient for admission Critical Care Time Critical Care Time Critical Care Time: Yes Total Critical Care Time: 35 Attestation: The high probability of a clinically significant, sudden or life threatening deterioration of the [cardiopulmonary] system(s) required my full and direct attention, intervention and personal management. The aggregate critical care time was [35] minutes. This time is in addition to time spent performing reported procedures but includes the following: [x] Data Review and interpretation [x] Patient assessment and monitoring of vital signs [x] Documentation [x] Medication orders and management Discharge Plan Departure Patient Disposition: Admitted as Observation Clinical Impression: Paroxysmal A-fib, Palpitations Admit Date/Time: 03/03/25 04:08 Admit Provider: Reno Brink
[2025-03-03] MEDS: METOPROLOL TARTRATE 5 MG/5 ML INJ IV (01:52)
[2025-03-03] MEDS: SODIUM CHLORIDE 0.9% 1,000 ML 1000 ML IV (02:22)
[2025-03-03] MEDS: DIGOXIN 500 MCG/2 ML AMPUL IV (03:13)
[2025-03-03] MEDS: AMIODARONE 150 MG/100 ML PIGGYBACK 600 MG IV (05:47)
[2025-03-03] MEDS: AMIODARONE 360 MG/200 ML PIGGYBACK 33.33 MG IV (05:53)
[2025-03-03 06:26] LABS: MRSA (Nasal) PCR NOT DETECTED (Not Detect)
--- NOTE | 2025-03-03 06:30 | PM.HP.1 ---
History of Present Illness History of Present Illness Date Patient Seen: 03/03/25 Time Patient Seen: 05:30 Chief complaint: AFIB, SOB, Rapid Narrative: 74 y/o with PMH of atrial fibrillation, presented with palpitations, generalized weakness, shortness of breath while having a rapid A-fib ~ 140-150. She was giving conflicting nformations about what medications she used to be on, current ones, side effects etc. Apparently seen by supervising broker 3 months ago. She mentioned intolerance of CCB and BB and prior to visit she was on rate control. In the ED she refused cardizem drip. IV metoprolol caused significant hypotension. She refused DCCV. Additional workup not suggestive of ACS or PNA. REPLACED BY [facility] Medical History Lipomatosis dolorosa Scoliosis Fractures Positive PPD (~2006) Measles (~1957) Chicken pox (~1956) Anemia (~1990) Vertigo (~2014) History of urinary incontinence (~1987) Fecal incontinence (~1991) Hemorrhoid Vitamin D deficiency History of cervical cancer B12 deficiency Severe obesity (BMI >= 40) History of Guillain-[place] syndrome GERD without esophagitis Generalized anxiety disorder Depression, major, recurrent Age-related osteoporosis without current pathological fracture Chronic low back pain (~1969) Chronic anticoagulation Primary osteoarthritis involving multiple joints Mixed hyperlipidemia DDD (degenerative disc disease) Chronic anemia Depression Dry skin Easy bruisability Fatty liver JL on CPAP (~2019) Hearing impaired (~2014) Macular degeneration of both eyes RLS (restless legs syndrome) (~09/2021) Fibromyalgia (~1996) Esophageal spasm Paroxysmal A-fib Surgical History Anesthesia History of total hysterectomy History of hernia repair History of arthroplasty of right knee (08/20/21) Status post total knee replacement, right History of bladder surgery Hx of arthroscopy of right knee History of surgery Hx of abdominoplasty History of hysterectomy Hx of appendectomy (~1991) Hx of cholecystectomy (~1991) Hx of bariatric surgery (~1991) Family History Father History of heart disease Mother Stroke Brother Stroke Brother Subdural hemorrhage Family/Other ADHD Mitral regurgitation History of bipolar disorder Atrial fibrillation Mental health problem Social History details: x 3, 3 children, retired, part-time RN household members: none Smoking Status: Never smoker alcohol intake: current Meds Home Medications and Allergies Home Medications ?Medication ?Instructions ?Recorded ?Confirmed ?Type acetaminophen 325 mg tablet 650 mg (2 x 325 mg) PO TID PRN 08/24/21 11/12/23 Rx fever or pain #90 tabs docusate sodium 100 mg capsule 100 mg PO BID PRN constipation #60 08/24/21 11/12/23 Rx caps alendronate 70 mg tablet 70 mg PO QWEEK #12 tabs 01/15/23 11/12/23 Rx apixaban 5 mg tablet (Eliquis) 5 mg PO BID #180 tabs 01/15/23 11/12/23 Rx bupropion HCl 450 mg 24 hr tablet, 450 mg PO QAM #90 tabs 01/15/23 11/12/23 Rx extended release cyanocobalamin (vitamin B-12) 1,000 mcg IM Q4W #3 mL 01/15/23 11/12/23 Rx 1,000 mcg/mL injection solution diltiazem HCl 120 mg 120 mg PO QAM #90 tabs 01/15/23 11/12/23 Rx tablet,extended release 24 hr (Cardizem LA) escitalopram oxalate 20 mg tablet 20 mg PO DAILY #90 tabs 01/15/23 11/12/23 Rx omeprazole 20 mg capsule,delayed 20 mg PO DAILY #90 caps 01/15/23 11/12/23 Rx release syringe with needle 3 mL 25 x 1 #100 ea 01/15/23 11/12/23 History 1/2 (BD Luer-Brittany Syringe) vit C 250 mg-vit E 90 mg-zinc 40 1 tab PO BID 01/15/23 11/12/23 History mg-copper 1 [id number] capsule (PreserVision AREDS-2) Fish oil [place] 3 (250 +50) PO 01/20/23 11/12/23 History Joint movement 1 tab PO DAILY 01/20/23 11/12/[address] Iron ([place]) PO 01/20/23 11/12/23 History liquid 18mg QD Nature[address] Vitamin D3 liquid PO 01/20/23 11/12/23 History 1000mg QD loperamide 30 ml liquid PO 01/20/23 11/12/23 History phentermine 37.5 mg tablet 37.5 mg PO DAILY 01/20/23 11/12/23 History topiramate 25 mg capsule,extended 25 mg PO DAILY 01/20/23 11/12/23 History release 24 hr lidocaine HCl 2 % mucosal solution 15 ml mucous membrane DAILY PRN 01/27/23 11/12/23 Rx (Lidocaine Viscous) pain #100 mL doxylamine succinate [Sleep Aid 1 tab PO BEDTIME PRN 07/22/23 11/12/23 History (doxylamine)] azithromycin 250 mg tablet 250 mg PO DIRECTED 11/12/23 11/12/23 History naltrexone 50 mg tablet 50 mg PO DAILY 11/12/23 11/12/23 History rosuvastatin 10 mg tablet 10 mg PO DAILY #90 tabs 11/12/23 11/12/23 Rx ergocalciferol (vitamin D2) 1,250 2,500 mcg (2 x 1,250 mcg (50,000 10/17/24 Rx mcg (50,000 unit) capsule unit)) PO QWEEK #24 caps Allergies Allergy/AdvReac Type Severity Reaction Status Date / Time Iodinated Contrast Media Allergy Severe Difficulty Verified 11/12/23 12:44 Breathing methocarbamol (From Robaxin) Allergy Intermediate Rash Verified 11/12/23 12:44 ferrous sulfate AdvReac Mild Gastrointestinal Verified 11/12/23 12:44 Upset Review of Systems Review of Systems Narrative: General - malaise, generalized weakness, w/o fever or chills RS - short of breath CVS - palpitations, w/o chest pain GI - nausea, heartburn Exam Vital Signs (past 8 hours): - 03/03/25 00:38 03/03/25 01:20 03/03/25 01:27 Temperature 97.5 F L Pulse Rate 145 H 156 H 148 H Respiratory Rate 19 19 19 Blood Pressure 141/96 H Pulse Oximetry 100 96 95 Oxygen Delivery Method Room Air 03/03/25 01:27 03/03/25 01:30 03/03/25 01:35 Temperature Pulse Rate 155 H 158 H Respiratory Rate 16 17 Blood Pressure 127/72 Pulse Oximetry 95 95 Oxygen Delivery Method 03/03/25 01:40 03/03/25 01:45 03/03/25 01:50 Temperature Pulse Rate 153 H 149 H 152 H Respiratory Rate 18 13 15 Blood Pressure Pulse Oximetry 96 96 96 Oxygen Delivery Method 03/03/25 01:54 03/03/25 01:54 03/03/25 01:55 Temperature Pulse Rate 152 H 153 H Respiratory Rate 19 14 Blood Pressure 119/53 L Pulse Oximetry 95 94 Oxygen Delivery Method 03/03/25 02:00 03/03/25 02:00 03/03/25 02:05 Temperature Pulse Rate 134 H 129 H Respiratory Rate 12 20 Blood Pressure 78/48 L Pulse Oximetry 94 93 Oxygen Delivery Method 03/03/25 02:07 03/03/25 02:10 03/03/25 02:15 Temperature Pulse Rate 131 H 133 H 120 H Respiratory Rate 14 11 L Blood Pressure 100/65 Pulse Oximetry 90 L 94 Oxygen Delivery Method 03/03/25 02:20 03/03/25 02:25 03/03/25 02:25 Temperature Pulse Rate 113 H 116 H 129 H Respiratory Rate 11 L 14 Blood Pressure 100/60 Pulse Oximetry 94 95 Oxygen Delivery Method 03/03/25 02:30 03/03/25 02:35 03/03/25 02:40 Temperature Pulse Rate 131 H 132 H 141 H Respiratory Rate 12 12 33 H Blood Pressure Pulse Oximetry 95 95 97 Oxygen Delivery Method 03/03/25 02:44 03/03/25 02:45 03/03/25 02:50 Temperature Pulse Rate 134 H 134 H 138 H Respiratory Rate 11 L 10 L Blood Pressure 100/60 Pulse Oximetry 95 95 Oxygen Delivery Method 03/03/25 02:55 03/03/25 02:56 03/03/25 02:56 Temperature Pulse Rate 142 H 139 H Respiratory Rate 16 19 Blood Pressure 92/62 Pulse Oximetry 97 97 Oxygen Delivery Method 03/03/25 03:03 03/03/25 03:15 03/03/25 03:15 Temperature Pulse Rate 142 H 146 H Respiratory Rate 14 Blood Pressure 89/59 L Pulse Oximetry 96 Oxygen Delivery Method 03/03/25 03:30 03/03/25 04:00 03/03/25 04:41 Temperature Pulse Rate 146 H 150 H 148 H Respiratory Rate 14 12 Blood Pressure Pulse Oximetry 95 94 Oxygen Delivery Method 03/03/25 04:42 03/03/25 04:42 03/03/25 05:06 Temperature Pulse Rate 148 H Respiratory Rate 14 Blood Pressure 103/59 L 122/77 Pulse Oximetry 97 Oxygen Delivery Method 03/03/25 05:06 03/03/25 05:07 03/03/25 05:07 Temperature Pulse Rate 149 H 146 H Respiratory Rate 18 17 Blood Pressure 121/75 Pulse Oximetry 96 94 Oxygen Delivery Method 03/03/25 05:11 Temperature 97.8 F Pulse Rate Respiratory Rate Blood Pressure Pulse Oximetry Oxygen Delivery Method Oxygen Delivery Method Room Air Narrative Exam Narrative: General - in no distress, obese, sitting in bed CVS - tachyarrhythmic, irregular RS - normal respiratory effort GI - obese abdomen Neuro - w/o focal deficits Psych - anxious Objective ECG Impression: Atrial fibrillation 146 Labs 03/03/25 00:35 03/03/25 00:35 Labs: Laboratory Results - last 24 hr 03/03/25 03/03/25 00:35 05:00 WBC 4.7 RBC 3.89 L Hgb 13.0 Hct 38.7 MCV 99.5 MCH 33.5 MCHC 33.7 RDW 13.4 Plt Count 191 Neut % (Auto) 59.2 Lymph % (Auto) 29.4 [place] % (Auto) 8.7 Eos % (Auto) 2.3 Baso % (Auto) 0.4 Neut # (Auto) 2800 Lymph # (Auto) 1400 [place] # (Auto) 400 Eos # (Auto) 100 Baso # (Auto) 0 PT 11.5 INR 1.0 APTT 46 H Sodium 136 L Potassium 4.0 Chloride 105 Carbon Dioxide 25 BUN 23 H Creatinine 1.03 Estimated GFR 58 L BUN/Creatinine Ratio 22.3 H Glucose 91 Calcium 8.9 Magnesium 1.9 Total Bilirubin 1.0 AST 29 ALT 22 Alkaline Phosphatase 119 Total Creatine Kinase 38 Troponin I < 0.012 NT-Pro-B Natriuret Pep 314 H Total Protein 6.4 Albumin 3.6 Globulin 2.8 Albumin/Globulin Ratio 1.3 Lipase 183 Nasal Screen MRSA (PCR) Not detected Assessment & Plan Assessment and plan (1) Atrial fibrillation with rapid ventricular response: Status: Acute (2) GERD without esophagitis: Status: Acute (3) Generalized anxiety disorder: Status: Acute (4) Depression, major, recurrent: Qualifiers: Active/Remission status: in partial remission Qualified Code(s): F33.41 - Major depressive disorder, recurrent, in partial remission Status: Acute (5) Severe obesity (BMI >= 40): Status: Acute (6) Paroxysmal A-fib: Problem details: On Eliquis Status: Acute (7) Chronic anticoagulation: Status: Acute (8) Primary osteoarthritis involving multiple joints: Status: Acute (9) Mixed hyperlipidemia: Status: Acute Assessment & Plan narrative: A-fib with RVR - refusing CCB and BB - amiodarone drip instead - had 500 mcg of digoxin iv in the ED, can be repeated if needed - if hemodynamically unstable she will be cardioverted - DC - Eliquis - cardiology follow up GERD - PPI Anxiety / Depression - bupropione, escitalopram, Topamax HLD - statin DVT prophylaxis - therapeutic anticoagulation Patient consented to audio-video, telemedicine visit with RN assissting with the exam. Patient located at [place], [place], provider located in [place]. Time-Based Coding :: [TOTAL MINUTES] spent with patient and on the chart (including review of chart, obtaining history, exam, reviewing outside data, placing orders, documenting exam and treatment plan, and counseling patient) on [DATE]. Quality VTE Deep Vein Thrombosis/Pulmonary Embolism Present on Admission: No
[2025-03-03] MEDS: PANTOPRAZOLE DR 20 MG TABLET PO (06:53)
--- NOTE | 2025-03-03 07:38 | PC.ADMIT ---
[email or web address] [facility] Admission Note: The patient,Haleigh Parsons,74 y/o, was given written information regarding hospital policies, unit procedures and contact persons. Patient's smoking status: Never smoker. Vital Signs - 8 hr 03/03/25 00:38 03/03/25 01:20 03/03/25 01:27 Temperature 97.5 F L Pulse Rate 145 H 156 H 148 H Respiratory Rate 19 19 19 Blood Pressure 141/96 H Pulse Oximetry 100 96 95 Oxygen Delivery Method Room Air Oxygen Flow Rate 03/03/25 01:27 03/03/25 01:30 03/03/25 01:35 Temperature Pulse Rate 155 H 158 H Respiratory Rate 16 17 Blood Pressure 127/72 Pulse Oximetry 95 95 Oxygen Delivery Method Oxygen Flow Rate 03/03/25 01:40 03/03/25 01:45 03/03/25 01:50 Temperature Pulse Rate 153 H 149 H 152 H Respiratory Rate 18 13 15 Blood Pressure Pulse Oximetry 96 96 96 Oxygen Delivery Method Oxygen Flow Rate 03/03/25 01:54 03/03/25 01:54 03/03/25 01:55 Temperature Pulse Rate 152 H 153 H Respiratory Rate 19 14 Blood Pressure 119/53 L Pulse Oximetry 95 94 Oxygen Delivery Method Oxygen Flow Rate 03/03/25 02:00 03/03/25 02:00 03/03/25 02:05 Temperature Pulse Rate 134 H 129 H Respiratory Rate 12 20 Blood Pressure 78/48 L Pulse Oximetry 94 93 Oxygen Delivery Method Oxygen Flow Rate 03/03/25 02:07 03/03/25 02:10 03/03/25 02:15 Temperature Pulse Rate 131 H 133 H 120 H Respiratory Rate 14 11 L Blood Pressure 100/65 Pulse Oximetry 90 L 94 Oxygen Delivery Method Oxygen Flow Rate 03/03/25 02:20 03/03/25 02:25 03/03/25 02:25 Temperature Pulse Rate 113 H 116 H 129 H Respiratory Rate 11 L 14 Blood Pressure 100/60 Pulse Oximetry 94 95 Oxygen Delivery Method Oxygen Flow Rate 03/03/25 02:30 03/03/25 02:35 03/03/25 02:40 Temperature Pulse Rate 131 H 132 H 141 H Respiratory Rate 12 12 33 H Blood Pressure Pulse Oximetry 95 95 97 Oxygen Delivery Method Oxygen Flow Rate 03/03/25 02:44 03/03/25 02:45 03/03/25 02:50 Temperature Pulse Rate 134 H 134 H 138 H Respiratory Rate 11 L 10 L Blood Pressure 100/60 Pulse Oximetry 95 95 Oxygen Delivery Method Oxygen Flow Rate 03/03/25 02:55 03/03/25 02:56 03/03/25 02:56 Temperature Pulse Rate 142 H 139 H Respiratory Rate 16 19 Blood Pressure 92/62 Pulse Oximetry 97 97 Oxygen Delivery Method Oxygen Flow Rate 03/03/25 03:03 03/03/25 03:15 03/03/25 03:15 Temperature Pulse Rate 142 H 146 H Respiratory Rate 14 Blood Pressure 89/59 L Pulse Oximetry 96 Oxygen Delivery Method Oxygen Flow Rate 03/03/25 03:30 03/03/25 04:00 03/03/25 04:41 Temperature Pulse Rate 146 H 150 H 148 H Respiratory Rate 14 12 Blood Pressure Pulse Oximetry 95 94 Oxygen Delivery Method Oxygen Flow Rate 03/03/25 04:42 03/03/25 04:42 03/03/25 05:06 Temperature Pulse Rate 148 H Respiratory Rate 14 Blood Pressure 103/59 L 122/77 Pulse Oximetry 97 Oxygen Delivery Method Oxygen Flow Rate 03/03/25 05:06 03/03/25 05:07 03/03/25 05:07 Temperature Pulse Rate 149 H 146 H Respiratory Rate 18 17 Blood Pressure 121/75 Pulse Oximetry 96 94 Oxygen Delivery Method Oxygen Flow Rate 03/03/25 05:11 03/03/25 05:15 03/03/25 07:00 Temperature 97.8 F Pulse Rate 90 Respiratory Rate 18 Blood Pressure 87/54 L Pulse Oximetry 98 Oxygen Delivery Method Room Air Oxygen Flow Rate 0 Patient admitted to ICU room 231 at 0505. A/Ox4, nervous. HR up to 150 A-fib RVR, initial BP 120s/60s. Denies chest pain, has mild shortness of breath with activity. Night Hospitalist saw patient, ordered amiodarone infusion per protocol-see Emar. Is effective, HR starting to trend downward-vitals.
--- NOTE | 2025-03-03 08:07 | PM.HP.1 ---
History of Present Illness History of Present Illness Date Patient Seen: 03/03/25 Chief complaint: AFIB, SOB, Rapid Narrative: From night doctor: 74 y/o with PMH of atrial fibrillation, presented with palpitations, generalized weakness, shortness of breath while having a rapid A-fib ~ 140-150. She was giving conflicting nformations about what medications she used to be on, current ones, side effects etc. Apparently seen by design engineering manager 3 months ago. She mentioned intolerance of CCB and BB and prior to visit she was on rate control. In the ED she refused cardizem drip. IV metoprolol caused significant hypotension. She refused DCCV. Additional workup not suggestive of ACS or PNA. S: She is followed by Dr. Wolf, EPS cardiology at [facility]. She is on mcfp Eliquis. Last AF was about a year ago. She dropped BP with metoprolol in the ED. She feels she has not tolerated Diltiazem before. [facility] Medical History Lipomatosis dolorosa Scoliosis Fractures Positive PPD (~2006) Measles (~1957) Chicken pox (~1956) Anemia (~1990) Vertigo (~2014) History of urinary incontinence (~1987) Fecal incontinence (~1991) Hemorrhoid Vitamin D deficiency History of cervical cancer B12 deficiency Severe obesity (BMI >= 40) History of Guillain-[place] syndrome GERD without esophagitis Generalized anxiety disorder Depression, major, recurrent Age-related osteoporosis without current pathological fracture Chronic low back pain (~1969) Chronic anticoagulation Primary osteoarthritis involving multiple joints Mixed hyperlipidemia DDD (degenerative disc disease) Chronic anemia Depression Dry skin Easy bruisability Fatty liver JL on CPAP (~2019) Hearing impaired (~2014) Macular degeneration of both eyes RLS (restless legs syndrome) (~09/2021) Fibromyalgia (~1996) Esophageal spasm Paroxysmal A-fib Surgical History Anesthesia History of total hysterectomy History of hernia repair History of arthroplasty of right knee (08/20/21) Status post total knee replacement, right History of bladder surgery Hx of arthroscopy of right knee History of surgery Hx of abdominoplasty History of hysterectomy Hx of appendectomy (~1991) Hx of cholecystectomy (~1991) Hx of bariatric surgery (~1991) Family History Father History of heart disease Mother Stroke Brother Stroke Brother Subdural hemorrhage Family/Other ADHD Mitral regurgitation History of bipolar disorder Atrial fibrillation Mental health problem Social History details: x 3, 3 children, retired, part-time RN household members: none Smoking Status: Never smoker alcohol intake: current Meds Home Medications and Allergies Home Medications ?Medication ?Instructions ?Recorded ?Confirmed ?Type acetaminophen 325 mg tablet 650 mg (2 x 325 mg) PO TID PRN 08/24/21 03/03/25 Rx fever or pain #90 tabs apixaban 5 mg tablet (Eliquis) 5 mg PO BID #180 tabs 01/15/23 03/03/25 Rx cyanocobalamin (vitamin B-12) 1,000 mcg IM Q4W #3 mL 01/15/23 03/03/25 Rx 1,000 mcg/mL injection solution omeprazole 20 mg capsule,delayed 20 mg PO DAILY #90 caps 01/15/23 03/03/25 Rx release syringe with needle 3 mL 25 x 1 #100 ea 01/15/23 03/03/25 History 1/2 (BD Luer-Brittany Syringe) vit C 250 mg-vit E 90 mg-zinc 40 1 tab PO BID 01/15/23 03/03/25 History mg-copper 1 go-qasqeh-pdlcfl capsule (PreserVision AREDS-2) Fish oil [place] 3 (250 +50) 1 tab PO DAILY 01/20/23 03/03/[address] Iron (Glyconade) 1 cap PO DAILY 01/20/23 03/03/25 History liquid 18mg QD Nature[place] [address] Vitamin D3 liquid 1 dose PO DAILY 01/20/23 03/03/25 History 1000mg QD naltrexone 50 mg tablet 50 mg PO DAILY 11/12/23 03/03/25 History ergocalciferol (vitamin D2) 1,250 2,500 mcg (2 x 1,250 mcg (50,000 10/17/24 03/03/25 Rx mcg (50,000 unit) capsule unit)) PO QWEEK #24 caps magnesium gluconate 30 mg (550 mg) 30 mg PO BID 03/03/25 03/03/25 History tablet multivitamin (Daily Multi-Vitamin 1 tab PO DAILY 03/03/25 03/03/25 History tablet) semaglutide (weight loss) 2.4 2.4 mg SUBCUT Q7D 03/03/25 03/03/25 History mg/0.75 mL subcutaneous pen injector (Macho) Allergies Allergy/AdvReac Type Severity Reaction Status Date / Time Iodinated Contrast Media Allergy Severe Difficulty Verified 11/12/23 12:44 Breathing methocarbamol (From Robaxin) Allergy Intermediate Rash Verified 11/12/23 12:44 ferrous sulfate AdvReac Mild Gastrointestinal Verified 11/12/23 12:44 Upset Review of Systems Review of Systems Narrative: All else reviewed and otherwise unremarkable except as noted in the history and physical. Exam Vital Signs (past 8 hours): - 03/03/25 00:38 03/03/25 01:20 03/03/25 01:27 Temperature 97.5 F L Pulse Rate 145 H 156 H 148 H Respiratory Rate 19 19 19 Blood Pressure 141/96 H Pulse Oximetry 100 96 95 Oxygen Delivery Method Room Air Oxygen Flow Rate 03/03/25 01:27 03/03/25 01:30 03/03/25 01:35 Temperature Pulse Rate 155 H 158 H Respiratory Rate 16 17 Blood Pressure 127/72 Pulse Oximetry 95 95 Oxygen Delivery Method Oxygen Flow Rate 03/03/25 01:40 03/03/25 01:45 03/03/25 01:50 Temperature Pulse Rate 153 H 149 H 152 H Respiratory Rate 18 13 15 Blood Pressure Pulse Oximetry 96 96 96 Oxygen Delivery Method Oxygen Flow Rate 03/03/25 01:54 03/03/25 01:54 03/03/25 01:55 Temperature Pulse Rate 152 H 153 H Respiratory Rate 19 14 Blood Pressure 119/53 L Pulse Oximetry 95 94 Oxygen Delivery Method Oxygen Flow Rate 03/03/25 02:00 03/03/25 02:00 03/03/25 02:05 Temperature Pulse Rate 134 H 129 H Respiratory Rate 12 20 Blood Pressure 78/48 L Pulse Oximetry 94 93 Oxygen Delivery Method Oxygen Flow Rate 03/03/25 02:07 03/03/25 02:10 03/03/25 02:15 Temperature Pulse Rate 131 H 133 H 120 H Respiratory Rate 14 11 L Blood Pressure 100/65 Pulse Oximetry 90 L 94 Oxygen Delivery Method Oxygen Flow Rate 03/03/25 02:20 03/03/25 02:25 03/03/25 02:25 Temperature Pulse Rate 113 H 116 H 129 H Respiratory Rate 11 L 14 Blood Pressure 100/60 Pulse Oximetry 94 95 Oxygen Delivery Method Oxygen Flow Rate 03/03/25 02:30 03/03/25 02:35 03/03/25 02:40 Temperature Pulse Rate 131 H 132 H 141 H Respiratory Rate 12 12 33 H Blood Pressure Pulse Oximetry 95 95 97 Oxygen Delivery Method Oxygen Flow Rate 03/03/25 02:44 03/03/25 02:45 03/03/25 02:50 Temperature Pulse Rate 134 H 134 H 138 H Respiratory Rate 11 L 10 L Blood Pressure 100/60 Pulse Oximetry 95 95 Oxygen Delivery Method Oxygen Flow Rate 03/03/25 02:55 03/03/25 02:56 03/03/25 02:56 Temperature Pulse Rate 142 H 139 H Respiratory Rate 16 19 Blood Pressure 92/62 Pulse Oximetry 97 97 Oxygen Delivery Method Oxygen Flow Rate 03/03/25 03:03 03/03/25 03:15 03/03/25 03:15 Temperature Pulse Rate 142 H 146 H Respiratory Rate 14 Blood Pressure 89/59 L Pulse Oximetry 96 Oxygen Delivery Method Oxygen Flow Rate 03/03/25 03:30 03/03/25 04:00 03/03/25 04:41 Temperature Pulse Rate 146 H 150 H 148 H Respiratory Rate 14 12 Blood Pressure Pulse Oximetry 95 94 Oxygen Delivery Method Oxygen Flow Rate 03/03/25 04:42 03/03/25 04:42 03/03/25 05:06 Temperature Pulse Rate 148 H Respiratory Rate 14 Blood Pressure 103/59 L 122/77 Pulse Oximetry 97 Oxygen Delivery Method Oxygen Flow Rate 03/03/25 05:06 03/03/25 05:07 03/03/25 05:07 Temperature Pulse Rate 149 H 146 H Respiratory Rate 18 17 Blood Pressure 121/75 Pulse Oximetry 96 94 Oxygen Delivery Method Oxygen Flow Rate 03/03/25 05:11 03/03/25 05:15 03/03/25 07:00 Temperature 97.8 F Pulse Rate 90 Respiratory Rate 18 Blood Pressure 87/54 L Pulse Oximetry 98 Oxygen Delivery Method Room Air Oxygen Flow Rate 0 Oxygen Delivery Method Room Air Oxygen Flow Rate 0 Narrative Exam Narrative: NAD, alert and oriented, fluent speech, calm. Normocephalic skull, EOMI, anicteric sclera, symmetric pupils. Oropharynx unremarkable, no droop. Neck supple, midline trachea, no adenopathy. Lungs clear, normal rate and effort. Heart irregular, no murmur gallop or rub. Abdomen is soft, non distended and non tender. Extremities are free of edema. Skin is free of rash or lesions. Joints are not swollen or deformed. Judgment appears to be normal. Objective ECG Impression: Intervals [place] Rate: 147 P: -28 [place]: 164 QRS: 13 QRSD: 78 T: 26 QT: 264 QTc: 413 Interpretive Statements Critical Test Result: High HR Sinus tachycardia Cannot rule out Inferior infarct , age undetermined Imaging Multiple studies: : Radiologist's impression: CXR: No acute cardiopulmonary pathology. ECHO (08/09): 1. The left ventricular contractility is normal. Estimate ejection fraction is greater than 55% with no segmental wall motion abnormalities. No LVH. Age- appropriate diastolic function. 2. The right ventricular contractility is normal. 3. All cardiac chambers are of normal size. 4. Mild eccentric tricuspid regurgitation with estimated pulmonary systolic artery pressures of 29 mmHg. 5. No obvious intracardiac shunts. The intra-atrial septum is mobile but not aneurysmal. 6. No obvious intracardiac masses nor thrombi. 7. No hemodynamically significant pericardial effusion. 8. Low right-sided filling pressures. Conclusion: Normal biventricular systolic function with mild tricuspid regurgitation without pulmonary hypertension. Labs 03/03/25 00:35 03/03/25 00:35 Labs: Laboratory Results - last 24 hr 03/03/25 03/03/25 00:35 05:00 WBC 4.7 RBC 3.89 L Hgb 13.0 Hct 38.7 MCV 99.5 MCH 33.5 MCHC 33.7 RDW 13.4 Plt Count 191 Neut % (Auto) 59.2 Lymph % (Auto) 29.4 [place] % (Auto) 8.7 Eos % (Auto) 2.3 Baso % (Auto) 0.4 Neut # (Auto) 2800 Lymph # (Auto) 1400 [place] # (Auto) 400 Eos # (Auto) 100 Baso # (Auto) 0 PT 11.5 INR 1.0 APTT 46 H Sodium 136 L Potassium 4.0 Chloride 105 Carbon Dioxide 25 BUN 23 H Creatinine 1.03 Estimated GFR 58 L BUN/Creatinine Ratio 22.3 H Glucose 91 Calcium 8.9 Magnesium 1.9 Total Bilirubin 1.0 AST 29 ALT 22 Alkaline Phosphatase 119 Total Creatine Kinase 38 Troponin I < 0.012 NT-Pro-B Natriuret Pep 314 H Total Protein 6.4 Albumin 3.6 Globulin 2.8 Albumin/Globulin Ratio 1.3 Lipase 183 Nasal Screen MRSA (PCR) Not detected Assessment & Plan Assessment & Plan narrative: 1. Atrial fibrillation, active. 2. GERD, stable. 3. Anxiety 4. Depression 5. HLD PLAN: -Complete Amiodarone infusion.. -Consider cardioversion. -discussed with Dr Wolf. -Continue Eliquis. Anticipate 2 midnights in the hospital, supports inpatient status Time-Based Coding :: 35 min spent with patient and on the chart (including review of chart, obtaining history, exam, reviewing outside data, placing orders, documenting exam and treatment plan, and counseling patient) on 03/03. Quality VTE Deep Vein Thrombosis/Pulmonary Embolism Present on Admission: No MIPS - Admit I confirm the patient?s Advance Care Plan is present, Code status is documented, Surrogate decision maker is in patient?s record [If Yes, STOP here]: Yes The patient?s Advance Care plan is not present because I confirmed today that the patient does not wish or was not able to name a surrogate decision maker or provide an Advance Care Plan.: Yes MIPS - Meds 'Current medications' to include all prescriptions, [id number]-[id number] products, herbals, cannabis/cannabidiol products, and vitamin/mineral/dietary (nutritional) supplements. I have utilized all available resources to obtain, update, or review the patient?s current medications. [If Yes, STOP here]: Yes
[2025-03-03] MEDS: APIXABAN 5 MG TABLET PO (10:36)
[2025-03-03] MEDS: AMIODARONE 360 MG/200 ML PIGGYBACK 16.7 MG IV (11:32)
--- NOTE | 2025-03-03 11:42 | INF.NOTE ---
Amiodarone 360mg/200mL 2nd infusion (33.33mL/hr) completed with small waste due to Holt IV pump not notifying of near-end of infusion, air in line.
--- NOTE | 2025-03-03 12:26 | CM.DANOTE ---
DCP Assessment Note: Pt is a 74yo female, resident of [place], is admitted for AFIB with RVR. Pt lives in a house alone. Pt's Primary Care Provider is Dr. Yamilka Oneal MD ([facility]) and insurance is 37coins. Reviewed chart and discussed with multidisciplinary team pt's medical status and initial discharge needs. Per hospitalist, pt to obtain IV medications to hopefully help her convert rhythm before discharge home on 03/05, possibly. DCP met w/patient at bedside; introduced self and role. Patient was found in bed, alert and oriented, cooperative with assessment. Pt confirmed living situation and good support in daughter (lives in [place]) as well as her neighbors, congregational community. Pt expressed preference in discharge home when cleared. Pt has a of [facility] in 2021. Pt does not think she needs any referral in the community at this time. Pt states she drove herself to the ED and parked her 2019 Honda [employer] (Black) in the Handicap stall, plans to drive self home. ICE SCULPTOR notified [facility] [employer]. Plan: Anticipating dc home on Thursday, 03/05 or when medically cleared, will transport self home. CM team will follow closely for coordination of discharge plans. Kalyn Miles [facility] Discharge Planning/Care Management CM Discharge Assessment Start: 03/03/25 04:51 Freq: Status: Active Protocol: Document 03/03/25 12:21 MW (Rec: 03/03/25 12:25 MW [id number]) Discharge Planning Assessment Assigned Discharge RJ Mccain Maternity Nurse Provider Yamilka Oneal MD ([facility]) Insurance BCBS DPOA/Assigned Kenyatta Medina Daughter Designee Name Contact Information [phone] Advance Directives? Yes Advance Directives No on File History Provided By Patient,Medical Record Prior Living House Arrangements Household Members none Type of Drives own vehicle transporation used prior to admit Independent with ADL Yes 's Is patient alert and Yes oriented? Discharge Plan Home Transportation Self - parked in ED parking lot. Notified Security. Arrangement Referrals Initiated None needed Whiteboard Updated Yes in Patient Room with name and ext. # of [place] Screen Operator Comment [phone] Review Status In Process Please Provide Date 03/03/25 Initial DC Assessment Was Performed Next Review Type Continued Stay Review
--- NOTE | 2025-03-03 12:32 | PC.NURSE ---
Addendum entered by May Joy RN 03/03/25 15:31: Pt agreeable to discharge. IV discontinued, telemetry removed. Pt wheeled via w/c by this RN to private vehicle at approximately 1445. Addendum entered by May Joy RN 03/03/25 13:00: Pt HR NSR, provider notified, EKG obtained as ordered. Care ongoing. Original Note: Day shift: Pt A&Ox4, able to make needs known. Ambulatory to BR SBA, denies SOB, denies dizziness. Pt expresses frustration in care leading up to/prior to admission to room 230 in ICU. Pt expressed wanting to talk with someone in regard to care. Deferred to charge nurse/nursing care partner. Tolerating meals, HR afib CVR to RVR 80's-120's, BP MAP >65's. Ambulating in halls SBA, HR 80's-90's. Care ongoing.
--- NOTE | 2025-03-03 12:56 | EKG_ITS ---
[id number] [address] Test Date: 2025-03-03 Pat Name: [facility] Department: [facility] Room: 231 Gender: Female Financial Systems Administrator: reese : 1950 Requested By: Order Number: [id number] Reading MD: Haseeb West MD Measurements Intervals [place] Rate: 65 P: -3 DC: 210 QRS: -4 QRSD: 82 T: 29 QT: 370 QTc: 384 Interpretive Statements Sinus rhythm with 1st degree AV block Cannot rule out Anterior infarct , age undetermined Electronically Signed On 03-05-2025 14:43:25 PDT by Haseeb West MD
--- NOTE | 2025-03-03 14:05 | PM.DS.1 ---
History of Present Illness History of Present Illness Chief complaint: AFIB, SOB, Rapid Narrative: From night doctor: 74 y/o with PMH of atrial fibrillation, presented with palpitations, generalized weakness, shortness of breath while having a rapid A-fib ~ 140-150. She was giving conflicting nformations about what medications she used to be on, current ones, side effects etc. Apparently seen by senior energy consultant 3 months ago. She mentioned intolerance of CCB and BB and prior to visit she was on rate control. In the ED she refused cardizem drip. IV metoprolol caused significant hypotension. She refused DCCV. Additional workup not suggestive of ACS or PNA. S: She is followed by Dr. Wolf, EPS cardiology at [facility]. She is on [facility] Eliquis. Last AF was about a year ago. She dropped BP with metoprolol in the ED. She feels she has not tolerated Diltiazem before. Discharge Providers Provider Date of admission: 03/03/25 04:08 Discharge Date: 03/03/25 Primary care physician: Yamilka Oneal MD Consults: Discussed via chat with her senior energy consultant, Dr. Wolf. He was assisted with treatment recommendations, and discharge planning. Discharge provider: Manuel Aguilar MD Summary Hospital Course Discharge Diagnosis: 1. Atrial fibrillation with RVR, resolved. 2. GERD, stable. 3. Anxiety 4. Depression 5. HLD Hospital Course: She presented with AFib and RVR. She noted that she does not tolerate diltiazem and was given a dose of metoprolol with hypotension. She was then given a dose digoxin. The patient was admitted to the floor and remained tachycardic. The admitting hospitalist placed her on an amiodarone drip which improved her rate control. Ultimately she went to a cardioversion spontaneously with amiodarone at about 12:30 p.m.. She was discussed with her primary senior energy consultant and we will be given oral amiodarone on a taper with close follow up next week with the Cardiology PA who works with Dr. Wolf. ECG after her chemical cardioversion was unremarkable. No ST segment changes were noted. Status at Discharge Cognitive/behavioral status at discharge: oriented Functional status at discharge: independent ambulation Overall status at discharge: patient is back to baseline Time Spent with Patient Time spent: Greater than 30 minutes Exam Vital Signs (past 8 hours): - 03/03/25 07:00 03/03/25 07:30 03/03/25 08:00 Temperature Pulse Rate 90 115 H Respiratory Rate 18 16 Blood Pressure 87/54 L 106/65 Pulse Oximetry 98 95 Oxygen Delivery Method Room Air Oxygen Flow Rate 0 0 03/03/25 08:00 03/03/25 09:00 03/03/25 10:00 Temperature Pulse Rate 117 H 120 H 108 H Respiratory Rate 18 18 18 Blood Pressure 94/56 L 108/61 84/52 L Pulse Oximetry Oxygen Delivery Method Oxygen Flow Rate 03/03/25 10:30 03/03/25 11:00 03/03/25 11:45 Temperature 97.7 F Pulse Rate 92 H 85 Respiratory Rate 16 Blood Pressure 99/65 109/64 Pulse Oximetry Oxygen Delivery Method Oxygen Flow Rate Oxygen Delivery Method Room Air Oxygen Flow Rate 0 Narrative Exam Narrative: NAD, alert and oriented. Fluent speech. Lungs are clear, normal rate and effort. Heart is regular, no murmur gallop or rub. Abdomen is soft, non distended. Extremities are free of edema. Objective ECG Impression: NSR after cardioversion (Chemical) Imaging Multiple studies: : Radiologist's impression: CXR: No acute cardiopulmonary pathology. ECHO (08/09): 1. The left ventricular contractility is normal. Estimate ejection fraction is greater than 55% with no segmental wall motion abnormalities. No LVH. Age- appropriate diastolic function. 2. The right ventricular contractility is normal. 3. All cardiac chambers are of normal size. 4. Mild eccentric tricuspid regurgitation with estimated pulmonary systolic artery pressures of 29 mmHg. 5. No obvious intracardiac shunts. The intra-atrial septum is mobile but not aneurysmal. 6. No obvious intracardiac masses nor thrombi. 7. No hemodynamically significant pericardial effusion. 8. Low right-sided filling pressures. Conclusion: Normal biventricular systolic function with mild tricuspid regurgitation without pulmonary hypertension. Labs 03/03/25 00:35 03/03/25 00:35 Labs: Laboratory Results - last 24 hr 03/03/25 03/03/25 00:35 05:00 WBC 4.7 RBC 3.89 L Hgb 13.0 Hct 38.7 MCV 99.5 MCH 33.5 MCHC 33.7 RDW 13.4 Plt Count 191 Neut % (Auto) 59.2 Lymph % (Auto) 29.4 Josephine % (Auto) 8.7 Eos % (Auto) 2.3 Baso % (Auto) 0.4 Neut # (Auto) 2800 Lymph # (Auto) 1400 Josephine # (Auto) 400 Eos # (Auto) 100 Baso # (Auto) 0 PT 11.5 INR 1.0 APTT 46 H Sodium 136 L Potassium 4.0 Chloride 105 Carbon Dioxide 25 BUN 23 H Creatinine 1.03 Estimated GFR 58 L BUN/Creatinine Ratio 22.3 H Glucose 91 Calcium 8.9 Magnesium 1.9 Total Bilirubin 1.0 AST 29 ALT 22 Alkaline Phosphatase 119 Total Creatine Kinase 38 Troponin I < 0.012 NT-Pro-B Natriuret Pep 314 H Total Protein 6.4 Albumin 3.6 Globulin 2.8 Albumin/Globulin Ratio 1.3 Lipase 183 Nasal Screen MRSA (PCR) Not detected [facility] Medical History Lipomatosis dolorosa Scoliosis Fractures Positive PPD (~2006) Measles (~1957) Chicken pox (~1956) Anemia (~1990) Vertigo (~2014) History of urinary incontinence (~1987) Fecal incontinence (~1991) Hemorrhoid Vitamin D deficiency History of cervical cancer B12 deficiency Severe obesity (BMI >= 40) History of Guillain-Belfair syndrome GERD without esophagitis Generalized anxiety disorder Depression, major, recurrent Age-related osteoporosis without current pathological fracture Chronic low back pain (~1969) Chronic anticoagulation Primary osteoarthritis involving multiple joints Mixed hyperlipidemia DDD (degenerative disc disease) Chronic anemia Depression Dry skin Easy bruisability Fatty liver JL on CPAP (~2019) Hearing impaired (~2014) Macular degeneration of both eyes RLS (restless legs syndrome) (~09/2021) Fibromyalgia (~1996) Esophageal spasm Paroxysmal A-fib Surgical History Anesthesia History of total hysterectomy History of hernia repair History of arthroplasty of right knee (08/20/21) Status post total knee replacement, right History of bladder surgery Hx of arthroscopy of right knee History of surgery Hx of abdominoplasty History of hysterectomy Hx of appendectomy (~1991) Hx of cholecystectomy (~1991) Hx of bariatric surgery (~1991) Family History Father History of heart disease Mother Stroke Brother Stroke Brother Subdural hemorrhage Family/Other ADHD Mitral regurgitation History of bipolar disorder Atrial fibrillation Mental health problem Social History details: x 3, 3 children, retired, part-time RN household members: none Smoking Status: Never smoker alcohol intake: current Discharge Assessment & Plan Assessment and Plan Assessment: 1. Atrial fibrillation with RVR, resolved. Plan of Treatment: Discharge on amiodarone 400 b.i.d. for 1 week, 400 daily for 1 week, 200 daily thereafter and follow up as scheduled on March 10 with physician law office assistant at [facility] in [place]. Discharge Plan Discharge Plan Patient Disposition: Home Provider Discharge Comment: Stable for discharge, follow up with 03/10 16:10 Kennedy DUGGAN [facility] [place]. Discharge orders & Medications Prescriptions: New amiodarone 400 mg tablet 400 mg PO BID Qty: 30 0RF Rx Instructions: 400 mg BID for 7 days, then 400 mg daily for 7 days, then 200 mg daily until cardiology follow up Continued [employer] [address] Iron (Glyconade) liquid 18mg QD 1 cap PO DAILY Rx Instructions: [employer] [address] Iron (Glyconade) liquid 18mg QD Fish oil Vernon 3 (250 +50) 1 tab PO DAILY Rx Instructions: Fish oil Vernon 3 (250 +50) Nature[address] Vitamin D3 liquid 1000mg QD 1 dose PO DAILY Rx Instructions: Nature?[address] Vitamin D3 liquid 1000mg QD ergocalciferol (vitamin D2) 1,250 mcg (50,000 unit) capsule 2,500 mcg PO QWEEK Qty: 24 0RF Rx Instructions: Dose increased to ergocalciferol 2500 mcg weekly. naltrexone 50 mg tablet 50 mg PO DAILY Patient Comments: 50mg tablet crushed in 500mL, 5mL taken PO Rx Instructions: 0.1 ml daily (DME) BD Luer-Brittany Syringe 3 mL 25 x 1 1/2 syringe See Rx Instructions .ROUTE .MEDSUPPLY Qty: 100 Patient Comments: [NO ORIGINAL SIG] Rx Instructions: As directed for b12 injections PreserVision AREDS-2 250-90-40-1 mg capsule 1 tab PO BID Eliquis 5 mg tablet 5 mg PO BID Qty: 180 3RF cyanocobalamin (vitamin B-12) 1,000 mcg/mL solution 1,000 mcg IM Q4W Qty: 3 3RF omeprazole 20 mg capsule,delayed release(DR/EC) 20 mg PO DAILY Qty: 90 3RF acetaminophen 325 mg Tablet 650 mg PO TID PRN (Reason: fever or pain) Qty: 90 2RF Wegovy 2.4 mg/0.75 mL pen injector 2.4 mg SUBCUT Q7D Patient Comments: [NO ORIGINAL SIG] multivitamin [Daily Multi-Vitamin] Tablet 1 tab PO DAILY magnesium gluconate 30 mg (550 mg) tablet 30 mg PO BID Follow up/Referrals: Yamilka Oneal MD [Primary Care Provider, Family Practice] Diet/Activity/Treatments Diet: Diet as Tolerated Visit Report/Discharge Packet Instructions: DI for Atrial Fibrillation, Amiodarone (By mouth) Stand Alone Forms: Patient Portal/API Discharge Data Primary Care Provider: Yamilka Oneal Attending Provider: Reno Brink Admit Date/Time: 03/03/25 04:08 Quality VTE Deep Vein Thrombosis/Pulmonary Embolism Present on Admission: No
[2025-03-03] MEDS: AMIODARONE 200 MG TABLET 400 MG PO (14:14)
== END 2025-03-03 14:45 | disposition home or self-care (01) ==
LOC: ED 04:04 → AC 04:09 → ICU 04:47
PROVIDERS: Admitting Provider Internal Medicine; Emergency Provider Emergency Medicine; PCP Family Medicine; Visit Provider Internal Medicine
DX: I48.91 Unspecified atrial fibrillation (principal); K21.9 Gastro-esophageal reflux disease without esophagitis; F41.1 Generalized anxiety disorder; F33.41 Major depressive disorder, recurrent, in partial remission; E66.01 Morbid (severe) obesity due to excess calories; M15.9 Polyosteoarthritis, unspecified; E78.2 Mixed hyperlipidemia; Z79.01 Long term (current) use of anticoagulants; Z68.41 Body mass index [BMI] 40.0-44.9, adult
CPT/HCPCS: 36415; 71045; 80053; 82550; 83690; 83735; 83880; 84484; 85025; 85610; 85730; 87797; 93005; 93010; 96361; 96365; 96366; 96375; 99284; 99291; 99292; G0378; J0282; J1160